=== PATIENT | male | born 1970 ===

== ENCOUNTER 2017-11-28 08:57 | Inpatient (IN) | payer OTHER ==
--- NOTE | 2017-11-28 09:32 | C.PDOC ---
History Of Present Illness 47 y/o male presents to ED with c/o vomiting and watery diarrhea for 4 days. Patient admits to binge drinking ETOH for 20 consecutive days and stopped 8 days ago. Admits to h/o drinking daily in the past. Patient also reports "my eyes are yellow," dark urine, feeling bloated when eating, and "brown" vomiting. (+) weakness. Patient denies fever, hematemisis, drug use, dysuria, sob, hematochezia, recent travel, or any other complaints at this time. 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 History/Exam Limitations: no limitations Onset/Duration Of Symptoms: Days Current Symptoms Are (Timing): Still Present Location Of Pain/Discomfort: Diffuse Past Medical History Reviewed: Historical Data, Nursing Documentation, Vital Signs Vital Signs: Last Vital Signs Temp 99.2 F 11/28/17 15:46 Pulse 65 11/28/17 15:46 Resp 18 11/28/17 15:46 BP 125/70 11/28/17 15:46 Pulse Ox 96 11/28/17 18:14 Surgical History: No Surg Hx Family History: States: No Known Family Hx - Social History Hx Tobacco Use: No Hx Alcohol Use: Yes (daily) Hx Substance Use: No - Immunization History Hx Influenza Vaccination: No Review Of Systems Except As Marked, All Systems Reviewed And Found Negative. Constitutional: Negative for: Fever, Chills Gastrointestinal: Positive for: Vomiting, Abdominal Pain, Diarrhea Genitourinary: Negative for: Dysuria, Hematuria Musculoskeletal: Negative for: Back Pain Skin: Negative for: Rash Physical Exam - Physical Exam Appears: Non-toxic, No Acute Distress Skin: Warm, Dry, No Rash, Jaundice Head: Atraumatic, Normacephalic Eye(s): bilateral: PERRL, EOMI, Scleral Icterus Nose: Normal Oral Mucosa: Moist Neck: Normal ROM, Supple Chest: Symmetrical Cardiovascular: Rhythm Regular Respiratory: Normal Breath Sounds, No Accessory Muscle Use, No Rales, No Rhonch i, No Wheezing Gastrointestinal/Abdominal: Tenderness (diffuse), Distention, No Guarding, No Rebound Back: No CVA Tenderness Extremity: Normal ROM Neurological/Psych: Oriented x3, Normal Speech, Normal Cognition ED Course And Treatment - Laboratory Results Result Diagrams: 11/28/17 18:10 09/24/18 10:17 O2 Sat by Pulse Oximetry: 96 (RA) Pulse Ox Interpretation: Normal - CT Scan/US CT abd/pelvis Other Rad Studies (CT/US): Read By Radiologist, Radiology Report Reviewed CT/US Interpretation: PROCEDURE: CT Abdomen and Pelvis with contrast. HISTORY: Abdominal pain. COMPARISON: None. TECHNIQUE: CT scan of the abdomen and pelvis was performed after administration of intravenous contrast. Oral contrast was not administered. Coronal and sagittal reformatted images were obtained. Contrast dose: 100 mL Visipaque 320. Radiation dose: Total exam DLP = 1020.41 mGy-cm. This CT exam was performed using one or more of the following dose reduction techniques: Automated exposure control, adjustment of the mA and/or kV according to patient size, and/or use of iterative reconstruction technique. FINDINGS: LOWER THORAX: The lung bases are clear. There is mild subsegmental atelectasis in the left lateral basal segment. LIVER: Moderate hepatomegaly and fatty liver. The liver has nodular contour.. No gross lesion or ductal dilatation. GALLBLADDER AND BILE DUCTS: The gallbladder is distended. There are no calcified gallstones. There is mild gallbladder wall thickening. PANCREAS: Normal in size with homogeneous enhancement. No gross lesion or ductal dilatation. SPLEEN: Moderate splenomegaly. Normal enhancement. ADRENALS: No discrete nodule. KIDNEYS AND URETERS: Normal in size with homogeneous enhancement. No hydronephrosis. No solid mass. VASCULATURE: No aortic aneurysm. BOWEL: The proximal small bowel loops are normal in caliber. There is mild dilatation of fluid-filled mid small bowel loops in the right mid abdomen. The distal small bowel loops and terminal ileum are normal. The colon is normal in caliber and there is fluid and fecal material in the colon and rectum. No bowel obstruction. APPENDIX: Normal appendix. PERITONEUM: Small amount of free fluid in the right lower quadrant.. No free air. LYMPH NODES: No enlarged lymph nodes. BLADDER: Well distended and normal in appearance. REPRODUCTIVE: The prostate gland is normal in size. BONES: No acute fracture. Within normal limits for the patient's age. OTHER FINDINGS: None. IMPRESSION: 1. Mild dilatation of fluid-filled mid small bowel loops in the right mid abdomen, nonspecific and could be related to nonspecific enteritis, ileus or developing partial small bowel obstruction. 2. Moderate hepatosplenomegaly and fatty liver. Nodular contour of the liver could rep resent cirrhosis. Progress Note: Blood work, Urine culture, UA ordered. D/w patient CT scan findings and discussed plan of admission. D/w Dr. Azar hospitalist, accepted patient under her service for hyperbilirubinemia. Disposition - Disposition Disposition: HOSPITALIZED Disposition Time: 15:00 Condition: STABLE - Clinical Impression Clinical Impression: Hyperbilirubinemia, Cirrhosis, Alcohol abuse - PA / [employer] / Resident Statement MD/DO has reviewed & agrees with the documentation as recorded. - Scribe Statement The provider has reviewed the documentation as recorded by the Jose Cruzibsarath Bonilla All medical record entries made by the Juan Manuel were at my direction and personally dictated by me. I have reviewed the chart and agree that the record accurately reflects my personal performance of the history, physical exam, medical decision making, and the department course for this patient. I have also personally directed, reviewed, and agree with the discharge instructions and disposition.
[2017-11-28 10:24] LABS: BASO # 0.1 K/uL (0.0-0.2); BASO % 1.4 % (0.0-2.0); EOS # 0.1 K/uL (0.0-0.7); EOS % 1.3 % (0.0-4.0); HEMOGLOBIN 13.7 g/dL (12.0-18.0); LYMPH # 1.2 K/uL (1.0-4.3); LYMPH % 12.6 % (20.0-40.0); MEAN CELL VOLUME 101.5 fL (80.0-94.0); MEAN CORPUSCULAR HEMOGLOBIN 35.7 pg (27.0-31.0); MEAN CORPUSCULAR HGB CONC 35.2 g/dL (33.0-37.0); MEAN PLATELET VOLUME 10.2 fL (7.2-11.7); MONO # 0.6 K/uL (0.0-0.8); NEUT # 7.2 K/uL (1.8-7.0); NEUT % 77.7 % (50.0-75.0); RBC 3.82 Mil/uL (4.40-5.90); RED CELL DISTRIBUTION WIDTH 15.4 % (11.5-14.5); WHITE BLOOD COUNT 9.2 K/uL (4.8-10.8)
[2017-11-28 10:33] LABS: URINE BACTERIA RARE (<OCC); URINE BILIRUBIN 2+ (NEGATIVE); URINE BLOOD NEGATIVE (NEGATIVE); URINE CLARITY Clear (Clear); URINE COLOR Amber (YELLOW); URINE GLUCOSE (UA) NORMAL (Normal); URINE LEUKOCYTE ESTERASE NEG Leu/uL (Negative); URINE PROTEIN NEGATIVE (NEGATIVE)
[2017-11-28 10:37] LABS: ALB/GLOB RATIO 0.8 (1.0-2.1); ALBUMIN 3.6 g/dL (3.5-5.0); ALT/SGPT 65 U/L (21-72); AMYLASE 60 U/L (30-110); AST/SGOT 91 U/L (17-59); BLOOD UREA NITROGEN 6 mg/dL (9-20); CALCIUM 8.5 mg/dl (8.6-10.4); GFR NON-AFRICAN AMERICAN > 60; LIPASE 143 U/L (23-300)
[2017-11-28 11:08] LABS: HEPATITIS B SURFACE AG Negative (NEGATIVE)
[2017-11-28 11:10] LABS: BARBITURATES, UR NEGATIVE (NEGATIVE); BENZODIAZEPINES, UR NEGATIVE (NEGATIVE)
[2017-11-28 11:13] LABS: HEPATITIS A IGM NEGATIVE (NEGATIVE); HEPATITIS B CORE AB NEGATIVE (NEGATIVE)
[2017-11-28 11:25] LABS: HEPATITIS C ANTIBODY NEGATIVE (NEGATIVE)
[2017-11-28 11:27] LABS: OPIATES, UR NEGATIVE (NEGATIVE); PHENCYCLIDINE, UR NEGATIVE (NEGATIVE)
[2017-11-28] MEDS ORDERED: Iodixanol 320 MG/ML 100 ML BOTTLE IV ONE (12:02)
--- NOTE | 2017-11-28 13:21 | CT ---
Date of service: 11/28/2017 PROCEDURE: CT Abdomen and Pelvis with contrast HISTORY: Abdominal pain COMPARISON: None. TECHNIQUE: CT scan of the abdomen and pelvis was performed after administration of intravenous contrast. Oral contrast was not administered. Coronal and sagittal reformatted images were obtained. Contrast dose: 100 mL Visipaque 320 Radiation dose: Total exam DLP = 1020.41 mGy-cm. This CT exam was performed using one or more of the following dose reduction techniques: Automated exposure control, adjustment of the mA and/or kV according to patient size, and/or use of iterative reconstruction technique. FINDINGS: LOWER THORAX: The lung bases are clear. There is mild subsegmental atelectasis in the left lateral basal segment. LIVER: Moderate hepatomegaly and fatty liver. The liver has nodular contour.. No gross lesion or ductal dilatation. GALLBLADDER AND BILE DUCTS: The gallbladder is distended. There are no calcified gallstones. There is mild gallbladder wall thickening. PANCREAS: Normal in size with homogeneous enhancement. No gross lesion or ductal dilatation. SPLEEN: Moderate splenomegaly. Normal enhancement. ADRENALS: No discrete nodule. KIDNEYS AND URETERS: Normal in size with homogeneous enhancement. No hydronephrosis. No solid mass. VASCULATURE: No aortic aneurysm. BOWEL: The proximal small bowel loops are normal in caliber. There is mild dilatation of fluid-filled mid small bowel loops in the right mid abdomen. The distal small bowel loops and terminal ileum are normal. The colon is normal in caliber and there is fluid and fecal material in the colon and rectum. No bowel obstruction. APPENDIX: Normal appendix. PERITONEUM: Small amount of free fluid in the right lower quadrant.. No free air. LYMPH NODES: No enlarged lymph nodes. BLADDER: Well distended and normal in appearance. REPRODUCTIVE: The prostate gland is normal in size. BONES: No acute fracture. Within normal limits for the patient's age. OTHER FINDINGS: None. IMPRESSION: 1. Mild dilatation of fluid-filled mid small bowel loops in the right mid abdomen, nonspecific and could be related to nonspecific enteritis, ileus or developing partial small bowel obstruction. 2. Moderate hepatosplenomegaly and fatty liver. Nodular contour of the liver could represent cirrhosis.
--- NOTE | 2017-11-28 17:02 | CP.PCM.HP ---
<Darvin Montalvo - Last Filed: 11/28/17 17:53> History of Present Illness - History of Present Illness History of Present Illness: Darvin Montalvo DO PGY-1, [facility] History and Physical for Dr. Azar's Service This is a 47 y o male PMHx EtOH abuse who presents today c/o 4 day history of vomiting and watery diarrhea. Pt admitted to coffee-ground emesis 4x/day for the past 4 days unchanged with eating or drinking fluids. The watery diarrhea was after every meal, denied blood or changes in color of stool. Pt also admits to associated abd pain in the mid-lower abd, that radiates laterally but not to his back. Admits that the pain worsens with eating any food at home. Denies trying new foods or recent changes in diet. Stated the pain was 9/10 this morning at 7:00 am after drinking juice and water at home, and thus decided to come to the ED. Pt not complaining of pain currently, states it is a 0/10, did not require pain medications in the ED. Pt also admits to associated fatigue/ tiredness and generalized weakness, able to walk without concerns, but feeling heaviness in his legs b/l 2/2 to the fatigue. Denied hx of sick contacts, recent anbx use, or recent travel. Denied fevers, chills, headache, chest pain, shortness of breath, nausea, constipation, urinary complaints, or other symptoms. 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 absent: Chills, Fever, Night Sweats , Weight Gain, Weight Loss - EENT Eyes: absent: Blurred Vision, Change in Vision Ears: absent: Decreased Hearing, Tinnitus, Disequilibrium, Dizziness Nose/Mouth/Throat: absent: Epistaxis, Dysphagia, Hoarsness, Mouth Pain, Throat Swelling - Cardiovascular Cardiovascular: absent: Chest Pain, Dyspnea on Exertion, Edema, Pain Radiating to Arm/Neck/Jaw, Palpitations - Respiratory Respiratory: absent: Cough, Dyspnea, Hemoptysis, Dyspnea on Exertion, Wheezing - Gastrointestinal Gastrointestinal: Abdominal Pain, Bloating, Coffee Ground Emesis, Diarrhea, Loose Stools, Vomiting. absent: Dysphagia, Early Satiety, Excessive Flatus, Nausea - Genitourinary Genitourinary: absent: Change in Urinary Stream, Difficulty Urinating, Dysuria, Hematuria, Urinary Frequency - Musculoskeletal Musculoskeletal: absent: Numbness, Tingling - Integumentary Integumentary: Jaundice. absent: Bleeding Lesions, Rash, Swelling, Unusual Bruising - Neurological Neurological: Weakness. absent: Abnormal Gait, Abnormal Movements, Behavioral Changes, Confusion, Syncope, Tremor - Psychiatric Psychiatric: absent: Anxiety, Auditory Hallucinations, Behavioral Changes, Confusion, Visual Hallucinations, Tactile Hallucinations - Hematologic/Lymphatic Hematologic: absent: Easy Bleeding, Easy Bruising Past Patient History - Past Social History Smoking Status: Never Smoked - CARDIAC Hx Hypertension: Yes - PSYCHIATRIC Hx Substance Use: No - SURGICAL HISTORY Hx Surgeries: No Meds Allergies/Adverse Reactions: Allergies Allergy/AdvReac Type Severity Reaction Status Date / Time Penicillins Allergy RASH Verified 11/28/17 22:38 Physical Exam - Constitutional Appears: Non-toxic, No Acute Distress Additional comments: Diffuse jaundice noted on exam, obese - Head Exam Head Exam: ATRAUMATIC, NORMOCEPHALIC - Eye Exam Eye Exam: EOMI, PERRL, Scleral icterus - ENT Exam ENT Exam: Mucous Membranes Moist - Neck Exam Neck exam: Positive for: Normal Inspection Additional comments: Supple, no JVD - Respiratory Exam Respiratory Exam: Clear to Auscultation Bilateral, NORMAL BREATHING PATTERN. absent: Rales, Rhonchi, Wheezes - Cardiovascular Exam Cardiovascular Exam: REGULAR RHYTHM, +S1, +S2. absent: Diastolic murmur, Gallop , Rubs, Systolic Murmur - GI/Abdominal Exam GI & Abdominal Exam: Distended, Normal Bowel Sounds, Soft. absent: Firm, Guarding, Rebound Additional comments: Hepatosplenomegaly, no tenderness to palpation in all 4 quadrants, no caput medusae or spider angiomas noted on exam - Extremities Exam Extremities exam: Positive for: normal capillary refill, pedal pulses present Additional comments: Palmar erythema noted in hands b/l - Neurological Exam Neurological exam: Alert, CN II-XII Intact, Normal Gait, Oriented x3, Reflexes Normal Additional comments: Sensation and motor intact throughout, no asterixis - Psychiatric Exam Psychiatric exam: Normal Affect, Normal Mood - Skin Skin Exam: Dry, Intact, Warm Additional comments: Diffuse jaundice on exam Results - Vital Signs Recent Vital Signs: Last Vital Signs Temp 99.2 F 11/28/17 15:46 Pulse 65 11/28/17 15:46 Resp 18 11/28/17 15:46 BP 125/70 11/28/17 15:46 Pulse Ox 96 11/28/17 15:54 - Labs Result Diagrams: 11/28/17 10:17 11/28/17 10:17 Labs: Laboratory Results - last 24 hr 11/28/17 11/28/17 11/28/17 10:17 10:17 10:17 WBC 9.2 D RBC 3.82 L Hgb 13.7 D Hct 38.8 MCV 101.5 H MCH 35.7 H MCHC 35.2 RDW 15.4 H Plt Count 166 MPV 10.2 Neut % (Auto) 77.7 H Lymph % (Auto) 12.6 L Erie % (Auto) 7.0 Eos % (Auto) 1.3 Baso % (Auto) 1.4 Neut # (Auto) 7.2 H Lymph # (Auto) 1.2 Erie # (Auto) 0.6 Eos # (Auto) 0.1 Baso # (Auto) 0.1 Sodium 136 Potassium 3.6 Chloride 105 Carbon Dioxide 20 L Anion Gap 15 BUN 6 L Creatinine 0.4 L Est GFR ( Amer) > 60 Est GFR (Non-Af Amer) > 60 Random Glucose 116 H Calcium 8.5 L Total Bilirubin 12.1 H AST 91 H ALT 65 Alkaline Phosphatase 290 H Total Protein 7.9 Albumin 3.6 Globulin 4.3 H Albumin/Globulin Ratio 0.8 L Amylase 60 Lipase 143 Urine Color Tamika Urine Clarity Clear Urine pH 6.0 Ur Specific Gause 1.016 Urine Protein Negative Urine Glucose (UA) Normal Urine Ketones Negative Urine Blood Negative Urine Nitrate Negative Urine Bilirubin 2+ H Urine Urobilinogen 4.0 Ur Leukocyte Esterase Neg Urine WBC (Auto) 1 Urine RBC (Auto) 2 Urine Bacteria Rare Urine Opiates Screen Urine Methadone Screen Ur Barbiturates Screen Ur Phencyclidine Scrn Ur Amphetamines Screen U Benzodiazepines Scrn U Oth Cocaine Metabols U Cannabinoids Screen Alcohol, Quantitative < 10 Hepatitis A IgM Ab Hep Bs Antigen Hep B Core IgM Ab Hepatitis C Antibody 11/28/17 11/28/17 10:17 10:17 WBC RBC Hgb Hct MCV MCH MCHC RDW Plt Count MPV Neut % (Auto) Lymph % (Auto) Erie % (Auto) Eos % (Auto) Baso % (Auto) Neut # (Auto) Lymph # (Auto) Erie # (Auto) Eos # (Auto) Baso # (Auto) Sodium Potassium Chloride Carbon Dioxide Anion Gap BUN Creatinine Est GFR ( Amer) Est GFR (Non-Af Amer) Random Glucose Calcium Total Bilirubin AST ALT Alkaline Phosphatase Total Protein Albumin Globulin Albumin/Globulin Ratio Amylase Lipase Urine Color Urine Clarity Urine pH Ur Specific Gause Urine Protein Urine Glucose (UA) Urine Ketones Urine Blood Urine Nitrate Urine Bilirubin Urine Urobilinogen Ur Leukocyte Esterase Urine WBC (Auto) Urine RBC (Auto) Urine Bacteria Urine Opiates Screen Negative Urine Methadone Screen Negative Ur Barbiturates Screen Negative Ur Phencyclidine Scrn Negative Ur Amphetamines Screen Negative U Benzodiazepines Scrn Negative U Oth Cocaine Metabols Negative U Cannabinoids Screen Negative Alcohol, Quantitative Hepatitis A IgM Ab Negative Hep Bs Antigen Negative Hep B Core IgM Ab Negative Hepatitis C Antibody Negative Assessment & Plan - Assessment and Plan (Free Text) Assessment: This is a 47 y o male PMHx EtOH abuse who presented c/o 4 day history of vomiting and watery diarrhea. Found to have hyperbilirubinemia of 12.1, AST 91, ALT 65, ALP 290. Concern for hepatitis 2/2 EtOH abuse. Abd/pelvis CT on admission demonstrated mild dilatation of fluid-filled mid small bowel loops in R mid abdomen, non-specific, could be related to non-specific enteritis, ileus, or developing partial SBO; moderate hepatosplenomegaly and fatty liver, nodular contour of liver could represent cirrhosis. GI (Dr. Alarcon) and General Surgery ( Dr. Pemberton) consulted. Plan: Alcoholic hepatitis/cirrhosis AST 91, ALT 65, ALP 290, total bili 12.5 on admission 2+ bilirubin on U/a Utox neg, Hep B and C antibodies neg Amylase and lipase wnl GGT, direct bili, coags ordered HIV test pending Type and cross ordered for hx coffee-ground emesis, no active GI bleed at this time, transfusion consent signed by pt, continue to trend CBC Banana bag ordered Pt to remain NPO CT abd/pelvis findings as described above U/s abd complete demonstrates moderate hepatosplenomegaly, diffuse increased echogenicity in liver that may reflect hepatic steatosis however parenchymal infectious etiologies cannot be entirely excluded; thick GB wall and mild pericholecystic fluid nonspecific, 4 mm GB polyp along anterior wall, no cholelithiasis or bilary dilatation. GI consulted (Dr. Alarcon), recs appreciated Ascites Findings described on abd/pelvis CT Pending coags prior to possible paracentesis R/o spontaneous bacterial peritonitis as etiology vs. cirrhosis Cipro 400 mg IVPB q 12 h Flagyl 500 mg IV q 8 h Afebrile on admission, vitals stable, continue to monitor GI consulted, recs appreciated EtOH abuse Banana bag ordered Last EtOH intake by pt 8 days ago, out of period of demonstrating symptoms of EtOH withdrawal, continue to monitor Ileitis vs. GB distension R/o ileitis, enteritis, developing partial SBO on CT abd/pelvis; GB distension and mild GB wall thickening General Surgery consulted, recs appreciated Pt NPO Diarrhea Pending stool cx, stool ova and parasites GI consulted, recs appreciated Continue to monitor GI ppx: Protonix IVP q 12 h DVT ppx: SCDs Pt seen, examined with, and plan discussed with Dr. Azar, attending Darvin Montalvo DO PGY-1, [employer] Pager #[phone] <Amelia Azar V - Last Filed: 11/28/17 22:47> Results - Vital Signs Recent Vital Signs: Last Vital Signs Temp 99.4 F 11/28/17 21:44 Pulse 68 11/28/17 21:44 Resp 18 11/28/17 21:44 BP 125/72 11/28/17 21:44 Pulse Ox 96 11/28/17 21:44 - Labs Result Diagrams: 11/28/17 18:10 11/28/17 10:17 Labs: Laboratory Results - last 24 hr 11/28/17 11/28/17 11/28/17 10:17 10:17 10:17 WBC 9.2 D RBC 3.82 L Hgb 13.7 D Hct 38.8 MCV 101.5 H MCH 35.7 H MCHC 35.2 RDW 15.4 H Plt Count 166 MPV 10.2 Neut % (Auto) 77.7 H Lymph % (Auto) 12.6 L Erie % (Auto) 7.0 Eos % (Auto) 1.3 Baso % (Auto) 1.4 Neut # (Auto) 7.2 H Lymph # (Auto) 1.2 Erie # (Auto) 0.6 Eos # (Auto) 0.1 Baso # (Auto) 0.1 PT INR APTT Sodium 136 Potassium 3.6 Chloride 105 Carbon Dioxide 20 L Anion Gap 15 BUN 6 L Creatinine 0.4 L Est GFR ( Amer) > 60 Est GFR (Non-Af Amer) > 60 Random Glucose 116 H Calcium 8.5 L Total Bilirubin 12.1 H Direct Bilirubin GGT AST 91 H ALT 65 Alkaline Phosphatase 290 H Ammonia Total Protein 7.9 Albumin 3.6 Globulin 4.3 H Albumin/Globulin Ratio 0.8 L Amylase 60 Lipase 143 Urine Color Tamika Urine Clarity Clear Urine pH 6.0 Ur Specific Gause 1.016 Urine Protein Negative Urine Glucose (UA) Normal Urine Ketones Negative Urine Blood Negative Urine Nitrate Negative Urine Bilirubin 2+ H Urine Urobilinogen 4.0 Ur Leukocyte Esterase Neg Urine WBC (Auto) 1 Urine RBC (Auto) 2 Urine Bacteria Rare Urine Opiates Screen Urine Methadone Screen Ur Barbiturates Screen Ur Phencyclidine Scrn Ur Amphetamines Screen U Benzodiazepines Scrn U Oth Cocaine Metabols U Cannabinoids Screen Alcohol, Quantitative < 10 Hepatitis A IgM Ab Hep Bs Antigen Hep B Core IgM Ab Hepatitis C Antibody Blood Type Antibody Screen 11/28/17 11/28/17 11/28/17 10:17 10:17 18:10 WBC RBC Hgb Hct MCV MCH MCHC RDW Plt Count MPV Neut % (Auto) Lymph % (Auto) Erie % (Auto) Eos % (Auto) Baso % (Auto) Neut # (Auto) Lymph # (Auto) Erie # (Auto) Eos # (Auto) Baso # (Auto) PT 15.3 H INR 1.4 APTT 38 H Sodium Potassium Chloride Carbon Dioxide Anion Gap BUN Creatinine Est GFR ( Amer) Est GFR (Non-Af Amer) Random Glucose Calcium Total Bilirubin Direct Bilirubin GGT AST ALT Alkaline Phosphatase Ammonia Total Protein Albumin Globulin Albumin/Globulin Ratio Amylase Lipase Urine Color Urine Clarity Urine pH Ur Specific Gause Urine Protein Urine Glucose (UA) Urine Ketones Urine Blood Urine Nitrate Urine Bilirubin Urine Urobilinogen Ur Leukocyte Esterase Urine WBC (Auto) Urine RBC (Auto) Urine Bacteria Urine Opiates Screen Negative Urine Methadone Screen Negative Ur Barbiturates Screen Negative Ur Phencyclidine Scrn Negative Ur Amphetamines Screen Negative U Benzodiazepines Scrn Negative U Oth Cocaine Metabols Negative U Cannabinoids Screen Negative Alcohol, Quantitative Hepatitis A IgM Ab Negative Hep Bs Antigen Negative Hep B Core IgM Ab Negative Hepatitis C Antibody Negative Blood Type Antibody Screen 11/28/17 11/28/17 11/28/17 18:10 18:10 18:10 WBC 9.5 RBC 4.01 L Hgb 14.4 Hct 41.3 MCV 103.0 H MCH 35.9 H MCHC 34.9 RDW 15.9 H Plt Count 195 MPV 10.0 Neut % (Auto) 77.7 H Lymph % (Auto) 13.1 L E[place] % (Auto) 7.5 Eos % (Auto) 1.0 Baso % (Auto) 0.7 Neut # (Auto) 7.4 H Lymph # (Auto) 1.2 Erie # (Auto) 0.7 Eos # (Auto) 0.1 Baso # (Auto) 0.1 PT INR APTT Sodium Potassium Chloride Carbon Dioxide Anion Gap BUN Creatinine Est GFR ( Amer) Est GFR (Non-Af Amer) Random Glucose Calcium Total Bilirubin Direct Bilirubin GGT 270 H AST ALT Alkaline Phosphatase Ammonia Total Protein Albumin Globulin Albumin/Globulin Ratio Amylase Lipase 201 Urine Color Urine Clarity Urine pH Ur Specific Gause Urine Protein Urine Glucose (UA) Urine Ketones Urine Blood Urine Nitrate Urine Bilirubin Urine Urobilinogen Ur Leukocyte Esterase Urine WBC (Auto) Urine RBC (Auto) Urine Bacteria Urine Opiates Screen Urine Methadone Screen Ur Barbiturates Screen Ur Phencyclidine Scrn Ur Amphetamines Screen U Benzodiazepines Scrn U Oth Cocaine Metabols U Cannabinoids Screen Alcohol, Quantitative Hepatitis A IgM Ab Hep Bs Antigen Hep B Core IgM Ab Hepatitis C Antibody Blood Type O POSITIVE Antibody Screen Negative 11/28/17 11/28/17 18:10 20:27 WBC RBC Hgb Hct MCV MCH MCHC RDW Plt Count MPV Neut % (Auto) Lymph % (Auto) Erie % (Auto) Eos % (Auto) Baso % (Auto) Neut # (Auto) Lymph # (Auto) Erie # (Auto) Eos # (Auto) Baso # (Auto) PT INR APTT Sodium Potassium Chloride Carbon Dioxide Anion Gap BUN Creatinine Est GFR ( Amer) Est GFR (Non-Af Amer) Random Glucose Calcium Total Bilirubin Direct Bilirubin 12.1 H GGT AST ALT Alkaline Phosphatase Ammonia 15 Total Protein Albumin Globulin Albumin/Globulin Ratio Amylase Lipase Urine Color Urine Clarity Urine pH Ur Specific Gause Urine Protein Urine Glucose (UA) Urine Ketones Urine Blood Urine Nitrate Urine Bilirubin Urine Urobilinogen Ur Leukocyte Esterase Urine WBC (Auto) Urine RBC (Auto) Urine Bacteria Urine Opiates Screen Urine Methadone Screen Ur Barbiturates Screen Ur Phencyclidine Scrn Ur Amphetamines Screen U Benzodiazepines Scrn U Oth Cocaine Metabols U Cannabinoids Screen Alcohol, Quantitative Hepatitis A IgM Ab Hep Bs Antigen Hep B Core IgM Ab Hepatitis C Antibody Blood Type Antibody Screen Attending/Attestation - Attestation I have personally seen and examined this patient.: Yes I have fully participated in the care of the patient.: Yes I have reviewed all pertinent clinical information: Yes Notes (Text): Patient seen, examined, case discussed with medical insurance verifier. This is a 47-year-old male past medical history significant for alcohol abuse, former smoker who came to the emergency room following diarrhea for 4 days, jaundice which she noticed about 4 days ago with associated pruritus and questionable coffee ground emesis which she reports throat which was dark in color. Patient noted for almost 2 weeks he's been chronically drinking alcohol about 10-12 beers a day and has not been eating as well reports the alcohol helps to suppress his appetite. He also reports the change of stool reporting diarrhea no blood for the past 4 days as well. Patient does not know why he drinks so much every day by did indicate to him that does take a toll on the body specifically liver as well as he is a former smoker quit about 20 years ago but did smoke sparingly. Patient has not seen a GI before nor confirmed liver cirrhosis. Noted MCV greater than 80 likely macrocytic given his alcohol use will check a folate and B12 level Coags initially not available on admission however have later resulted INR 1.4 Renal function normal Total bili is elevated 12.1, we have order for direct bili which is also elevated 12.1 view ordered a GGT which is also elevated to 70 indicating liver issues as well as AST is also elevated 91 and alkaline phosphatase is 290. Ammonia is low normal lipase is normal. Hepatitis panel is negative. Tox is negative for drugs and alcohol level is less than 10 patient had admitted he drank about [address] abdomen pelvis: Mild dilatation of fluid-filled mid small bowel loops in the right abdomen and nonspecific could be related to enteritis, a lady ileus or developments partial small bowel structures. Moderate hepatosplenomegaly and fatty liver. Nodular contour of the liver could represent cirrhosis. The bladder is distended i gallstones and mild gallbladder wall thickening. Moderate splenomegaly. Abdominal ultrasound: Moderate hepatosplenomegaly. Diffuse increased echogenicity in the liver may reflect hepatic steatosis. Thick gallbladder wall and mild pericholecystic fluid nonspecific and there is a suspect 4 mm gallbladder polyp along the anterior wall. No cholelithiasis or biliary dilatation. Assessment/plan #1. Obstructive jaundice Ascites Suspected alcohol liver disease/cirrhosis Transaminitis Assessment/plan * GI board help appreciated * Gen. surgery on board help appreciated * Attach reports of CT abdomen and pelvis and abdominal ultrasound * We'll keep nothing by mouth * We'll consult IR for paracentesis as well as fluid orders for paracentesis of the ascites * Patient started on prophylactic antibiotic: Ciprofloxacin to cover for SBP. Patient is allergic to penicillin. * Noted elevated bilirubin, direct bilirubin elevated, GGT elevated * Hepatitis serology negative * Patient counseled that he will need to stop his alcohol use #2. Diarrhea Assessment/plan * Suspected secondary to either alcohol and/or liver * Stool ova and parasite, stool culture ordered #3. Questionable enteritis versus ileus versus small bowel Assessment/plan * Given the CT abdomen and pelvis findings * Consult general surgery of radiology read of CT abdomen and pelvis #4. Emesis Assessment/plan * Hemoglobin noted to be 13 we have repeated it remains at 14 * Patient started on Protonix 40 mg IV every 12 * Patient to be nothing by mouth * Patient to be evaluated by GI #5. Alcohol abuse Assessment/plan * Patient provided banana bag * We'll need to check folate, B12 levels * Seizure precautions * Patient will need social media developer consult to get him connected to Alcoholics Anonymous to promote sobriety #6. Prophylactic measure * Chemical anticoagulation contraindicated in light of paracentesis for tomorrow and questionable GI bleed * Protonic 40 mg IV every 12 * Seizure Precautions * Nothing by mouth * Blood transfusion consent obtained by resident and will have 2 units of PRBC if needed
--- NOTE | 2017-11-28 17:11 | US ---
Date of service: 11/28/2017 HISTORY: pain COMPARISON: None. TECHNIQUE: Grayscale imaging was performed. FINDINGS: LIVER: Measures 21.3 cm. There is diffuse increased echogenicity of the liver parenchyma. No mass. No intrahepatic bile duct dilatation. GALLBLADDER: There are no gallstones. There is mild gallbladder wall thickening. 4 mm non dependent echogenic lesion along the anterior wall likely represents a polyp. Mild pericholecystic fluid. The sonographic Ferris's sign is negative. COMMON BILE DUCT: Measures 4.2 mm. No stones. No dilatation. PANCREAS: Obscured by bowel gas. No mass. No ductal dilatation. RIGHT KIDNEY: Measures 13.2cm. Normal echogenicity. No calculus, mass, or hydronephrosis. LEFT KIDNEY: Measures 12.0cm. Normal echogenicity. No calculus, mass, or hydronephrosis. SPLEEN: Enlarged and measures 15.8 cm. No mass. AORTA: No aneurysmal dilatation. IVC: Unremarkable. OTHER FINDINGS: None. IMPRESSION: Moderate hepatosplenomegaly. Diffuse increased echogenicity in the liver may reflect hepatic steatosis however parenchymal infectious/ inflammatory etiologies cannot be entirely excluded. Clinical and laboratory correlation is advised. Thick gallbladder wall and mild pericholecystic fluid, nonspecific and could be related to primary or secondary etiologies. Suspect 4 mm gallbladder polyp along the anterior wall. No cholelithiasis or biliary dilatation.
--- NOTE | 2017-11-28 18:16 | CP.PCM.CON ---
Addendum entered and electronically signed by Fawn Hester DO 11/29/17 08:29: Child Ohara class B Original Note: History of Present Illness - History of Present Illness History of Present Illness: General surgery consult note for Dr. Pemberton-Fawn Hester, PGY-2 Pt S & E at bedside at 1750 47M w/PMH sig for ETOH abuse consulted for ileitis vs. GB distention. Pt admitted to hospital for hyperbilirubinemia & cirrhosis. Pt reports lower abdominal pain this AM- now resolved, recent constipation then diarrhea x 2 (nb, acholic) today, dark urine -resolved, jaundice x 4 days. Denies N & V, F & C, SOB, CP, dysuria, hematuria, hematochezia, numbness or tingling of hands or feet or other complaints. In ED: T bili 12.1, Afebrile, no leukocytosis, UDS negative, hepatitis Panel neg. CT ab w/findings of Mild dilatation of fluid-filled mid SB loops in Right mid abdomen- nonspecific. Ab U/S w/findings of Moderate hepatosplenomegaly. Diffuse increased echogenicity in liver -hepatic steatosis or infection or inflammation. Thick GB wall and mild pericholecystic fluid, nonspecific. Suspect 4 mm gallbladder polyp along the anterior wall. No cholelithiasis or biliary dilatation. Moderate hepatosplenomegaly and fatty liver. Nodular contour of the liver could represent cirrhosis. PMH: Denies PSH: Denies All: PCN (hives) SH: Admits to ETOH use 8-10 drinks daily x 20 yrs, recently went on a binge, denies tobacco or illicit drug use FH: Non contributory PMD: Denies Review of Systems - Review of Systems All systems: reviewed and no additional remarkable complaints except - Constitutional Constitutional: Weakness. absent: Chills, Fever, Increased Appetite - EENT Nose/Mouth/Throat: absent: Sore Throat - Cardiovascular Cardiovascular: absent: Chest Pain - Gastrointestinal Gastrointestinal: Abdominal Pain (resolved), Constipation, Diarrhea. absent: Excessive Flatus, Hematemesis, Hematochezia, Melena, Nausea, Vomiting - Genitourinary Genitourinary: absent: Change in Urinary Stream, Dysuria, Hematuria, Pyuria - Musculoskeletal Musculoskeletal: absent: Back Pain, Numbness, Tingling - Integumentary Integumentary: Jaundice. absent: Rash - Neurological Neurological: Weakness. absent: Dizziness - Psychiatric Psychiatric: absent: Change in Appetite Past Patient History - Past Social History Smoking Status: Never Smoked - CARDIAC Hx Hypertension: Yes - PSYCHIATRIC Hx Substance Use: No - SURGICAL HISTORY Hx Surgeries: No Meds Allergies/Adverse Reactions: Allergies Allergy/AdvReac Type Severity Reaction Status Date / Time Penicillins Allergy RASH Verified 11/28/17 22:38 - Medications Medications: Current Medications Ciprofloxacin (Cipro 400mg/200ml Dsw) 400 mg in 200 mls @ 133 mls/hr IVPB Q12H PASTOR PRN Reason: Protocol Metronidazole (Flagyl) 500 mg in 100 mls @ 100 mls/hr IVPB Q8H PASTOR PRN Reason: Protocol Pantoprazole Sodium (Protonix Inj) 40 mg IVP Q12H PASTOR Physical Exam - Constitutional Appears: Non-toxic, No Acute Distress - Head Exam Head Exam: ATRAUMATIC, NORMAL INSPECTION, NORMOCEPHALIC - Eye Exam Eye Exam: EOMI, Normal appearance, Scleral icterus - ENT Exam ENT Exam: Mucous Membranes Moist, Normal Exam - Neck Exam Neck exam: Positive for: Full Rom, Normal Inspection. Negative for: Tenderness - Respiratory Exam Respiratory Exam: Clear to Auscultation Bilateral, NORMAL BREATHING PATTERN. absent: Rales, Rhonchi, Wheezes, Respiratory Distress - Cardiovascular Exam Cardiovascular Exam: REGULAR RHYTHM, +S1, +S2 - GI/Abdominal Exam GI & Abdominal Exam: Normal Bowel Sounds, Soft. absent: Distended (obese), Firm, Guarding, Hernia, Tenderness - Extremities Exam Extremities exam: Positive for: normal inspection. Negative for: pedal edema, tenderness - Back Exam Back exam: NORMAL INSPECTION. absent: CVA tenderness (L), CVA tenderness (R), tenderness - Neurological Exam Neurological exam: Alert, CN II-XII Intact, Oriented x3 - Psychiatric Exam Psychiatric exam: Normal Affect, Normal Mood - Skin Skin Exam: Dry, Intact, Warm Additional comments: jaundiced Results - Vital Signs Recent Vital Signs: Last Vital Signs Temp 99.2 F 11/28/17 15:46 Pulse 65 11/28/17 15:46 Resp 18 11/28/17 15:46 BP 125/70 11/28/17 15:46 Pulse Ox 96 11/28/17 15:54 - Labs Result Diagrams: 11/28/17 18:10 09/24/18 10:17 Labs: Laboratory Results - last 24 hr 11/28/17 11/28/17 11/28/17 10:17 10:17 10:17 WBC 9.2 D RBC 3.82 L Hgb 13.7 D Hct 38.8 MCV 101.5 H MCH 35.7 H MCHC 35.2 RDW 15.4 H Plt Count 166 MPV 10.2 Neut % (Auto) 77.7 H Lymph % (Auto) 12.6 L [place] % (Auto) 7.0 Eos % (Auto) 1.3 Baso % (Auto) 1.4 Neut # (Auto) 7.2 H Lymph # (Auto) 1.2 [place] # (Auto) 0.6 Eos # (Auto) 0.1 Baso # (Auto) 0.1 Sodium 136 Potassium 3.6 Chloride 105 Carbon Dioxide 20 L Anion Gap 15 BUN 6 L Creatinine 0.4 L Est GFR ( Amer) > 60 Est GFR (Non-Af Amer) > 60 Random Glucose 116 H Calcium 8.5 L Total Bilirubin 12.1 H AST 91 H ALT 65 Alkaline Phosphatase 290 H Total Protein 7.9 Albumin 3.6 Globulin 4.3 H Albumin/Globulin Ratio 0.8 L Amylase 60 Lipase 143 Urine Color Tamika Urine Clarity Clear Urine pH 6.0 Ur Specific [place] 1.016 Urine Protein Negative Urine Glucose (UA) Normal Urine Ketones Negative Urine Blood Negative Urine Nitrate Negative Urine Bilirubin 2+ H Urine Urobilinogen 4.0 Ur Leukocyte Esterase Neg Urine WBC (Auto) 1 Urine RBC (Auto) 2 Urine Bacteria Rare Urine Opiates Screen Urine Methadone Screen Ur Barbiturates Screen Ur Phencyclidine Scrn Ur Amphetamines Screen U Benzodiazepines Scrn U Oth Cocaine Metabols U Cannabinoids Screen Alcohol, Quantitative < 10 Hepatitis A IgM Ab Hep Bs Antigen Hep B Core IgM Ab Hepatitis C Antibody 11/28/17 11/28/17 10:17 10:17 WBC RBC Hgb Hct MCV MCH MCHC RDW Plt Count MPV Neut % (Auto) Lymph % (Auto) [place] % (Auto) Eos % (Auto) Baso % (Auto) Neut # (Auto) Lymph # (Auto) [place] # (Auto) Eos # (Auto) Baso # (Auto) Sodium Potassium Chloride Carbon Dioxide Anion Gap BUN Creatinine Est GFR ( Amer) Est GFR (Non-Af Amer) Random Glucose Calcium Total Bilirubin AST ALT Alkaline Phosphatase Total Protein Albumin Globulin Albumin/Globulin Ratio Amylase Lipase Urine Color Urine Clarity Urine pH Ur Specific [place] Urine Protein Urine Glucose (UA) Urine Ketones Urine Blood Urine Nitrate Urine Bilirubin Urine Urobilinogen Ur Leukocyte Esterase Urine WBC (Auto) Urine RBC (Auto) Urine Bacteria Urine Opiates Screen Negative Urine Methadone Screen Negative Ur Barbiturates Screen Negative Ur Phencyclidine Scrn Negative Ur Amphetamines Screen Negative U Benzodiazepines Scrn Negative U Oth Cocaine Metabols Negative U Cannabinoids Screen Negative Alcohol, Quantitative Hepatitis A IgM Ab Negative Hep Bs Antigen Negative Hep B Core IgM Ab Negative Hepatitis C Antibody Negative Assessment & Plan - Assessment and Plan (Free Text) Assessment: 47M w/PMH sig for ETOH abuse consulted for ileitis vs. GB distention, unlikely GB etiology, likely due to cirrhosis Plan: Admit to medical service ETOH CIWA protocol Monitor labs Anti-emetic PRN IVF NPO Abx No surgical intervention at this time Will DW Dr. Nilay Hester, PGY-2 - Date & Time Date: 11/28/17 Time: 18:14
[2017-11-28 18:22] LABS: BASO # 0.1 K/uL (0.0-0.2); BASO % 0.7 % (0.0-2.0); EOS # 0.1 K/uL (0.0-0.7); HEMOGLOBIN 14.4 g/dL (12.0-18.0); LYMPH # 1.2 K/uL (1.0-4.3); LYMPH % 13.1 % (20.0-40.0); MEAN CORPUSCULAR HEMOGLOBIN 35.9 pg (27.0-31.0); MEAN CORPUSCULAR HGB CONC 34.9 g/dL (33.0-37.0); MONO # 0.7 K/uL (0.0-0.8); MONO % 7.5 % (0.0-10.0); NEUT # 7.4 K/uL (1.8-7.0); NEUT % 77.7 % (50.0-75.0); RBC 4.01 Mil/uL (4.40-5.90); RED CELL DISTRIBUTION WIDTH 15.9 % (11.5-14.5); WHITE BLOOD COUNT 9.5 K/uL (4.8-10.8)
[2017-11-28] MEDS ORDERED: Folic Acid 1 MG, Thiamine 100 MG, Multivitamin (MVI) 10 ML in Dextrose 5% In Water 1,00... IV PRN (18:30)
[2017-11-28 18:31] LABS: INR 1.4; PROTHROMBIN TIME 15.3 SECONDS (9.7-12.2)
[2017-11-28] MEDS ORDERED: metroNIDAZOLE IV 500 mg/100 ml 500 MG/100 ML BAG ONE (18:34)
[2017-11-28 18:43] LABS: GAMMA GLUTAMYL TRANSPEPTIDASE 270 U/L (8-78); LIPASE 201 U/L (23-300)
[2017-11-28] MEDS: metroNIDAZOLE IV 500 mg/100 ml 500 MG/100 ML BAG IVPB SCH (18:46)
[2017-11-28] MEDS ORDERED: Ciprofloxacin 400mg/200ml D5W 400 MG/200 ML BAG IVPB ONE (19:59)
[2017-11-28] MEDS: Ciprofloxacin 400mg/200ml D5W 400 MG/200 ML BAG IVPB SCH (19:59)
[2017-11-28] MEDS ORDERED: Phytonadione 10 mg/ml Inj (Adult) SC STA (22:25)
[2017-11-28 22:37] VITALS: RESP 20
[2017-11-29] MEDS: metroNIDAZOLE IV 500 mg/100 ml 500 MG/100 ML BAG IVPB SCH ×2 (01:04→17:57)
[2017-11-29] MEDS: Ciprofloxacin 400mg/200ml D5W 400 MG/200 ML BAG IVPB SCH ×2 (05:10→17:59)
[2017-11-29 05:59] LABS: INR 1.5
[2017-11-29 06:00] LABS: BASO # 0.1 K/uL (0.0-0.2); BASO % 0.8 % (0.0-2.0); EOS # 0.1 K/uL (0.0-0.7); EOS % 0.9 % (0.0-4.0); HEMOGLOBIN 12.3 g/dL (12.0-18.0); LYMPH # 1.1 K/uL (1.0-4.3); MEAN CELL VOLUME 102.8 fL (80.0-94.0); MEAN CORPUSCULAR HEMOGLOBIN 36.3 pg (27.0-31.0); MEAN CORPUSCULAR HGB CONC 35.4 g/dL (33.0-37.0); MEAN PLATELET VOLUME 10.5 fL (7.2-11.7); MONO # 0.6 K/uL (0.0-0.8); MONO % 8.3 % (0.0-10.0); NEUT # 5.8 K/uL (1.8-7.0); RBC 3.38 Mil/uL (4.40-5.90); RED CELL DISTRIBUTION WIDTH 15.9 % (11.5-14.5); WHITE BLOOD COUNT 7.6 K/uL (4.8-10.8)
[2017-11-29 06:22] LABS: ALB/GLOB RATIO 0.8 (1.0-2.1); ALT/SGPT 61 U/L (21-72); AST/SGOT 78 U/L (17-59); BLOOD UREA NITROGEN 7 mg/dL (9-20); CALCIUM 8.3 mg/dl (8.6-10.4); GFR NON-AFRICAN AMERICAN > 60
[2017-11-29 07:17] LABS: FOLATE 17.5 ng/mL
[2017-11-29] MEDS: Folic Acid 1 MG, Thiamine 100 MG, Multivitamin (MVI) 10 ML in Dextrose 5% In Water 1,00... IV SCH (15:57)
--- NOTE | 2017-11-29 18:57 | CP.PCM.PN ---
<Lillian Shelton P - Last Filed: 11/29/17 23:37> Subjective - Date & Time of Evaluation Date of Evaluation: 11/29/17 Time of Evaluation: 08:00 - Subjective Subjective: PGY-[address] Azar. Patient seen and examined at bedside. Patient states he feels much better. There has been no vomiting or diarrhea today. Denies nausea, abdominal pain, hematemesis, bloody stool, fever and chills. Objective - Vital Signs/Intake and Output Vital Signs (last 24 hours): Temp Pulse Resp BP Pulse Ox 98.9 F 66 20 110/65 96 11/29/17 16:00 11/29/17 16:00 11/29/17 16:00 11/29/17 16:00 11/29/17 16:00 Intake and Output: 11/29/17 11/29/17 06:59 18:59 Intake Total 600 Balance 600 - Medications Medications: Current Medications Furosemide (Lasix) 40 mg PO DAILY PASTOR Ciprofloxacin (Cipro 400mg/200ml Dsw) 400 mg in 200 mls @ 133 mls/hr IVPB Q12H PASTOR; Protocol Last Admin: 11/29/17 17:59 Dose: 133 mls/hr Metronidazole (Flagyl) 500 mg in 100 mls @ 100 mls/hr IVPB Q8H PASTOR; Protocol Last Admin: 11/29/17 17:57 Dose: 100 mls/hr Folic Acid 1 mg/ Thiamine HCl 100 mg/ Multivitamins/Vitamin C 10 ml/ Dextrose 1,011.2 mls @ 75 mls/hr IV Q24H PASTOR Last Admin: 11/29/17 15:57 Dose: 75 mls/hr Nicotine (Nicoderm Cq) 1 patch TD DAILY [facility] Pantoprazole Sodium (Protonix Inj) 40 mg IVP Q12H PASTOR Last Admin: 11/29/17 18:00 Dose: 40 mg Pneumococcal Polyvalent Vaccine (Pneumovax 23 Vaccine) 0.5 ml IM .ONCE ONE Stop: 12/01/17 10:01 Spironolactone (Aldactone) 50 mg PO BID PASTOR - Labs Labs: 11/29/17 05:43 11/29/17 05:43 PT 16.0 SECONDS (9.7-12.2) H 11/29/17 05:43 INR 1.5 11/29/17 05:43 APTT 38 SECONDS (21-34) H 11/28/17 18:10 - Constitutional Appears: No Acute Distress - Head Exam Head Exam: ATRAUMATIC, NORMOCEPHALIC - Eye Exam Eye Exam: EOMI, PERRL, Scleral icterus - ENT Exam ENT Exam: Mucous Membranes Moist Additional comments: mucous membranes noted to be jaundiced. - Neck Exam Neck Exam: Full ROM - Respiratory Exam Respiratory Exam: Clear to Ausculation Bilateral. absent: Rales, Rhonchi, Wheezes - Cardiovascular Exam Cardiovascular Exam: REGULAR RHYTHM, +S1, +S2 - GI/Abdominal Exam GI & Abdominal Exam: Distended, Soft, Normal Bowel Sounds. absent: Tenderness - Extremities Exam Extremities Exam: Full ROM. absent: Calf Tenderness, Pedal Edema - Neurological Exam Neurological Exam: Alert, Awake, Oriented x3 - Psychiatric Exam Psychiatric exam: Normal Affect, Normal Mood - Skin Additional comments: Obstructive jaundice Alcoholic liver disease/cirrhosis CT abd/pelvis 11/28/17: 1. Mild dilatation of fluid-filled mid small bowel loops in the right mid abdomen, nonspecific and could be related to nonspecific enteritis, ileus or developing partial small bowel obstruction. 2. Moderate hepatosplenomegaly and fatty liver. Nodular contour of the liver could represent cirrhosis. U/s abd complete 11/28/17: moderate hepatosplenomegaly, diffuse increased echogenicity in liver that may reflect hepatic steatosis however parenchymal infectious etiologies cannot be entirely excluded; thick GB wall and mild pericholecystic fluid nonspecific, 4 mm GB polyp along anterior wall, no cholelithiasis or bilary dilatation. Hepatitis panel negative GI consulted (Dr. Alarcon), recs appreciated Ascites Findings described on abd/pelvis CT SBP prophylaxis Cipro 400 mg IVPB q 12 h Flagyl 500 mg IV q 8 h IR consulted, paracentesis not indicated due to Afebrile on admission, vitals stable, continue to monitor GI, Dr. Alarcon, consulted, recs appreciated Start lasix 40mg PO daily, aldactone 50mg PO BID Diarrhea-improving F/u ova and parasite F/u stool cx EtOH abuse Banana bag ordered Last EtOH intake 8 days ago, past withdrawal time frame, continue to monitor Enteritis vs ileus vs SBO CT abd/pelvis 11/28/17: 1. Mild dilatation of fluid-filled mid small bowel loops in the right mid abdomen, nonspecific and could be related to nonspecific enteritis, ileus or developing partial small bowel obstruction General Surgery consulted, recs appreciated Diarrhea Pending stool cx, stool ova and parasites GI consulted, recs appreciated Continue to monitor Prophylaxis Protonix IVP q 12 h SCDs Assessment and Plan - Assessment and Plan (Free Text) Plan: Alcoholic liver disease/cirrhosis CT abd/pelvis:1. Mild dilatation of fluid-filled mid small bowel loops in the right mid abdomen, nonspecific and could be related to nonspecific enteritis, ileus or developing partial small bowel obstruction. 2. Moderate hepatosplenomegaly and fatty liver. Nodular contour of the liver could represent cirrhosis. U/s abd complete demonstrates moderate hepatosplenomegaly, diffuse increased ec hogenicity in liver that may reflect hepatic steatosis however parenchymal infectious etiologies cannot be entirely excluded; thick GB wall and mild pericholecystic fluid nonspecific, 4 mm GB polyp along anterior wall, no cholelithiasis or bilary dilatation. Hepatitis panel negative Advanced to regular diet GI consulted (Dr. Alarcon), recs appreciated Ascites Findings described on abd/pelvis CT SBP prophylaxis Cipro 400 mg IVPB q 12 h Flagyl 500 mg IV q 8 h Afebrile on admission, vitals stable, continue to monitor IR consulted, ascites not sufficient accumulation for paracentesis GI, Dr. Alarcon, consulted, recs appreciated Start lasix 40 daily, aldactone 50 BID Steroids not indicated at this time EtOH abuse Banana bag Last EtOH intake by pt 8 days ago, past withdrawal time frame, continue to monitor Vit B12>1000 Folate: 17.5 Enteritis vs. ileus vs. partial small bowel obstruction General Surgery consulted, recs appreciated No immediate surgical intervention planned, stable from surgery stand point, will sign off recommend follow up at tertiary center for transplant evaluation Diarrhea-improvng Follow up stool cx, stool ova and parasites Continue to monitor Questionable coffee ground emesis Hgb stable Type and cross Transfusion consent signed by pt GI consult Prophylaxis Protonix 40mg IVP q 12 h SCDs Nicotine patch <Amelia Azar V - Last Filed: 11/30/17 16:15> Objective - Vital Signs/Intake and Output Vital Signs (last 24 hours): Temp Pulse Resp BP Pulse Ox 99.3 F 62 20 118/70 96 11/30/17 07:33 11/30/17 07:33 11/30/17 07:33 11/30/17 10:46 11/30/17 07:33 Intake and Output: 11/30/17 11/30/17 06:59 18:59 Intake Total 550 1280 Output Total 500 753 Balance 50 527 - Medications Medications: Current Medications Furosemide (Lasix) 40 mg PO DAILY [facility] Last Admin: 11/30/17 10:46 Dose: 40 mg Ciprofloxacin (Cipro 400mg/200ml Dsw) 400 mg in 200 mls @ 133 mls/hr IVPB Q12H PASTOR; Protocol Last Admin: 11/30/17 04:37 Dose: 133 mls/hr Metronidazole (Flagyl) 500 mg in 100 mls @ 100 mls/hr IVPB Q8H PASTOR; Protocol Last Admin: 11/30/17 08:53 Dose: 100 mls/hr Folic Acid 1 mg/ Thiamine HCl 100 mg/ Multivitamins/Vitamin C 10 ml/ Dextrose 1,011.2 mls @ 75 mls/hr IV Q24H PASTOR Last Admin: 11/30/17 14:42 Dose: 75 mls/hr Nicotine (Nicoderm Cq) 1 patch TD DAILY [facility] Last Admin: 11/30/17 10:47 Dose: Not Given Pantoprazole Sodium (Protonix Inj) 40 mg IVP Q12H PASTOR Last Admin: 11/30/17 04:38 Dose: 40 mg Pneumococcal Polyvalent Vaccine (Pneumovax 23 Vaccine) 0.5 ml IM .ONCE ONE Stop: 12/01/17 10:01 Spironolactone (Aldactone) 50 mg PO BID [facility] Last Admin: 11/30/17 11:23 Dose: 50 mg - Labs Labs: 11/30/17 11:52 11/30/17 11:52 PT 16.0 SECONDS (9.7-12.2) H 11/29/17 05:43 INR 1.5 11/29/17 05:43 APTT 38 SECONDS (21-34) H 11/28/17 18:10 Attending/Attestation - Attestation I have personally seen and examined this patient.: Yes I have fully participated in the care of the patient.: Yes I have reviewed all pertinent clinical information, including history, physical exam and plan: Yes Notes (Text): This is a late computer entry for 11/29/2017. Please note delay in commuter no secondary to EMR issues. This is a 47-year-old male past medical history significant for alcohol abuse, former smoker who came to the emergency room following diarrhea for 4 days, jaundice which she noticed about 4 days ago with associated pruritus and questionable coffee ground emesis which she reports throat which was dark in color. Patient noted for almost 2 weeks he's been chronically drinking alcohol about 10-12 beers a day and has not been eating as well reports the alcohol helps to suppress his appetite. He also reports the change of stool reporting diarrhea no blood for the past 4 days as well. Patient does not know why he drin ks so much every day by did indicate to him that does take a toll on the body specifically liver as well as he is a former smoker quit about 20 years ago but did smoke sparingly. Patient has not seen a GI before nor confirmed liver cirrhosis. Patient was original scheduled for paracentesis however per IR there is nothing to drain. Per GI no further intervention needed. Commended for Lasix and Aldactone alcohol cessation. Assessment/plan #1. Obstructive jaundice Ascites Suspected alcohol liver disease/cirrhosis Transaminitis Assessment/plan * GI board help appreciated * No intervention * Command for Lasix and Aldactone * Refer to [facility] for gi clinic * Patient will need sobriety for at least 2-3 years prior to consideration for liver transplant * Gen. surgery on board help appreciated * No intervention * CT abdomen pelvis (11/28): Mild dilatation of fluid-filled mid small bowel loops in the right abdomen and nonspecific could be related to enteritis, a lady ileus or developments partial small bowel structures. Moderate hepatosplenomegaly and fatty liver. Nodular contour of the liver could represent cirrhosis. The bladder is distended i gallstones and mild gallb ladder wall thickening. Moderate splenomegaly. * Abdominal ultrasound (11/28): Moderate hepatosplenomegaly. Diffuse increased echogenicity in the liver may reflect hepatic steatosis. Thick gallbladder w all and mild pericholecystic fluid nonspecific and there is a suspect 4 mm gallbladder polyp along the anterior wall. No cholelithiasis or biliary dilatation. * We'll keep nothing by mouth * Spoke with nurse Lorin Jhaveri spoken with IR and there is nothing to drain. We'll start diet for patient. * Discussed with GI, no planned intervention. Recommends for Lasix, Aldactone alcohol cessation. * We will discontinue ciprofloxacin since there is no ascites to be drained. * Noted elevated bilirubin, direct bilirubin elevated, GGT elevated * Hepatitis serology negative * Patient counseled that he will need to stop his alcohol use * Child [place]ara class B evaluation indication for transplant evaluation. Abdominal surgery preoperative mortality 30% * Meld score 21 points 19.6% estimated 3 month mortality * Discriminant Function: 25.4 points-->good prognosis (does not need to start steroids) #2. Diarrhea Assessment/plan * Suspected secondary to either alcohol and/or liver * No episodes noted today * Stool ova and parasite, stool culture ordered #3. Questionable enteritis versus ileus versus small bowel Assessment/plan * Given the CT abdomen and pelvis findings #4. Emesis Assessment/plan * Hemoglobin noted to be 13 we have repeated it remains at 14 * Patient started on Protonix 40 mg IV every 12 * No intervention by GI Intervention * Hemoglobin stable * No further episodes noted #5. Alcohol abuse Assessment/plan * Patient provided banana bag * Folate low * Total high * Seizure precautions * Patient will need social work manager consult to get him connected to Alcoholics Anonymous to promote sobriety #6. Prophylactic measure * Chemical anticoagulation contraindicated in light of paracentesis * Protonic 40 mg IV every 12 * Seizure Precautions * Nothing by mouth * Blood transfusion consent obtained by resident and will have 2 units of PRBC if needed
--- NOTE | 2017-11-29 23:09 | CP.PCM.PN ---
Subjective - Date & Time of Evaluation Date of Evaluation: 11/29/17 Time of Evaluation: 06:50 - Subjective Subjective: Gen Surg: Dr Pemberton Pt S&E. NAEO. Denies any complaints. Tolerating diet. Denies pain, n/v, f/c. Objective - Vital Signs/Intake and Output Vital Signs (last 24 hours): Temp Pulse Resp BP Pulse Ox 98.9 F 66 20 110/65 96 11/29/17 16:00 11/29/17 16:00 11/29/17 16:00 11/29/17 16:00 11/29/17 16:00 Intake and Output: 11/29/17 11/30/17 18:59 06:59 Intake Total 600 Balance 600 - Medications Medications: Current Medications Furosemide (Lasix) 40 mg PO DAILY PASTOR Ciprofloxacin (Cipro 400mg/200ml Dsw) 400 mg in 200 mls @ 133 mls/hr IVPB Q12H PASTOR; Protocol Last Admin: 11/29/17 17:59 Dose: 133 mls/hr Metronidazole (Flagyl) 500 mg in 100 mls @ 100 mls/hr IVPB Q8H PASTOR; Protocol Last Admin: 11/29/17 17:57 Dose: 100 mls/hr Folic Acid 1 mg/ Thiamine HCl 100 mg/ Multivitamins/Vitamin C 10 ml/ Dextrose 1,011.2 mls @ 75 mls/hr IV Q24H PASTOR Last Admin: 11/29/17 15:57 Dose: 75 mls/hr Nicotine (Nicoderm Cq) 1 patch TD DAILY PASTOR Pantoprazole Sodium (Protonix Inj) 40 mg IVP Q12H PASTOR Last Admin: 11/29/17 18:00 Dose: 40 mg Pneumococcal Polyvalent Vaccine (Pneumovax 23 Vaccine) 0.5 ml IM .ONCE ONE Stop: 12/01/17 10:01 Spironolactone (Aldactone) 50 mg PO BID PASTOR Last Admin: 11/29/17 22:06 Dose: 50 mg - Labs Labs: 11/29/17 05:43 11/29/17 05:43 PT 16.0 SECONDS (9.7-12.2) H 11/29/17 05:43 INR 1.5 11/29/17 05:43 APTT 38 SECONDS (21-34) H 09/24/18 18:10 - Constitutional Appears: Non-toxic, No Acute Distress - Eye Exam Eye Exam: Normal appearance, Scleral icterus - Respiratory Exam Respiratory Exam: absent: Accessory Muscle Use, Respiratory Distress - Cardiovascular Exam Cardiovascular Exam: REGULAR RHYTHM. absent: Tachycardia - GI/Abdominal Exam GI & Abdominal Exam: Distended, Soft. absent: Tenderness - Neurological Exam Neurological Exam: Alert, Awake Assessment and Plan - Assessment and Plan (Free Text) Assessment: 47M with Matt Ohara B Cirrhosis Plan: No immediate surgical intervention planned tolerating diet, clear for d.c from general surgery pt should follow up at tertiary center for transplant evaluation please reconsult as necessary d/w Dr Nilay Negro, PGY4
[2017-11-30] MEDS: metroNIDAZOLE IV 500 mg/100 ml 500 MG/100 ML BAG IVPB SCH ×3 (00:40→17:24)
[2017-11-30] MEDS: Ciprofloxacin 400mg/200ml D5W 400 MG/200 ML BAG IVPB SCH ×2 (04:37→17:24)
[2017-11-30 11:57] LABS: BASO # 0.1 K/uL (0.0-0.2); BASO % 0.7 % (0.0-2.0); EOS # 0.1 K/uL (0.0-0.7); EOS % 1.3 % (0.0-4.0); HEMOGLOBIN 13.1 g/dL (12.0-18.0); LYMPH # 1.2 K/uL (1.0-4.3); LYMPH % 12.3 % (20.0-40.0); MEAN CELL VOLUME 102.8 fL (80.0-94.0); MEAN CORPUSCULAR HEMOGLOBIN 35.7 pg (27.0-31.0); MEAN CORPUSCULAR HGB CONC 34.7 g/dL (33.0-37.0); MONO # 0.9 K/uL (0.0-0.8); MONO % 8.7 % (0.0-10.0); NEUT # 7.7 K/uL (1.8-7.0); RBC 3.66 Mil/uL (4.40-5.90); RED CELL DISTRIBUTION WIDTH 15.9 % (11.5-14.5)
[2017-11-30 12:24] LABS: BLOOD UREA NITROGEN 9 mg/dL (9-20); GFR NON-AFRICAN AMERICAN > 60
[2017-11-30 12:25] LABS: ALB/GLOB RATIO 0.8 (1.0-2.1); ALBUMIN 3.1 g/dL (3.5-5.0); ALT/SGPT 65 U/L (21-72); AST/SGOT 83 U/L (17-59); CALCIUM 8.6 mg/dl (8.6-10.4)
[2017-11-30] MEDS: Folic Acid 1 MG, Thiamine 100 MG, Multivitamin (MVI) 10 ML in Dextrose 5% In Water 1,00... IV SCH (14:42)
[2017-11-30] MEDS ORDERED: Pneumococcal 23-Valent Vaccine IM ONE (18:15)
[2017-11-30 18:25] VITALS: BP 116/69; PULSE 78; TEMP 98.9; O2SAT 98
--- NOTE | 2017-11-30 21:30 | CP.PCM.DIS ---
Provider - Provider Date of Admission: 11/28/17 14:36 Attending physician: Lenny Novak MD Primary care physician: None Consults: GI - Dr. Alarcon General Surgery - Dr. Pemberton IR Hunter Alvarado Time Spent in preparation of Discharge (in minutes): 45 Diagnosis - Discharge Diagnosis (1) Abdominal pain Status: Acute (2) Alcohol abuse Status: Chronic (3) Cirrhosis Status: Acute (4) Hyperbilirubinemia Status: Acute Hospital Course - Lab Results Lab Results: Micro Results 11/28/17 07:03 Rectum Ova and Parasite Concentrate Exam - Final 11/28/17 10:17 Urine Urine Culture - Final No Growth (<1,000 CFU/ML) Most Recent Lab Values WBC 10.0 K/uL (4.8-10.8) 11/30/17 11:52 RBC 3.66 Mil/uL (4.40-5.90) L 11/30/17 11:52 Hgb 13.1 g/dL (12.0-18.0) 11/30/17 11:52 Hct 37.6 % (35.0-51.0) 11/30/17 11:52 MCV 102.8 fL (80.0-94.0) H 11/30/17 11:52 MCH 35.7 pg (27.0-31.0) H 11/30/17 11:52 MCHC 34.7 g/dL (33.0-37.0) 11/30/17 11:52 RDW 15.9 % (11.5-14.5) H 11/30/17 11:52 Plt Count 164 K/uL (130-400) 11/30/17 11:52 MPV 10.0 fL (7.2-11.7) 11/30/17 11:52 Neut % (Auto) 77.0 % (50.0-75.0) H 11/30/17 11:52 Lymph % (Auto) 12.3 % (20.0-40.0) L 11/30/17 11:52 [place] % (Auto) 8.7 % (0.0-10.0) 11/30/17 11:52 Eos % (Auto) 1.3 % (0.0-4.0) 11/30/17 11:52 Baso % (Auto) 0.7 % (0.0-2.0) 11/30/17 11:52 Neut # (Auto) 7.7 K/uL (1.8-7.0) H 11/30/17 11:52 Lymph # (Auto) 1.2 K/uL (1.0-4.3) 11/30/17 11:52 [place] # (Auto) 0.9 K/uL (0.0-0.8) H 11/30/17 11:52 Eos # (Auto) 0.1 K/uL (0.0-0.7) 11/30/17 11:52 Baso # (Auto) 0.1 K/uL (0.0-0.2) 11/30/17 11:52 PT 16.0 SECONDS (9.7-12.2) H 11/29/17 05:43 INR 1.5 11/29/17 05:43 APTT 38 SECONDS (21-34) H 11/28/17 18:10 Sodium 135 mmol/L (132-148) 11/30/17 11:52 Potassium 3.8 mmol/L (3.6-5.2) 11/30/17 11:52 Chloride 104 mmol/L (98-107) 11/30/17 11:52 Carbon Dioxide 24 mmol/L (22-30) 11/30/17 11:52 Anion Gap 12 (10-20) 11/30/17 11:52 BUN 9 mg/dL (9-20) 11/30/17 11:52 Creatinine 0.5 mg/dL (0.8-1.5) L 11/30/17 11:52 Est GFR ( Amer) > 60 11/30/17 11:52 Est GFR (Non-Af Amer) > 60 11/30/17 11:52 Random Glucose 87 mg/dL (75-110) 11/30/17 11:52 Calcium 8.6 mg/dl (8.6-10.4) 11/30/17 11:52 Phosphorus 3.3 mg/dL (2.5-4.5) 11/29/17 05:43 Magnesium 2.1 mg/dL (1.6-2.3) 11/29/17 05:43 Total Bilirubin 14.3 mg/dL (0.2-1.3) H 11/30/17 11:52 Direct Bilirubin 12.1 mg/dL (0.0-0.4) H 11/28/17 18:10 GGT 270 U/L (8-78) H 11/28/17 18:10 AST 83 U/L (17-59) H 11/30/17 11:52 ALT 65 U/L (21-72) 11/30/17 11:52 Alkaline Phosphatase 236 U/L (38-126) H 11/30/17 11:52 Ammonia 15 umol/L (9-33) 11/28/17 20:27 Total Protein 7.2 g/dL (6.3-8.3) 11/30/17 11:52 Albumin 3.1 g/dL (3.5-5.0) L 11/30/17 11:52 Globulin 4.0 gm/dL (2.2-3.9) H 11/30/17 11:52 Albumin/Globulin Ratio 0.8 (1.0-2.1) L 11/30/17 11:52 Amylase 60 U/L (30-110) 11/28/17 10:17 Lipase 201 U/L (23-300) 11/28/17 18:10 Alpha Fetoprotein 6.0 ng/mL (0.0-7.5) 11/28/17 20:27 Vitamin B12 > 1000 pg/mL (239-931) H 11/29/17 05:43 Folate 17.5 ng/mL 11/29/17 05:43 Urine Color Tamika (YELLOW) 11/28/17 10:17 Urine Clarity Clear (Clear) 11/28/17 10:17 Urine pH 6.0 (5.0-8.0) 11/28/17 10:17 Ur Specific [place] 1.016 (1.003-1.030) 11/28/17 10:17 Urine Protein Negative mg/dL (NEGATIVE) 11/28/17 10:17 Urine Glucose (UA) Normal mg/dL (Normal) 11/28/17 10:17 Urine Ketones Negative mg/dL (NEGATIVE) 11/28/17 10:17 Urine Blood Negative (NEGATIVE) 11/28/17 10:17 Urine Nitrate Negative (NEGATIVE) 11/28/17 10:17 Urine Bilirubin 2+ (NEGATIVE) H 11/28/17 10:17 Urine Urobilinogen 4.0 mg/dL (0.2-1.0) 11/28/17 10:17 Ur Leukocyte Esterase Neg Abigail/uL (Negative) 11/28/17 10:17 Urine WBC (Auto) 1 /hpf (0-5) 11/28/17 10:17 Urine RBC (Auto) 2 /hpf (0-3) 11/28/17 10:17 Urine Bacteria Rare (<OCC) 11/28/17 10:17 Urine Opiates Screen Negative (NEGATIVE) 11/28/17 10:17 Urine Methadone Screen Negative (NEGATIVE) 11/28/17 10:17 Ur Barbiturates Screen Negative (NEGATIVE) 11/28/17 10:17 Ur Phencyclidine Scrn Negative (NEGATIVE) 11/28/17 10:17 Ur Amphetamines Screen Negative (NEGATIVE) 11/28/17 10:17 U Benzodiazepines Scrn Negative (NEGATIVE) 11/28/17 10:17 U Oth Cocaine Metabols Negative (NEGATIVE) 11/28/17 10:17 U Cannabinoids Screen Negative (NEGATIVE) 11/28/17 10:17 Alcohol, Quantitative < 10 mg/dl (0-10) 11/28/17 10:17 Hepatitis A IgM Ab Negative (NEGATIVE) 11/28/17 10:17 Hep Bs Antigen Negative (NEGATIVE) 11/28/17 10:17 Hep B Core IgM Ab Negative (NEGATIVE) 11/28/17 10:17 Hepatitis C Antibody Negative (NEGATIVE) 11/28/17 10:17 HIV 1&2 Ag/Ab, 4th Gen Nonreactive (Nonreactive) 11/28/17 18:10 Blood Type O POSITIVE 11/28/17 18:10 Antibody Screen Negative 11/28/17 18:10 - Hospital Course Hospital Course: Medicine Discharge Summary for Hospitalist Service Darvin Montalvo DO PGY-1, Medication Assistant This is a 47 y o male PMHx EtOH abuse who presented on 11/28/17 c/o 4 day history of vomiting and watery diarrhea. Pt admitted to coffee-ground emesis 4x/day for the prior 4 days unchanged with eating or drinking fluids. The watery diarrhea was after every meal, denied blood or changes in color of stool. Pt also admitted to associated abd pain in the mid-lower abd, that radiated laterally but not to his back. Admitted at the time that the pain worsened with eating any food at home. Denied trying new foods or recent changes in diet. Stated the pain was 9/10 on the morning of admission at 7:00 am after drinking juice and water at home, and thus decided to come to the ED. Pt did not c/o pain in the ED, stated it was a 0/10, did not require pain medications in the ED. Pt also admitted to associated fatigue/tiredness and generalized weakness, was able to walk without concerns, but was feeling heaviness in his legs b/l 2/2 to the fatigue. Denied hx of sick contacts, recent anbx use, or recent travel. Denied fevers, chills, headache, chest pain, shortness of breath, nausea, constipation, urinary complaints, or other symptoms. Pt was found to have hyperbilirubinemia of 12.1, AST 91, ALT 65, ALP 290. Concern was for hepatitis 2/2 EtOH abuse. Abd/pelvis CT on admission demonstrated mild dilatation of fluid-filled mid s mall bowel loops in R mid abdomen, non-specific, could be related to non- specific enteritis, ileus, or developing partial SBO; moderate hepatosplenomegaly and fatty liver, nodular contour of liver could represent cirrhosis. Abd U/s demonstrated moderate hepatosplenomegaly, diffuse increased echogenicity in liver that may reflect hepatic steatosis however parenchymal infectious etiologies could not be entirely excluded, thick GB wall and mild pericholecystic fluid nonspecific, 4 mm GB polyp along anterior wall, with no cholelithiasis or biliary dilatation. GI (Dr. Alarcon) and General Surgery (Dr. Pemberton) were consulted. General Surgery monitored the patient and recommended the patient follow-up with a [facility] for further treatment/management for possible liver transplant. GI recommended additional lab work-up including alpha fetaprotein and ammonia levels, which were both negative on work-up. Hepatitis panel was negative, amylase/lipase wnl, HIV test negative. Consult for possible paracentesis was done with IR (Dr. Alvarado), who did not recommend drainage of fluid in abd during admission. Pt was treated for possible spontaneous bacterial peritonitis with Cipro/Flagyl, and was instructed on discharge to complete antibiotics for total course of 7 days. Lasix and Spironolactone were started inpatient for cirrhosis management, and patient was also discharged on these scripts. Pt also was discharged on MVT, folate and thiamine due to hx EtOH abuse. Pt was educated about importance of EtOH cessation especially with improving his clinical symptoms, and states that he will stop using alcohol on discharge from the hospital. Pt was instructed to follow-up at [facility] (Dr. Pond) to establish primary care and receive referral for GI/Hepatobiliary specialist for further management and chronic care. Pt was discharged to home in stable condition on 11/30/17. Discharge Exam - Head Exam Head Exam: ATRAUMATIC, NORMOCEPHALIC - Eye Exam Eye Exam: PERRL, Scleral icterus - ENT Exam ENT Exam: Mucous Membranes Moist - Respiratory Exam Respiratory Exam: Clear to PA & Lateral, NORMAL BREATHING PATTERN, UNREMARKABLE - Cardiovascular Exam Cardiovascular Exam: REGULAR RHYTHM, +S1, +S2. absent: Diastolic murmur, Gallop, Rubs, Systolic Murmur - GI/Abdominal Exam GI & Abdominal Exam: Distended, Normal Bowel Sounds, Soft. absent: Guarding, Rebound, Rigid, Tenderness - Extremities Exam Extremities exam: full ROM, normal capillary refill, normal inspection, pedal pulses present - Neurological Exam Neurological exam: Alert, CN II-XII Intact, Normal Gait, Oriented x3 - Psychiatric Exam Psychiatric exam: Normal Affect, Normal Mood - Skin Skin Exam: Dry, Intact, Warm Discharge Plan - Discharge Medications Prescriptions: Ciprofloxacin 500 mg PO BID #10 brad.[facility]rec Folic Acid 1 mg PO DAILY #30 tab Furosemide [Lasix] 40 mg PO DAILY #30 tab Metronidazole [Flagyl] 500 mg PO TID #15 tablet Multivitamin [Daily Vitamin Formula] 1 each PO DAILY #30 tablet Spironolactone [Aldactone] 50 mg PO BID #60 tab Thiamine [Vitamin B1 Tab] 50 mg PO DAILY #30 tab - Follow Up Plan Condition: STABLE Disposition: HOME/ ROUTINE Instructions: Cirrhosis (DC), Alcohol Abuse and Alcoholism (DC), Effects of Alcohol on Your Health Additional Instructions: Patient medically stable for discharge. Please follow-up with [facility] for discharge follow-up, make appt to be seen within 1 week of discharge to get referral for [facility] at [facility]. Please abstain from using alcohol, especially while taking antibiotics. Please take new medications as prescribed: Thiamine, Folate, Multivitamin, Lasix, Aldactone. Please take antibiotics Ciprofloxacin and Flagyl as prescribed for the next 5 days. Should symptoms recur or worsen, please report to your nearest emergency department. Referrals: Caro Pond MD [Staff Provider] -
[2017-12-01] MEDS ORDERED: Pneumococcal 23-Valent Vaccine IM ONE (10:00)
== END 2017-11-30 19:37 | disposition home or self-care (01) | DRG 202 ==
LOC: C.ER 08:57 → C.9E 14:36 → C.3T 21:27
PROVIDERS: ADMIT Internal Medicine; ATTEND Internal Medicine
DX: K70.31 Alcoholic cirrhosis of liver with ascites (principal); F10.288 Alcohol dependence with other alcohol-induced disorder; K52.9 Noninfective gastroenteritis and colitis, unspecified; I10 Essential (primary) hypertension; Z88.0 Allergy status to penicillin; Z87.891 Personal history of nicotine dependence; K76.0 Fatty (change of) liver, not elsewhere classified; Y90.0 Blood alcohol level of less than 20 mg/100 ml

== ENCOUNTER 2017-12-27 11:15 | Observation (INO) | payer MEDICAID, OTHER ==
[2017-12-27 11:57] LABS: BASO # 0.1 K/uL (0.0-0.2); BASO % 0.8 % (0.0-2.0); EOS # 0.2 K/uL (0.0-0.7); EOS % 1.3 % (0.0-4.0); HEMOGLOBIN 11.8 g/dL (12.0-18.0); LYMPH # 1.1 K/uL (1.0-4.3); LYMPH % 8.6 % (20.0-40.0); MEAN CORPUSCULAR HEMOGLOBIN 37.2 pg (27.0-31.0); MEAN CORPUSCULAR HGB CONC 35.4 g/dL (33.0-37.0); MEAN PLATELET VOLUME 9.4 fL (7.2-11.7); MONO # 0.8 K/uL (0.0-0.8); MONO % 5.9 % (0.0-10.0); NEUT # 10.7 K/uL (1.8-7.0); NEUT % 83.4 % (50.0-75.0); RBC 3.18 Mil/uL (4.40-5.90); RED CELL DISTRIBUTION WIDTH 16.6 % (11.5-14.5); WHITE BLOOD COUNT 12.9 K/uL (4.8-10.8)
[2017-12-27 11:58] LABS: SQUAMOUS EPITHIAL < 1 /hpf (0-5); URINE BILIRUBIN 2+ (NEGATIVE); URINE BLOOD NEGATIVE (NEGATIVE); URINE CLARITY Hazy (Clear); URINE COLOR Amber (YELLOW); URINE GLUCOSE (UA) NORMAL (Normal); URINE LEUKOCYTE ESTERASE NEG Leu/uL (Negative); URINE PROTEIN NEGATIVE (NEGATIVE)
[2017-12-27 12:00] LABS: MEAN CELL VOLUME 105.2 fL (80.0-94.0); PLATELET COUNT 114 K/uL (130-400)
[2017-12-27 12:09] LABS: ALB/GLOB RATIO 0.7 (1.0-2.1); ALBUMIN 3.1 g/dL (3.5-5.0); ALT/SGPT 106 U/L (21-72); AST/SGOT 140 U/L (17-59); BLOOD UREA NITROGEN 9 mg/dL (9-20); CALCIUM 8.5 mg/dl (8.6-10.4); GFR NON-AFRICAN AMERICAN > 60; LIPASE 221 U/L (23-300)
[2017-12-27 12:35] LABS: INR 1.7
--- NOTE | 2017-12-27 12:37 | C.PDOC ---
History Of Present Illness 47 y/o male with a PMHx of alcoholic cirrhosis, presents to the ED complaining of abdominal pain and bloating for 1 week. He also admits to yellowing of the skin and eyes, stating it has been going on for over a month since his last admission. Denies any associated nausea, vomiting, diarrhea, SOB, or chest pain. Patient states he had a normal bowel movement this morning. Reports he has not been drinking for the past 2 months. 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) History/Exam Limitations: no limitations Onset/Duration Of Symptoms: Days Current Symptoms Are (Timing): Still Present Past Medical History Reviewed: Historical Data, Nursing Documentation, Vital Signs Vital Signs: Last Vital Signs Temp 98.9 F 12/27/17 11:30 Pulse 88 12/27/17 11:30 Resp 17 12/27/17 11:30 BP 132/77 12/27/17 11:30 Pulse Ox 98 12/27/17 11:30 - Medical History PMH: HTN Other PMH: Alcoholic cirrhosis Family History: States: No Known Family Hx - Social History Hx Tobacco Use: No Hx Alcohol Use: Yes Hx Substance Use: No - Immunization History Hx Tetanus Toxoid Vaccination: No Hx Influenza Vaccination: No Hx Pneumococcal Vaccination: No Review Of Systems Except As Marked, All Systems Reviewed And Found Negative. Constitutional: Negative for: Fever, Sweats Cardiovascular: Negative for: Chest Pain Respiratory: Negative for: Shortness of Breath Gastrointestinal: Positive for: Abdominal Pain, Other (Bloating). Negative for: Nausea, Vomiting, Diarrhea Skin: Positive for: Jaundice Physical Exam - Physical Exam Appears: Non-toxic, No Acute Distress Skin: Warm, Dry, Jaundice Head: Atraumatic, Normacephalic Eye(s): bilateral: PERRL, EOMI, Scleral Icterus Nose: Normal Oral Mucosa: Moist Chest: Symmetrical Cardiovascular: Rhythm Regular, No Murmur Respiratory: No Rales, No Rhonchi, No Wheezing, Other (Lungs clear to auscultation) Gastrointestinal/Abdominal: No Tenderness, Organomegaly (+ Hepatosplenomegaly), Distention, No Guarding Back: No CVA Tenderness, No Vertebral Tenderness Extremity: Bilateral: Atraumatic, Normal Color And Temperature, Normal ROM Neurological/Psych: Oriented x3, Normal Speech ED Course And Treatment - Laboratory Results Result Diagrams: 12/27/17 11:50 12/27/17 11:50 O2 Sat by Pulse Oximetry: 98 (RA) Pulse Ox Interpretation: Normal Progress Note: Blood work and urine sent to the lab. X-ray obstructive series taken. Discussed findings with patient, all questions answered. - Physician Consult Information Time Consulting Physician Contacted: 12:40 Physician Contacted: Bernadine Richards Outcome Of Conversation: Discussed case with Dr. Richards, who agrees upon plan for admission Disposition - Disposition Disposition: HOSPITALIZED Disposition Time: 12:41 - PA / CNC MANAGER / Resident Statement MD/DO has reviewed & agrees with the documentation as recorded. - Scribe Statement The provider has reviewed the documentation as recorded by the Scribe (Noni Dhillon) All medical record entries made by the Scribe were at my direction and personally dictated by me. I have reviewed the chart and agree that the record accurately reflects my personal performance of the history, physical exam, m edical decision making, and the department course for this patient. I have also personally directed, reviewed, and agree with the discharge instructions and disposition.
[2017-12-27 12:38] LABS: HEPATITIS B SURFACE AG Negative (NEGATIVE)
[2017-12-27 12:44] LABS: HEPATITIS A IGM NEGATIVE (NEGATIVE); HEPATITIS B CORE AB NEGATIVE (NEGATIVE)
[2017-12-27 12:56] LABS: HEPATITIS C ANTIBODY NEGATIVE (NEGATIVE)
[2017-12-27 13:23] LABS: ANISOCYTOSIS SLIGHT; BANDS 9 % (0-2); EOSINOPHIL 2 % (0-4); LYMPHOCYTE 8 % (20-40); MONOCYTE 4 % (0-10); NEUTROPHIL 77 % (50-75); PLATELET ESTIMATE SLIGHTLY DECREASED (NORMAL); TOTAL CELLS COUNTED 100
--- NOTE | 2017-12-27 13:23 | RAD ---
Date of service: 12/27/2017 PROCEDURE: Radiographs of the chest and abdomen (obstructive series) HISTORY: Abd Pain COMPARISON: No prior. TECHNIQUE: AP radiograph of the chest, with upright and supine radiographs of the abdomen. FINDINGS: CHEST: Lungs: Clear. Cardiovascular: Normal size heart. No pulmonary vascular congestion. Pleura: No pleural fluid. No pneumothorax. Other findings: None. ABDOMEN AND PELVIS: Bowel: Paucity of colonic gas. Moderate stool left and right colon right colon more than left Nonspecific nondilated small bowel gas present. No evidence of mechanical obstruction. Free air: None. Bones: Prominent thoraco lumbar spondylosis Other findings: Probable old osseous avulsion adjacent to lateral iliac crest IMPRESSION: No bowel obstruction suggested this time. No free air appreciated. Nonspecific bowel gas pattern. Moderate colonic stool retention suggested. Continued is clinical surveillance recommended. No pulmonary infiltrates Other findings as above.
--- NOTE | 2017-12-27 13:31 | CP.PCM.HP ---
<Brian Aguilar - Last Filed: 12/27/17 16:17> History of Present Illness - History of Present Illness History of Present Illness: Hospitalist Note CC: My stomach is big and my eyes are yellow help me HPI: 47yo m with a PMHx of etoh abuse and a recent hospitalization at [facility] (nov 2017) presents to the ED with a 1 month history of scleral icterus and a 1 week hx of abdominal distension. Pt denies any associated pains with the distension but states he feels a constant fullness and occasional get reflux like symptoms after eating. Pt denies any blood in his sputum and denies ever vomiting. Pt states that he has been compliant with his discharge medications for this past month however he did not follow up in clinic with Dr Pond. 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 Dorian Foote Sx - Dr. Pemberton IR - Dr. Alvarado Home meds: Ciprofloxacin 500 mg PO BID #10 [facility]..rec Folic Acid 1 mg PO DAILY #30 tab Furosemide [Lasix] 40 mg PO DAILY #30 tab Metronidazole [Flagyl] 500 mg PO TID #15 tablet Multivitamin [Daily Vitamin Formula] 1 each PO DAILY #30 tablet Spironolactone [Aldactone] 50 mg PO BID #60 tab Thiamine [Vitamin B1 Tab] 50 mg PO DAILY #30 tab Present on Admission - Present on Admission Any Indicators Present on Admission: No Review of Systems - Constitutional Constitutional: absent: Night Sweats, Weight Gain, Weight Loss, Weakness - EENT Eyes: absent: Change in Vision Ears: absent: Dizziness Nose/Mouth/Throat: absent: Dysphagia, Sore Throat, Neck Pain - Cardiovascular Cardiovascular: absent: Chest Pain, Pain Radiating to Arm/Neck/Jaw, Lightheadedness, Pedal Edema, Radiating Pain, Syncope - Respiratory Respiratory: absent: Cough - Gastrointestinal Gastrointestinal: absent: Coffee Ground Emesis, Hematochezia, Loose Stools, Melena - Genitourinary Genitourinary: absent: Difficulty Urinating, Hematuria - Musculoskeletal Musculoskeletal: absent: Back Pain, Myalgias - Integumentary Integumentary: Jaundice Additional comments: rosacea on nose and maxilla - Neurological Neurological: absent: Confusion, Dizziness, Focal Weakness, Syncope, Tremor - Psychiatric Psychiatric: absent: Memory Loss Past Patient History - Past Medical History & Family History Past Medical History?: No - Past Social History Smoking Status: Former Smoker - CARDIAC Hx Hypertension: Yes - MUSCULOSKELETAL/RHEUMATOLOGICAL Hx Falls: No - PSYCHIATRIC Hx Substance Use: No - SURGICAL HISTORY Hx Surgeries: No - ANESTHESIA Hx Anesthesia: No Meds Allergies/Adverse Reactions: Allergies Allergy/AdvReac Type Severity Reaction Status Date / Time Penicillins Allergy RASH Verified 12/27/17 11:34 Physical Exam - Additional Findings Additional findings: Appears: Non-toxic, No Acute Distress Skin: Warm, Dry, Jaundice Head: Atraumatic, Normacephalic Eye(s): bilateral: PERRL, EOMI, Scleral Icterus Nose: Normal Oral Mucosa: Moist Chest: Symmetrical Cardiovascular: Rhythm Regular, No Murmur Respiratory: No Rales, No Rhonchi, No Wheezing, Other (Lungs clear to auscultation) Gastrointestinal/Abdominal: No Tenderness, dull percussion on RUQ. pos fluid sign. Organomegaly (+ Hepatosplenomegaly), Distention, No Guarding Back: No CVA Tenderness, No Vertebral Tenderness Extremity: Bilateral: Atraumatic, Normal Color And Temperature, Normal ROM Neurological/Psych: Oriented x3, Normal Speech Results - Vital Signs Recent Vital Signs: Last Vital Signs Temp 98.9 F 12/27/17 11:30 Pulse 88 12/27/17 11:30 Resp 17 12/27/17 11:30 BP 132/77 12/27/17 11:30 Pulse Ox 98 12/27/17 13:00 - Labs Result Diagrams: 12/27/17 11:50 12/27/17 11:50 Labs: Laboratory Results - last 24 hr 12/27/17 12/27/17 12/27/17 11:50 11:50 11:50 WBC 12.9 H RBC 3.18 L Hgb 11.8 L Hct 33.5 L MCV 105.2 H D MCH 37.2 H MCHC 35.4 RDW 16.6 H Plt Count 114 L D MPV 9.4 Neut % (Auto) 83.4 H Lymph % (Auto) 8.6 L [place] % (Auto) 5.9 Eos % (Auto) 1.3 Baso % (Auto) 0.8 Neut # (Auto) 10.7 H Lymph # (Auto) 1.1 [place] # (Auto) 0.8 Eos # (Auto) 0.2 Baso # (Auto) 0.1 Neutrophils % (Manual) 77 H Band Neutrophils % 9 H Lymphocytes % (Manual) 8 L Monocytes % (Manual) 4 Eosinophils % (Manual) 2 Platelet Estimate Slightly decreased L Anisocytosis (manual) Slight Macrocytosis (manual) Moderate PT INR APTT Sodium 132 Potassium 4.0 Chloride 103 Carbon Dioxide 19 L Anion Gap 14 BUN 9 Creatinine 0.5 L Est GFR ( Amer) > 60 Est GFR (Non-Af Amer) > 60 Random Glucose 115 H Calcium 8.5 L Total Bilirubin 15.7 H AST 140 H D ALT 106 H D Alkaline Phosphatase 387 H D Total Protein 7.5 Albumin 3.1 L Globulin 4.5 H Albumin/Globulin Ratio 0.7 L Lipase 221 Urine Color Tamika Urine Clarity Hazy Urine pH 6.0 Ur Specific [place] 1.025 Urine Protein Negative Urine Glucose (UA) Normal Urine Ketones Negative Urine Blood Negative Urine Nitrate Negative Urine Bilirubin 2+ H Urine Urobilinogen 4.0 Ur Leukocyte Esterase Neg Urine WBC (Auto) 5 Urine RBC (Auto) 2 Ur Squamous Epith Cells < 1 Alcohol, Quantitative < 10 Hepatitis A IgM Ab Hep Bs Antigen Hep B Core IgM Ab Hepatitis C Antibody 12/27/17 12/27/17 11:50 12:19 WBC RBC Hgb Hct MCV MCH MCHC RDW Plt Count MPV Neut % (Auto) Lymph % (Auto) [place] % (Auto) Eos % (Auto) Baso % (Auto) Neut # (Auto) Lymph # (Auto) [place] # (Auto) Eos # (Auto) Baso # (Auto) Neutrophils % (Manual) Band Neutrophils % Lymphocytes % (Manual) Monocytes % (Manual) Eosinophils % (Manual) Platelet Estimate Anisocytosis (manual) Macrocytosis (manual) PT 19.0 H INR 1.7 APTT 36 H Sodium Potassium Chloride Carbon Dioxide Anion Gap BUN Creatinine Est GFR ( Amer) Est GFR (Non-Af Amer) Random Glucose Calcium Total Bilirubin AST ALT Alkaline Phosphatase Total Protein Albumin Globulin Albumin/Globulin Ratio Lipase Urine Color Urine Clarity Urine pH Ur Specific [place] Urine Protein Urine Glucose (UA) Urine Ketones Urine Blood Urine Nitrate Urine Bilirubin Urine Urobilinogen Ur Leukocyte Esterase Urine WBC (Auto) Urine RBC (Auto) Ur Squamous Epith Cells Alcohol, Quantitative Hepatitis A IgM Ab Negative Hep Bs Antigen Negative Hep B Core IgM Ab Negative Hepatitis C Antibody Negative Assessment & Plan - Assessment and Plan (Free Text) Assessment: 47yo M with PMHx of ETOH abuse presents with 1 week of abd distention and 1 month scleral icterus of note recent admission 11/2017 Jaundice Bilirubins elevated no obstruction seen on abd xray series Vit K Alcoholic liver disease/cirrhosis Hepatitis panel negative GI consulted (Dr. Alarcon), recs appreciated Ascites Findings described on abd/pelvis CT IR consulted for paracentesis Afebrile on admission, vitals stable, continue to monitor GI, Dr. Alarcon, consulted, f/u recs EtOH abuse Last EtOH intake over 1 mo ago, past withdrawal time frame, continue to monitor case d/w Dr Richards <Bernadine Richards - Last Filed: 12/27/17 16:36> Results - Vital Signs Recent Vital Signs: Last Vital Signs Temp 98.4 F 12/27/17 15:42 Pulse 77 12/27/17 15:42 Resp 18 12/27/17 15:42 BP 130/67 12/27/17 15:42 Pulse Ox 100 12/27/17 15:42 - Labs Result Diagrams: 12/27/17 11:50 12/27/17 11:50 Labs: Laboratory Results - last 24 hr 12/27/17 12/27/17 12/27/17 11:50 11:50 11:50 WBC 12.9 H RBC 3.18 L Hgb 11.8 L Hct 33.5 L MCV 105.2 H D MCH 37.2 H MCHC 35.4 RDW 16.6 H Plt Count 114 L D MPV 9.4 Neut % (Auto) 83.4 H Lymph % (Auto) 8.6 L [place] % (Auto) 5.9 Eos % (Auto) 1.3 Baso % (Auto) 0.8 Neut # (Auto) 10.7 H Lymph # (Auto) 1.1 [place] # (Auto) 0.8 Eos # (Auto) 0.2 Baso # (Auto) 0.1 Neutrophils % (Manual) 77 H Band Neutrophils % 9 H Lymphocytes % (Manual) 8 L Monocytes % (Manual) 4 Eosinophils % (Manual) 2 Platelet Estimate Slightly decreased L Anisocytosis (manual) Slight Macrocytosis (manual) Moderate PT INR APTT Sodium 132 Potassium 4.0 Chloride 103 Carbon Dioxide 19 L Anion Gap 14 BUN 9 Creatinine 0.5 L Est GFR ( Amer) > 60 Est GFR (Non-Af Amer) > 60 Random Glucose 115 H Calcium 8.5 L Total Bilirubin 15.7 H AST 140 H D ALT 106 H D Alkaline Phosphatase 387 H D Total Protein 7.5 Albumin 3.1 L Globulin 4.5 H Albumin/Globulin Ratio 0.7 L Lipase 221 Urine Color Tamika Urine Clarity Hazy Urine pH 6.0 Ur Specific [place] 1.025 Urine Protein Negative Urine Glucose (UA) Normal Urine Ketones Negative Urine Blood Negative Urine Nitrate Negative Urine Bilirubin 2+ H Urine Urobilinogen 4.0 Ur Leukocyte Esterase Neg Urine WBC (Auto) 5 Urine RBC (Auto) 2 Ur Squamous Epith Cells < 1 Alcohol, Quantitative < 10 Hepatitis A IgM Ab Hep Bs Antigen Hep B Core IgM Ab Hepatitis C Antibody 12/27/17 12/27/17 11:50 12:19 WBC RBC Hgb Hct MCV MCH MCHC RDW Plt Count MPV Neut % (Auto) Lymph % (Auto) [place] % (Auto) Eos % (Auto) Baso % (Auto) Neut # (Auto) Lymph # (Auto) [place] # (Auto) Eos # (Auto) Baso # (Auto) Neutrophils % (Manual) Band Neutrophils % Lymphocytes % (Manual) Monocytes % (Manual) Eosinophils % (Manual) Platelet Estimate Anisocytosis (manual) Macrocytosis (manual) PT 19.0 H INR 1.7 APTT 36 H Sodium Potassium Chloride Carbon Dioxide Anion Gap BUN Creatinine Est GFR ( Amer) Est GFR (Non-Af Amer) Random Glucose Calcium Total Bilirubin AST ALT Alkaline Phosphatase Total Protein Albumin Globulin Albumin/Globulin Ratio Lipase Urine Color Urine Clarity Urine pH Ur Specific [place] Urine Protein Urine Glucose (UA) Urine Ketones Urine Blood Urine Nitrate Urine Bilirubin Urine Urobilinogen Ur Leukocyte Esterase Urine WBC (Auto) Urine RBC (Auto) Ur Squamous Epith Cells Alcohol, Quantitative Hepatitis A IgM Ab Negative Hep Bs Antigen Negative Hep B Core IgM Ab Negative Hepatitis C Antibody Negative Attending/Attestation - Attestation I have personally seen and examined this patient.: Yes I have fully participated in the care of the patient.: Yes I have reviewed all pertinent clinical information: Yes Notes (Text): seen and examined by me with the resident Patient has shifting dullness,significant ascites,alcoholic liver cirrhosis Coming in for increasing abdominal distension and jaundice He never followed with [facility] clinic. States that he stop drinking we will ask for paracentesis,INR 1.7. vit K 10mg sc once follow INR,contact IR for paracentesis d/w resident
[2017-12-27] MEDS ORDERED: Phytonadione 10 mg/ml Inj (Adult) SC STA (15:06)
[2017-12-27 18:41] VITALS: RESP 20
--- NOTE | 2017-12-28 05:54 | CP.PCM.PCO ---
Addendum entered and electronically signed by Andrews Malcolm 12/28/17 05:55: House doctor note. Paged by pharmacy for pneumonia vaccine. Informed that patient received one ea rlier this ear in November. Cancelled current pneumonia vaccine. Original Note:
[2017-12-28 07:27] LABS: ALB/GLOB RATIO 0.6 (1.0-2.1); ALBUMIN 2.4 g/dL (3.5-5.0); ALT/SGPT 92 U/L (21-72); AMYLASE 46 U/L (30-110); AST/SGOT 118 U/L (17-59); BLOOD UREA NITROGEN 8 mg/dL (9-20); CALCIUM 8.2 mg/dl (8.6-10.4); GFR NON-AFRICAN AMERICAN > 60; LIPASE 133 U/L (23-300)
[2017-12-28 07:35] LABS: INR 1.6; PROTHROMBIN TIME 17.9 SECONDS (9.7-12.2)
[2017-12-28 08:11] LABS: HEMOGLOBIN 10.5 g/dL (12.0-18.0); MEAN CELL VOLUME 105.7 fL (80.0-94.0); MEAN CORPUSCULAR HEMOGLOBIN 37.7 pg (27.0-31.0); MEAN CORPUSCULAR HGB CONC 35.7 g/dL (33.0-37.0); RBC 2.79 Mil/uL (4.40-5.90); RED CELL DISTRIBUTION WIDTH 16.5 % (11.5-14.5); WHITE BLOOD COUNT 9.4 K/uL (4.8-10.8)
[2017-12-28 08:12] LABS: BASO # 0.1 K/uL (0.0-0.2); BASO % 1.1 % (0.0-2.0); EOS # 0.1 K/uL (0.0-0.7); EOS % 1.5 % (0.0-4.0); LYMPH # 0.9 K/uL (1.0-4.3); LYMPH % 9.6 % (20.0-40.0); MEAN PLATELET VOLUME 9.4 fL (7.2-11.7); MONO # 0.5 K/uL (0.0-0.8); MONO % 5.7 % (0.0-10.0); NEUT # 7.7 K/uL (1.8-7.0); NEUT % 82.1 % (50.0-75.0); NRBC % 0.1 % (0.0-2.0); PLATELET COUNT 91 K/uL (130-400)
[2017-12-28 08:46] LABS: LYMPHOCYTE 7 % (20-40); MONOCYTE 5 % (0-10); MYELOCYTE 1 % (0-0); NEUTROPHIL 87 % (50-75); PLATELET ESTIMATE DECREASED (NORMAL); TOTAL CELLS COUNTED 100
[2017-12-28 08:47] LABS: ANISOCYTOSIS SLIGHT; HYPOCHROMIC SLIGHT; POIKILOCYTOSIS SLIGHT
--- NOTE | 2017-12-28 09:11 | CP.PCM.PN ---
Subjective - Date & Time of Evaluation Date of Evaluation: 12/28/17 Time of Evaluation: 09:11 - Subjective Subjective: Progress Note for Hospitalist service Patient seen and examined at bedside. Patient states that he is feeling well. He denies fevers, chills, chest pain, shortness of breath, abdominal pain, nausea, vomiting, diarrhea, leg swelling or leg pain. He states he has had abdominal distention for a while, but he states his distention has decreased from yesterday. He states he has never had abdominal distention with yellowing of his skin in the past. He denies prior history of Hepatitis. Objective - Vital Signs/Intake and Output Vital Signs (last 24 hours): Temp Pulse Resp BP Pulse Ox 98.9 F 61 20 123/69 98 12/28/17 08:28 12/28/17 08:28 12/28/17 08:28 12/28/17 08:28 12/28/17 08:28 Intake and Output: 12/28/17 12/28/17 06:59 18:59 Intake Total 120 Balance 120 - Medications Medications: Current Medications Folic Acid (Folic Acid) 1 mg PO DAILY [facility] Last Admin: 12/27/17 17:42 Dose: 1 mg Influenza Virus Vaccine (Fluzone Quad [id number]) 60 mcg IM .ONCE ONE Stop: 12/29/17 08:01 Spironolactone (Aldactone) 50 mg PO BID [facility] Last Admin: 12/27/17 21:36 Dose: 50 mg Thiamine HCl (Vitamin B1 Tab) 50 mg PO DAILY [facility] Last Admin: 12/27/17 21:35 Dose: 50 mg - Labs Labs: 12/28/17 07:09 12/28/17 07:09 PT 17.9 SECONDS (9.7-12.2) H 12/28/17 07:09 INR 1.6 12/28/17 07:09 APTT 36 SECONDS (21-34) H 12/28/17 07:09
--- NOTE | 2017-12-28 11:03 | PCM.SURG1 ---
Surgeon's Initial Post Op Note - Surgeon's Notes Surgeon: Driss Alvarado MD Welt Butter Hand: NONE Type of Anesthesia: Local Pre-Operative Diagnosis: Ascites Operative Findings: US showed a small amount of ascites Post-Operative Diagnosis: Ascites Operation Performed: US guided paracentesis Specimen/Specimens Removed: 1.8 liters of yellow fluid Estimated Blood Loss: EBL {In ML}: 0 Blood Products Given: N/A Drains Used: No Drains Post-Op Condition: Good Date of Surgery/Procedure: 12/28/17 Time of Surgery/Procedure: 10:30
[2017-12-28 11:17] LABS: BODY FLUID TYPE PERITONEAL/ASCITES
[2017-12-28 11:44] VITALS: BP 120/70; PULSE 89; TEMP 98.7; O2SAT 95
[2017-12-28 12:28] LABS: BF GROSS APPEARANCE SL CLOUDY (CLEAR); BODY FLUID MONO/MACROPHAGE 14 % (0-0); BODY FLUID TOTAL COUNT 100 (0-0)
--- NOTE | 2017-12-28 14:05 | CP.PCM.DIS ---
Provider - Provider Date of Admission: 12/27/17 12:49 Attending physician: Bernadine Richards MD Primary care physician: none Consults: IR: Dr. Alvarado Time Spent in preparation of Discharge (in minutes): 35 Hospital Course - Lab Results Lab Results: Most Recent Lab Values WBC 9.4 K/uL (4.8-10.8) 12/28/17 07:09 RBC 2.79 Mil/uL (4.40-5.90) L 12/28/17 07:09 Hgb 10.5 g/dL (12.0-18.0) L 12/28/17 07:09 Hct 29.4 % (35.0-51.0) L 12/28/17 07:09 MCV 105.7 fL (80.0-94.0) H 12/28/17 07:09 MCH 37.7 pg (27.0-31.0) H 12/28/17 07:09 MCHC 35.7 g/dL (33.0-37.0) 12/28/17 07:09 RDW 16.5 % (11.5-14.5) H 12/28/17 07:09 Plt Count 91 K/uL (130-400) L D 12/28/17 07:09 MPV 9.4 fL (7.2-11.7) 12/28/17 07:09 Neut % (Auto) 82.1 % (50.0-75.0) H 12/28/17 07:09 Lymph % (Auto) 9.6 % (20.0-40.0) L 12/28/17 07:09 [place] % (Auto) 5.7 % (0.0-10.0) 12/28/17 07:09 Eos % (Auto) 1.5 % (0.0-4.0) 12/28/17 07:09 Baso % (Auto) 1.1 % (0.0-2.0) 12/28/17 07:09 Neut # (Auto) 7.7 K/uL (1.8-7.0) H 12/28/17 07:09 Lymph # (Auto) 0.9 K/uL (1.0-4.3) L 12/28/17 07:09 [place] # (Auto) 0.5 K/uL (0.0-0.8) 12/28/17 07:09 Eos # (Auto) 0.1 K/uL (0.0-0.7) 12/28/17 07:09 Baso # (Auto) 0.1 K/uL (0.0-0.2) 12/28/17 07:09 Neutrophils % (Manual) 87 % (50-75) H 12/28/17 07:09 Band Neutrophils % 9 % (0-2) H 12/27/17 11:50 Lymphocytes % (Manual) 7 % (20-40) L 12/28/17 07:09 Monocytes % (Manual) 5 % (0-10) 12/28/17 07:09 Eosinophils % (Manual) 2 % (0-4) 12/27/17 11:50 Myelocytes % 1 % (0-0) H 12/28/17 07:09 Platelet Estimate Decreased (NORMAL) L 12/28/17 07:09 Hypochromasia (manual) Slight 12/28/17 07:09 Poikilocytosis (manual Slight 12/28/17 07:09 Anisocytosis (manual) Slight 12/28/17 07:09 Macrocytosis (manual) Moderate 12/27/17 11:50 PT 17.9 SECONDS (9.7-12.2) H 12/28/17 07:09 INR 1.6 12/28/17 07:09 APTT 36 SECONDS (21-34) H 12/28/17 07:09 Sodium 132 mmol/L (132-148) 12/28/17 07:09 Potassium 4.1 mmol/L (3.6-5.2) 12/28/17 07:09 Chloride 104 mmol/L (98-107) 12/28/17 07:09 Carbon Dioxide 19 mmol/L (22-30) L 12/28/17 07:09 Anion Gap 13 (10-20) 12/28/17 07:09 BUN 8 mg/dL (9-20) L 12/28/17 07:09 Creatinine 0.5 mg/dL (0.8-1.5) L 12/28/17 07:09 Est GFR ( Amer) > 60 12/28/17 07:09 Est GFR (Non-Af Amer) > 60 12/28/17 07:09 Random Glucose 94 mg/dL (75-110) 12/28/17 07:09 Calcium 8.2 mg/dl (8.6-10.4) L 12/28/17 07:09 Phosphorus 4.1 mg/dL (2.5-4.5) 12/28/17 07:09 Magnesium 1.9 mg/dL (1.6-2.3) 12/28/17 07:09 Total Bilirubin 14.3 mg/dL (0.2-1.3) H 12/28/17 07:09 AST 118 U/L (17-59) H 12/28/17 07:09 ALT 92 U/L (21-72) H 12/28/17 07:09 Alkaline Phosphatase 266 U/L (38-126) H D 12/28/17 07:09 Total Protein 6.3 g/dL (6.3-8.3) 12/28/17 07:09 Albumin 2.4 g/dL (3.5-5.0) L D 12/28/17 07:09 Globulin 3.9 gm/dL (2.2-3.9) 12/28/17 07:09 Albumin/Globulin Ratio 0.6 (1.0-2.1) L 12/28/17 07:09 Amylase 46 U/L (30-110) 12/28/17 07:09 Lipase 133 U/L (23-300) 12/28/17 07:09 Urine Color Tamika (YELLOW) 12/27/17 11:50 Urine Clarity Hazy (Clear) 12/27/17 11:50 Urine pH 6.0 (5.0-8.0) 12/27/17 11:50 Ur Specific [place] 1.025 (1.003-1.030) 12/27/17 11:50 Urine Protein Negative mg/dL (NEGATIVE) 12/27/17 11:50 Urine Glucose (UA) Normal mg/dL (Normal) 12/27/17 11:50 Urine Ketones Negative mg/dL (NEGATIVE) 12/27/17 11:50 Urine Blood Negative (NEGATIVE) 12/27/17 11:50 Urine Nitrate Negative (NEGATIVE) 12/27/17 11:50 Urine Bilirubin 2+ (NEGATIVE) H 12/27/17 11:50 Urine Urobilinogen 4.0 mg/dL (0.2-1.0) 12/27/17 11:50 Ur Leukocyte Esterase Neg Abigail/uL (Negative) 12/27/17 11:50 Urine WBC (Auto) 5 /hpf (0-5) 12/27/17 11:50 Urine RBC (Auto) 2 /hpf (0-3) 12/27/17 11:50 Ur Squamous Epith Cells < 1 /hpf (0-5) 12/27/17 11:50 Fluid Source Peritoneal/ascites 12/28/17 11:13 Fluid Appearance Sl cloudy (CLEAR) 12/28/17 11:13 Fluid WBC 147.0 /mm3 (0.0-300.0) 12/28/17 11:13 Fluid RBC 504.0 /mm3 (0.0-0.0) H 12/28/17 11:13 Fluid Tot Cell Count 100 (0-0) H 12/28/17 11:13 Fluid Neutrophils 16.0 % (0-0) H 12/28/17 11:13 Fluid Lymphocytes 70.0 % (0-0) H 12/28/17 11:13 Fld Monocyte/Macrophag 14 % (0-0) H 12/28/17 11:13 Fluid Comment 12/28/17 11:13 Alcohol, Quantitative < 10 mg/dl (0-10) 12/27/17 11:50 Hepatitis A IgM Ab Negative (NEGATIVE) 12/27/17 11:50 Hep Bs Antigen Negative (NEGATIVE) 12/27/17 11:50 Hep B Core IgM Ab Negative (NEGATIVE) 12/27/17 11:50 Hepatitis C Antibody Negative (NEGATIVE) 12/27/17 11:50 - Hospital Course Hospital Course: On admission: 47yo m with a PMHx of etoh abuse and a recent hospitalization at [facility] (nov 2017) presents to the ED with a 1 month history of scleral icterus and a 1 week hx of abdominal distension. Pt denies any associated pains with the distension but states he feels a constant fullness and occasional get reflux like symptoms after eating. Pt denies any blood in his sputum and denies ever vomiting. Pt states that he has been compliant with his discharge medications for this past month however he did not follow up in clinic with Dr Pond. Hospital course: Patient was admitted for 1 month history of jaundice and abdominal distention. Patient was seen here recently on 11/28/17 for similar symptoms of jaundice, ascites with liver cirrhosis, however patient did not follow up in clinic upon discharge. Upon examination, patient was noted to have abdominal distention with positive fluid sign, dullness to percussion and hepatosplenomegaly, with no tenderness. IR Dr. Alvarado was consulted for paracentesis. Dr. Alvarado removed 1.8 liters of peritoneal fluid which was sent for further analysis. Patient tolerated the procedure well and stated that he felt that his distention had improved significantly. Patient was instructed to follow up with [facility] in 1 week to review results of fluid analysis and for referral to [facility] liver clinic. Patient was medically stable upon discharge. Imagin12/27/17 Obstructive series: No bowel obstruction suggested this time. No free air appreciated.Nonspecific bowel gas pattern. Moderate colonic stool retention suggested. Continued is clinical surveillance recommended. No pulmonary infiltrates 11/28/17 CT abdomen/pelvis 1. Mild dilatation of fluid-filled mid small bowel loops in the right mid abdomen, nonspecific and could be related to nonspecific enteritis, ileus or developing partial small bowel obstruction. 2. Moderate hepatosplenomegaly and fatty liver. Nodular contour of the liver could represent cirrhosis. 11/28/17 Abdomen US Moderate hepatosplenomegaly.Diffuse increased echogenicity in the liver may reflect hepatic steatosis however parenchymal infectious/ inflammatory etiologies cannot be entirely excluded. Clinical and laboratory correlation is advised. Thick gallbladder wall and mild pericholecystic fluid, nonspecific and could be related to primary or secondary etiologies. Suspect 4 mm gallbladder polyp along the anterior wall. No cholelithiasis or biliary dilatation. Discharge instructions: Patient is medically stable for discharge. Patient was advised to follow up at [facility] next week to review specimen testing from peritoneal fluid removed from paracentesis. Appointment made for 01/03/18 at 1pm at [facility]. Patient advised to abstain from alcohol. Patient should follow up with [facility] liver clinic, referral to be obtained from [facility]. Please return to the Emergency Department if symptoms recur or worsen. El paciente est mdicamente estable para el pankaj. Se recomend al paciente que realice un seguimiento en la clnica de nataly de [facility] la prxima semana para revisar las pruebas de muestras del lquido peritoneal extrado de la paracentesis. Courtney programada para el 01/03/18 a la 1 pm en [facility]. Paciente aconseja abstenerse del alcohol. El paciente debe hacer un seguimiento con la clnica de hgado [id number], la derivacin se obtendr de la clnica [facility]. Por favor regrese al Departamento de Emergencias si los sntomas reaparecen o empeoran. Prescriptions provided: Lasix 40mg by mouth daily for 30 days # 30 tablets Folic acid 1mg by mouth daily for 30 days # 30 tablets Multivitamin 1 tablet by mouth daily # 30 tablets Spironolactone 50mg by mouth twice daily #60 tablets Thiamine 50mg by mouth daily # 30 tablets Discharge Exam - Head Exam Head Exam: ATRAUMATIC, NORMOCEPHALIC - Eye Exam Eye Exam: Scleral icterus Pupil Exam: PERRL Additional comments: Mucosa underneath tongue noted to be jaundiced - ENT Exam ENT Exam: Mucous Membranes Moist - Respiratory Exam Respiratory Exam: Clear to PA & Lateral. absent: Rales, Rhonchi, Wheezes, Stridor - Cardiovascular Exam Cardiovascular Exam: REGULAR RHYTHM, +S1, +S2 - GI/Abdominal Exam GI & Abdominal Exam: Distended, Normal Bowel Sounds, Organomegaly, Soft. absent: Firm, Guarding, Hernia, Tenderness - Extremities Exam Extremities exam: pedal pulses present Additional comments: no calf tenderness, no pedal edema - Back Exam Back exam: absent: CVA tenderness (L), CVA tenderness (R) - Neurological Exam Neurological exam: Alert, CN II-XII Intact, Oriented x3 - Psychiatric Exam Psychiatric exam: Normal Affect, Normal Mood - Skin Additional comments: Diffusely jaundiced Discharge Plan - Discharge Medications Prescriptions: Folic Acid 1 mg PO DAILY #30 tab Furosemide [Lasix] 40 mg PO DAILY #30 tab Multivitamin [Daily Vitamin Formula] 1 each PO DAILY #30 tablet Spironolactone [Aldactone] 50 mg PO BID #60 tab Thiamine [Vitamin B1 Tab] 50 mg PO DAILY #30 tab - Follow Up Plan Condition: GOOD Disposition: HOME/ ROUTINE Instructions: Acid Reflux (Gastroesophageal Reflux Disease), Adult (DC), Acute Abdomen (Belly Pain), Adult (DC), Cirrhosis (DC), Cyanocobalamin, Folic Acid, Furosemide, Spironolactone, Vitamins (Multiple/Oral) Additional Instructions: Patient is medically stable for discharge. Patient was advised to follow up at [facility] next week to review specimen testing from peritoneal fluid removed from paracentesis. Appointment made for 01/03/18 at 1pm at [facility]. Patient advised to abstain from alcohol. Patient should follow up with [facility] liver clinic, referral to be obtained from [facility]. Please return to the Emergency Department if symptoms recur or worsen. El paciente est mdicamente estable para el pankaj. Se recomend al paciente que realice un seguimiento en la clnica de nataly de [facility] la prxima semana para revisar las pruebas de muestras del lquido peritoneal extrado de la paracentesis. Courtney programada para el 01/03/18 a la 1 pm en [facility]. Paciente aconseja abstenerse del alcohol. El paciente debe hacer un seguimiento con la clnica de hgado [facility], la derivacin se obtendr de la clnica [facility]. Por favor regrese al Departamento de Emergencias si los sntomas reaparecen o empeoran. Prescriptions provided: Lasix 40mg by mouth daily for 30 days # 30 tablets Folic acid 1mg by mouth daily for 30 days # 30 tablets Multivitamin 1 tablet by mouth daily # 30 tablets Spironolactone 50mg by mouth twice daily #60 tablets Thiamine 50mg by mouth daily # 30 tablets
[2017-12-28] MEDS ORDERED: Influenza Vaccine 60 MCG/0.5 ML SYR (3 yr & up) IM ONE (14:41)
[2017-12-29] MEDS ORDERED: Influenza Vaccine 60 MCG/0.5 ML SYR (3 yr & up) IM ONE (08:00)
[2017-12-29] MEDS ORDERED: Pneumococcal 23-Valent Vaccine IM ONE (10:00)
--- NOTE | 2017-12-29 11:59 | US ---
Date of Procedure: 12/28/2017 PROCEDURE: Ultrasound-guided paracentesis, CPT 72506 Medications: 7 cc 1% Lidocaine HISTORY: Ascites, abdominal pain TECHNIQUE: Following informed consent , the patient was placed supine on the stretcher and the site was marked. A limited abdominal ultrasound was performed that showed a SMALL amount of intra-abdominal fluid. Procedural time out was called and the Pt's abdomen was marked and prepped and draped in the usual sterile fashion. Ultrasound-guided paracentesis performed. A total of 1.8 Liters of straw colored fluid was removed without complication. IMPRESSION: Ultrasound-guided paracentesis.
== END 2017-12-28 15:15 | disposition home or self-care (01) ==
LOC: C.ER 11:15 → C.9E 12:49 → C.3T 15:04
PROVIDERS: ADMIT Internal Medicine; ATTEND Internal Medicine
DX: K70.31 Alcoholic cirrhosis of liver with ascites (principal); I10 Essential (primary) hypertension; Z87.891 Personal history of nicotine dependence; K76.0 Fatty (change of) liver, not elsewhere classified
CPT/HCPCS: 36415; 49083; 74022; 80053; 80074; 80320; 81001; 82042; 82150; 82945; 83615; 83690; 83735; 84100; 84157; 85025; 85610; 85730; 87015; 87070; 87075; 87101; 87116; 87206; 88104; 88305; 89051; 90471; 90674; 96372; 99285; G0378; J3430

== ENCOUNTER 2018-01-28 11:23 | Inpatient (IN) | payer OTHER, SELFPAY ==
--- NOTE | 2018-01-28 11:54 | C.PDOC ---
Chief Complaint (Nursing): Lower Extremity Problem/Injury Past Medical History Vital Signs: Last Vital Signs Temp 98.8 F 01/28/18 11:26 Pulse 117 H 01/28/18 11:26 Resp 18 01/28/18 11:26 BP 125/71 01/28/18 11:26 Pulse Ox 100 01/28/18 11:26 - Medical History PMH: HTN - Social History Hx Tobacco Use: No Hx Alcohol Use: Yes Hx Substance Use: No - Immunization History Hx Tetanus Toxoid Vaccination: No Hx Influenza Vaccination: No Hx Pneumococcal Vaccination: No ED Course And Treatment O2 Sat by Pulse Oximetry: 100 Disposition - Disposition
--- NOTE | 2018-01-28 12:21 | C.PDOC ---
History Of Present Illness 47 yr old male w/ hx of etoh, cirrhosis w/ previous paracentesis p/w b/l LE swelling. B/L LE swelling started 8d ago, preceded by abdominal distention which has been enlarging. Pt had a paracentesis roughly 1 month prior, and pt notes that his abdomen was much less distended after drainage. Pt notes that since then his abdomen has been enlarging since. He denies any fever, chills or night sweats. No chest pain or sob. No headache. No AMS. No nausea or vomiting. No abdominal pain. No dark or bloody stool. No hematemesis. He denies any trauma or falls. No other complaints Time Seen by Provider: 01/28/18 12:06 Chief Complaint (Nursing): Lower Extremity Problem/Injury Past Medical History Vital Signs: Last Vital Signs Temp 98.8 F 01/28/18 11:26 Pulse 117 H 01/28/18 11:26 Resp 18 01/28/18 11:26 BP 125/71 01/28/18 11:26 Pulse Ox 100 01/28/18 12:05 - Medical History PMH: HTN Family History: States: Unknown Family Hx - Social History Hx Tobacco Use: No Hx Alcohol Use: Yes Hx Substance Use: No - Immunization History Hx Tetanus Toxoid Vaccination: No Hx Influenza Vaccination: No Hx Pneumococcal Vaccination: No Review Of Systems Constitutional: Negative for: Fever, Chills, Sweats, Weakness, Malaise Eyes: Negative for: Pain, Vision Change ENT: Negative for: Ear Pain, Ear Discharge, Nose Pain, Nose Congestion, Mouth Pain Cardiovascular: Positive for: Edema. Negative for: Chest Pain, Palpitations, Orthopnea, Paroxysmal Noc. Dyspnea Respiratory: Negative for: Cough, Shortness of Breath, Hemoptysis, SOB with Excertion, Pleuritic Pain Gastrointestinal: Negative for: Nausea, Vomiting, Constipation, Melena Genitourinary: Negative for: Dysuria, Frequency, Hematuria, Penile Discharge Musculoskeletal: Negative for: Neck Pain, Back Pain Skin: Negative for: Rash Neurological: Negative for: Weakness, Numbness, Incoordination, Confusion, Seizures Psych: Negative for: Anxiety, Psychosis Physical Exam - Physical Exam Appears: Well, Non-toxic, No Acute Distress Skin: Warm, Dry, Jaundice Head: Atraumatic, Normacephalic Eye(s): bilateral: Normal Inspection Ear(s): Bilateral: Normal Nose: Normal Oral Mucosa: Moist Tongue: Normal Appearing Lips: Normal Appearing Teeth: Normal Dentition Gingiva: Normal Appearing Throat: Normal Neck: Normal, Normal ROM, Supple, Other (no ) Lymphatic: No Axilla Node Tenderness, No Inguinal Node Tenderness Chest: Symmetrical, No Deformity Cardiovascular: Rhythm Regular Respiratory: Normal Breath Sounds Gastrointestinal/Abdominal: No Tenderness, No Mass, Distention, No Guarding, No Rebound, Ascites Back: Normal Inspection, No CVA Tenderness Extremity: No Tenderness, Swelling (b/l LE 3+), Other (good n/v status) Extremity: Bilateral: Atraumatic Pulses: Left Dorsalis Pedis: Normal, Right Dorsalis Pedis: Normal Neurological/Psych: Oriented x3, Normal Speech, Normal Cognition, No Cerebellar Signs Gait: Steady Extremity: Right: No Drift (no asterixis), Left: No Drift, Upper: No Drift, Lower: No Drift ED Course And Treatment - Laboratory Results Result Diagrams: 01/28/18 12:31 01/28/18 12:31 O2 Sat by Pulse Oximetry: 100 Medical Decision Making Medical Decision Makin yr old male w/ hx of etoh use, cirrhosis, p/w worsening b/l LE edema x8d. Initially worsening abd distension followed by LE edema: pt likely has b/l LE edema 2/2 ascities. No trauma or fall. Good N/V status. No indication of comp artment syndrome. No rashes. No fever. No asterixis. Pending imaging and labs. 1259 Hgb 6.0. Bun 28 No dark or bloody stool per pt. No hematemesis or coffee ground emesis. Consenting for blood Appreciate consult w/ Dr. Richards: to admit to her service 1341 less tachy on monitor: 94 Pt in NAD, once again denies any dark or bloody stool or hematemesis or coffee ground emesis No fever, chills or night sweats. No elevated WBC endorsed pending dopplers, remaining labs + w/u to Dr. Richards who is agreeable. Disposition - Disposition Disposition: HOME/ ROUTINE Disposition Time: 13:42 Condition: GOOD Forms: [email or web address] (Yi) - Clinical Impression Clinical Impression: Anemia
[2018-01-28 12:42] LABS: BASO % 0.3 % (0.0-2.0); EOS # 0.1 K/uL (0.0-0.7); EOS % 0.7 % (0.0-4.0); LYMPH % 12.7 % (20.0-40.0); MEAN CORPUSCULAR HEMOGLOBIN 38.6 pg (27.0-31.0); MEAN CORPUSCULAR HGB CONC 34.5 g/dL (33.0-37.0); MEAN PLATELET VOLUME 8.4 fL (7.2-11.7); MONO # 0.7 K/uL (0.0-0.8); MONO % 9.1 % (0.0-10.0); NEUT # 6.1 K/uL (1.8-7.0); NEUT % 77.2 % (50.0-75.0); RBC 1.56 Mil/uL (4.40-5.90); RED CELL DISTRIBUTION WIDTH 14.7 % (11.5-14.5); WHITE BLOOD COUNT 7.9 K/uL (4.8-10.8)
[2018-01-28 12:49] LABS: ALB/GLOB RATIO 0.6 (1.0-2.1); ALBUMIN 2.1 g/dL (3.5-5.0); ALT/SGPT 63 U/L (21-72); AST/SGOT 65 U/L (17-59); BLOOD UREA NITROGEN 28 mg/dL (9-20); CALCIUM 7.2 mg/dl (8.6-10.4); GFR NON-AFRICAN AMERICAN > 60
[2018-01-28 12:50] LABS: MEAN CELL VOLUME 112.1 fL (80.0-94.0)
[2018-01-28 12:59] LABS: B-TYPE NATRIURETIC PEPTIDE 227 pg/mL (0-450)
--- NOTE | 2018-01-28 13:32 | RAD ---
Date of service: 01/28/2018 HISTORY: b/l le edema COMPARISON: No prior. TECHNIQUE: Chest PA and lateral FINDINGS: LUNGS: No active pulmonary disease. PLEURA: No significant pleural effusion identified. No pneumothorax apparent. CARDIOVASCULAR: No aortic atherosclerotic calcification present. Heart size grossly normal. The film is likely mislabeled with the heart demonstrated on the right side. Obstructive series of 07/18/19 14 demonstrates left-sided heart. OSSEOUS STRUCTURES: No significant abnormalities. VISUALIZED UPPER ABDOMEN: Normal. OTHER FINDINGS: None. IMPRESSION: No active disease.
[2018-01-28 13:41] LABS: INR 1.8; PROTHROMBIN TIME 20.2 SECONDS (9.7-12.2)
[2018-01-28] MEDS ORDERED: Phytonadione 10 mg/ml Inj (Adult) SC ONE (14:33)
--- NOTE | 2018-01-28 14:45 | CP.PCM.HP ---
<Tayla Perez E - Last Filed: 01/28/18 14:53> History of Present Illness - History of Present Illness History of Present Illness: CC: Bilateral LE Edema [facility] [employer] ( David, [id number]) Patient is a 47 year old male with past medical history of alcohol abuse and unknown symptomatic cirrhosis with previous paracentesis on (12/28/17), who presents to the ED with complaints of bilateral lower extremities edema that has been going on for 8 days, which was preceded with abdominal distention for a month. Patient states that he has been taking his medications as prescribed since his last admission and he has established care in the [facility]. However, patient has not seek any medical attention since his the start of his recent episode of peripheral edema and abdominal distention because of work. Upon review of systems, patient admits to fatigue, lightheadedness, orthopnea, low grade fever 2 days ago, and increasing shoe size, however, patient denies any symptoms chills, chest pain, palpitations, nausea, vomiting, hematemesis, bloody or dark BM, recent travels or abdominal pain and altered mental status change. Patient last use of ETOH was 5 months ago. Code Status: Full code Emergency contact: Young Victor, PMD: Dr. 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 Former light smoker quit 20 years ago; admits to drinking eight 16-18 oz cans of beer/day, reports last intake of EtOH was 5 months ago, denies illicit drug use Present on Admission - Present on Admission Any Indicators Present on Admission: No Review of Systems - Constitutional Constitutional: Fatigue, Fever. absent: Daytime Sleepiness, Excessive Sweating, Headache, Malaise - EENT Eyes: absent: Blurred Vision, Change in Vision Ears: absent: Dizziness - Cardiovascular Cardiovascular: Dyspnea on Exertion, Edema, Leg Edema, Lightheadedness, Orthopnea. absent: Chest Pain, Chest Pain at Rest, Diaphoresis, Dyspnea, Pal pitations, Syncope - Respiratory Respiratory: absent: Cough, Hemoptysis, Wheezing - Gastrointestinal Gastrointestinal: Bloating. absent: Abdominal Pain, Change in Bowel Habits, Constipation, Diarrhea, Dysphagia, Hematemesis, Hematochezia, Melena, Nausea, Vomiting - Genitourinary Genitourinary: absent: Difficulty Urinating, Hematuria - Musculoskeletal Musculoskeletal: absent: Arthralgias, Numbness, Tingling - Integumentary Integumentary: Jaundice. absent: Pruritus, Rash - Neurological Neurological: absent: Confusion, Dizziness, Numbness, Headaches, Lack of Co ordination, Weakness - Endocrine Endocrine: Fatigue. absent: Palpitations Past Patient History - Past Medical History & Family History Past Medical History?: No - Past Social History Smoking Status: Former Smoker - CARDIAC Hx Hypertension: Yes - HEMATOLOGICAL/ONCOLOGICAL Hx Blood Disorders: Yes Hx Cirrhosis: Yes - MUSCULOSKELETAL/RHEUMATOLOGICAL Hx Falls: No - PSYCHIATRIC Hx Substance Use: No - SURGICAL HISTORY Hx Surgeries: No - ANESTHESIA Hx Anesthesia: No Meds Allergies/Adverse Reactions: Allergies Allergy/AdvReac Type Severity Reaction Status Date / Time Penicillins Allergy RASH Verified 01/28/18 11:29 Physical Exam - Constitutional Appears: No Acute Distress - Head Exam Head Exam: ATRAUMATIC, NORMAL INSPECTION - Eye Exam Eye Exam: EOMI, Scleral icterus - ENT Exam ENT Exam: Mucous Membranes Moist - Respiratory Exam Respiratory Exam: Clear to Auscultation Bilateral, NORMAL BREATHING PATTERN. absent: Decreased Breath Sounds, Rales, Rhonchi, Wheezes - Cardiovascular Exam Cardiovascular Exam: Tachycardia, REGULAR RHYTHM, +S1, +S2 - GI/Abdominal Exam GI & Abdominal Exam: Distended, Hypoactive Bowel Sounds, Soft. absent: Guardi ng, Hyperactive Bowel Sounds, Pulsatile Mass, Rebound, Rigid, Tenderness - Extremities Exam Extremities exam: Positive for: pedal edema Additional comments: +2 pitting edema - Back Exam Back exam: NORMAL INSPECTION. absent: CVA tenderness (L), CVA tenderness (R) - Neurological Exam Neurological exam: Alert, Oriented x3 - Psychiatric Exam Psychiatric exam: Normal Affect, Normal Mood - Skin Skin Exam: Pallor Additional comments: Pallor noted in the nail beds Jaundiced Results - Vital Signs Recent Vital Signs: Last Vital Signs Temp 98.2 F 01/28/18 14:27 Pulse 95 H 01/28/18 14:27 Resp 18 01/28/18 14:27 BP 127/70 01/28/18 14:27 Pulse Ox 100 01/28/18 14:27 - Labs Result Diagrams: 01/28/18 12:31 01/28/18 12:31 Labs: Laboratory Results - last 24 hr 01/28/18 01/28/18 01/28/18 12:31 12:31 12:31 WBC 7.9 RBC 1.56 L Hgb 6.0 L* D Hct 17.5 L MCV 112.1 H D MCH 38.6 H MCHC 34.5 RDW 14.7 H Plt Count 75 L MPV 8.4 Neut % (Auto) 77.2 H Lymph % (Auto) 12.7 L [place] % (Auto) 9.1 Eos % (Auto) 0.7 Baso % (Auto) 0.3 Neut # (Auto) 6.1 Lymph # (Auto) 1.0 [place] # (Auto) 0.7 Eos # (Auto) 0.1 Baso # (Auto) 0.0 PT INR Sodium 123 L Potassium 4.1 Chloride 98 Carbon Dioxide 18 L Anion Gap 12 BUN 28 H Creatinine 0.8 Est GFR ( Amer) > 60 Est GFR (Non-Af Amer) > 60 Random Glucose 139 H Calcium 7.2 L Magnesium 2.4 H Total Bilirubin 5.1 H AST 65 H D ALT 63 Alkaline Phosphatase 216 H D Ammonia 20 D Troponin I < 0.0120 NT-Pro-B Natriuret Pep 227 Total Protein 5.4 L Albumin 2.1 L D Globulin 3.3 Albumin/Globulin Ratio 0.6 L Stool Occult Blood Blood Type Antibody Screen 01/28/18 01/28/18 01/28/18 12:31 13:10 14:36 WBC RBC Hgb Hct MCV MCH MCHC RDW Plt Count MPV Neut % (Auto) Lymph % (Auto) [place] % (Auto) Eos % (Auto) Baso % (Auto) Neut # (Auto) Lymph # (Auto) [place] # (Auto) Eos # (Auto) Baso # (Auto) PT 20.2 H INR 1.8 Sodium Potassium Chloride Carbon Dioxide Anion Gap BUN Creatinine Est GFR ( Amer) Est GFR (Non-Af Amer) Random Glucose Calcium Magnesium Total Bilirubin AST ALT Alkaline Phosphatase Ammonia Troponin I NT-Pro-B Natriuret Pep Total Protein Albumin Globulin Albumin/Globulin Ratio Stool Occult Blood Negative Blood Type O POSITIVE Antibody Screen Negative Assessment & Plan (1) Bilateral edema of lower extremity Assessment and Plan: 2/2 to cirrhosis Venous doppler ( Pending official results): F/u echocardiogram Medication/Management: * Lasix 40mg IV daily Status: Acute (2) Anemia Assessment and Plan: 2/2 chronic liver disease H/H: 6.0/17.5 Plans for transfusion of 2 PRBC F/u repeat CBC post transfusion F/u occult blood INR: 1.8 * Given vitamin K F/u anemia lab studies: Iron, % saturation, ferritin, reticulocytes, vitamin B12, folate, TIBC Protonix 40mg IV Q12H, (possible GI bled as DDX) Status: Acute (3) Alcoholic cirrhosis of liver with ascites Assessment and Plan: with peripheral edema and jaundice Consultatios: - GI, Dr. Gan---> Help appreciated * management as per recommendation - IR for ultrasound guided paracentesis Previous imagin11/28/17 CT abdomen/pelvis 1. Mild dilatation of fluid-filled mid small bowel loops in the right mid abdomen, nonspecific and could be related to nonspecific enteritis, ileus or developing partial small bowel obstruction. 2. Moderate hepatosplenomegaly and fatty liver. Nodular contour of the liver could represent cirrhosis. 11/28/17 Abdomen US Moderate hepatosplenomegaly.Diffuse increased echogenicity in the liver may reflect hepatic steatosis however parenchymal infectious/ inflammatory etiologies cannot be entirely excluded. Clinical and laboratory correlation is advised. Thick gallbladder wall and mild pericholecystic fluid, nonspecific and could be related to primary or secondary etiologies. Suspect 4 mm gallbladder polyp along the anterior wall. No cholelithiasis or biliary dilatation. Current management: * Lasix 40mg IV daily * Aldactone 50mg PO BID * Liquid diet with low salt and fluid restriction Status: Acute (4) Alcohol abuse Assessment and Plan: Thamine 100mg IV daily Folic acid 1mg IV daily Multivitamin 1 tab PO daily Status: Chronic (5) Prophylactic measure Assessment and Plan: GI: Protonix 40mg IV Q12H DVT: SCDs and chemical agent contraindicated due to bilateral edema and acute anemia All plans and management discussed with Dr. Richards Status: Acute <Bernadine Richards - Last Filed: 02/08/18 15:47> Results - Vital Signs Recent Vital Signs: Last Vital Signs Temp 98.4 F 02/08/18 07:00 Pulse 72 02/08/18 07:00 Resp 20 02/08/18 07:00 BP 101/64 02/08/18 09:00 Pulse Ox 97 02/08/18 07:00 - Labs Result Diagrams: 02/08/18 06:25 02/08/18 06:25 Labs: Laboratory Results - last 24 hr 02/08/18 02/08/18 06:25 06:25 WBC 3.6 L RBC 2.21 L Hgb 7.8 L Hct 22.8 L MCV 102.9 H MCH 35.2 H MCHC 34.3 RDW 16.3 H Plt Count 79 L MPV 9.0 Neut % (Auto) 59.3 Lymph % (Auto) 28.9 [place] % (Auto) 7.8 Eos % (Auto) 2.7 Baso % (Auto) 1.3 Neut # (Auto) 2.1 Lymph # (Auto) 1.0 [place] # (Auto) 0.3 Eos # (Auto) 0.1 Baso # (Auto) 0.0 Sodium 133 Potassium 3.7 Chloride 105 Carbon Dioxide 17 L Anion Gap 14 BUN 10 Creatinine 0.5 L Est GFR ( Amer) > 60 Est GFR (Non-Af Amer) > 60 Random Glucose 86 Calcium 7.8 L Total Bilirubin 2.6 H AST 27 ALT 27 Alkaline Phosphatase 94 Total Protein 5.8 L Albumin 2.8 L Globulin 3.0 Albumin/Globulin Ratio 0.9 L Attending/Attestation - Attestation I have personally seen and examined this patient.: Yes I have fully participated in the care of the patient.: Yes I have reviewed all pertinent clinical information: Yes Notes (Text): Assessment and the plan discussed in detail with the resident . Patient was examined by me. I agree with the documentation
[2018-01-28 15:39] LABS: IRON 31 ug/dL (49-181)
[2018-01-28 15:48] LABS: % IRON SATURATION 15 (20-55); TOTAL IRON BINDING CAPACITY 210 ug/dL (250-450)
[2018-01-28 16:46] LABS: FOLATE 11.6 ng/mL
[2018-01-29 08:43] LABS: BASO % 0.6 % (0.0-2.0); EOS # 0.2 K/uL (0.0-0.7); EOS % 3.1 % (0.0-4.0); LYMPH # 1.1 K/uL (1.0-4.3); LYMPH % 18.3 % (20.0-40.0); MEAN CORPUSCULAR HEMOGLOBIN 36.6 pg (27.0-31.0); MEAN CORPUSCULAR HGB CONC 35.1 g/dL (33.0-37.0); MEAN PLATELET VOLUME 8.3 fL (7.2-11.7); MONO # 0.5 K/uL (0.0-0.8); MONO % 8.4 % (0.0-10.0); NEUT # 4.2 K/uL (1.8-7.0); NEUT % 69.6 % (50.0-75.0); NRBC % 0.2 % (0.0-2.0); RBC 2.21 Mil/uL (4.40-5.90); RED CELL DISTRIBUTION WIDTH 19.3 % (11.5-14.5)
[2018-01-29 09:02] LABS: ALB/GLOB RATIO 0.6 (1.0-2.1); ALT/SGPT 57 U/L (21-72); AST/SGOT 60 U/L (17-59); BLOOD UREA NITROGEN 22 mg/dL (9-20); CALCIUM 7.3 mg/dl (8.6-10.4); GFR NON-AFRICAN AMERICAN > 60; HEMOGLOBIN 8.1 g/dL (12.0-18.0); MEAN CELL VOLUME 104.1 fL (80.0-94.0)
[2018-01-29] MEDS: Thiamine 100 mg/ml Inj IV SCH (09:26)
--- NOTE | 2018-01-29 11:59 | CP.PCM.CON ---
History of Present Illness - History of Present Illness History of Present Illness: This is a 47 year old man with anemia. Patient has been admitted twice to recently, 11/28/2017 and 12/27/2017. In November, he complained of coffee grounds vomiting, was noted to be jaundiced (TBILI 12.5) and had ascites on CT scan. Endoscopy and paracentesis were not performed. In December, he complained of increasing abdominal distention. Again, jaundice was noted (TBILI 15.7) along with positive fluid wave. Paracentesis was performed on 12/28/2017: 1.8 liters were removed. WBC count was 147 with 16% PMNs, fluid albumin was 0.4, with serum albumin of 2.4. He was discharged after the paracentesis with prescriptions for furosemide 40 mg OD and spironolactone 50 mg BID. He presented to the ER yesterday with complaints of bilateral leg swelling and increasing abdominal distention. He states that he has been compliant with the medical regimen. He denies having abdominal pain, nausea, vomiting, difficulty swallowing, heartburn, diarrhea, constipation, rectal bleeding and dark stools. Review of Systems - Review of Systems All systems: reviewed and no additional remarkable complaints except - Constitutional Constitutional: absent: Chills, Fever, Night Sweats - EENT Eyes: absent: Change in Vision, Pain Ears: absent: Ear Pain - Cardiovascular Cardiovascular: Edema. absent: Chest Pain, Palpitations - Respiratory Respiratory: absent: Cough, Dyspnea, Hemoptysis - Gastrointestinal Gastrointestinal: absent: Abdominal Pain, Constipation, Diarrhea, Dysphagia, Heartburn, Hematochezia, Melena, Nausea, Vomiting - Genitourinary Genitourinary: absent: Dysuria, Urinary Frequency - Musculoskeletal Musculoskeletal: absent: Back Pain, Neck Pain - Neurological Neurological: absent: Weakness Past Patient History - Past Medical History & Family History Past Medical History?: No - Past Social History Smoking Status: Former Smoker - CARDIAC Hx Hypertension: Yes - PULMONARY Hx Respiratory Disorders: No - NEUROLOGICAL Hx Neurological Disorder: No - HEENT Hx HEENT Problems: No - RENAL Hx Chronic Kidney Disease: No - ENDOCRINE/METABOLIC Hx Endocrine Disorders: No - HEMATOLOGICAL/ONCOLOGICAL Hx Blood Disorders: Yes Hx Cirrhosis: Yes - INTEGUMENTARY Hx Dermatological Problems: No - MUSCULOSKELETAL/RHEUMATOLOGICAL Hx Falls: No - GASTROINTESTINAL Hx Gastrointestinal Disorders: No - GENITOURINARY/GYNECOLOGICAL Hx Genitourinary Disorders: No - PSYCHIATRIC Hx Substance Use: No - SURGICAL HISTORY Hx Surgeries: No - ANESTHESIA Hx Anesthesia: No Meds Allergies/Adverse Reactions: Allergies Allergy/AdvReac Type Severity Reaction Status Date / Time Penicillins Allergy RASH Verified 01/28/18 11:29 - Medications Medications: Current Medications Ferrous Sulfate (Feosol) 325 mg PO BID [facility] Last Admin: 01/29/18 09:25 Dose: 325 mg Furosemide (Lasix) 40 mg IVP DAILY [facility] Last Admin: 01/29/18 09:26 Dose: 40 mg Folic Acid 1 mg/ Sodium (Chloride) 100.2 mls @ 60 mls/hr IV DAILY [facility] Last Admin: 01/29/18 09:26 Dose: 60 mls/hr Pantoprazole Sodium (Protonix Inj) 40 mg IVP Q12H [facility] Last Admin: 01/29/18 02:46 Dose: 40 mg Spironolactone (Aldactone) 50 mg PO BID [facility] Last Admin: 01/29/18 09:25 Dose: 50 mg Thiamine HCl (Vitamin B1 Inj) 100 mg IV DAILY [facility] Last Admin: 01/29/18 09:26 Dose: 100 mg Physical Exam - Constitutional Appears: No Acute Distress - Head Exam Head Exam: ATRAUMATIC, NORMOCEPHALIC - Eye Exam Eye Exam: EOMI, PERRL, Scleral icterus - Neck Exam Neck exam: Negative for: Lymphadenopathy, Thyromegaly - Respiratory Exam Respiratory Exam: NORMAL BREATHING PATTERN. absent: Rales, Rhonchi, Wheezes - Cardiovascular Exam Cardiovascular Exam: REGULAR RHYTHM, +S1, +S2. absent: Rubs, Systolic Murmur - GI/Abdominal Exam GI & Abdominal Exam: Distended, Normal Bowel Sounds, Soft. absent: Organomegaly, Tenderness - Rectal Exam Rectal Exam: Deferred - Extremities Exam Extremities exam: Positive for: pedal edema. Negative for: calf tenderness Additional comments: Bilateral edema 1-2+ to mid mendoza Results - Vital Signs Recent Vital Signs: Last Vital Signs Temp 97.6 F 01/29/18 08:43 Pulse 82 01/29/18 08:43 Resp 20 01/29/18 08:43 BP 113/72 01/29/18 09:26 Pulse Ox 97 01/29/18 08:43 - Labs Result Diagrams: 01/29/18 08:25 01/29/18 08:25 Labs: Laboratory Results - last 24 hr 01/28/18 01/28/18 01/28/18 12:31 12:31 12:31 WBC 7.9 RBC 1.56 L Hgb 6.0 L* D Hct 17.5 L MCV 112.1 H D MCH 38.6 H MCHC 34.5 RDW 14.7 H Plt Count 75 L MPV 8.4 Neut % (Auto) 77.2 H Lymph % (Auto) 12.7 L [place] % (Auto) 9.1 Eos % (Auto) 0.7 Baso % (Auto) 0.3 Neut # (Auto) 6.1 Lymph # (Auto) 1.0 [place] # (Auto) 0.7 Eos # (Auto) 0.1 Baso # (Auto) 0.0 Retic Count PT INR Sodium 123 L Potassium 4.1 Chloride 98 Carbon Dioxide 18 L Anion Gap 12 BUN 28 H Creatinine 0.8 Est GFR ( Amer) > 60 Est GFR (Non-Af Amer) > 60 Random Glucose 139 H Calcium 7.2 L Phosphorus Magnesium 2.4 H Iron TIBC % Saturation Ferritin Total Bilirubin 5.1 H AST 65 H D ALT 63 Alkaline Phosphatase 216 H D Ammonia 20 D Troponin I < 0.0120 NT-Pro-B Natriuret Pep 227 Total Protein 5.4 L Albumin 2.1 L D Globulin 3.3 Albumin/Globulin Ratio 0.6 L Vitamin B12 Folate Stool Occult Blood Blood Type Antibody Screen 01/28/18 01/28/18 01/28/18 12:31 13:10 14:36 WBC RBC Hgb Hct MCV MCH MCHC RDW Plt Count MPV Neut % (Auto) Lymph % (Auto) [place] % (Auto) Eos % (Auto) Baso % (Auto) Neut # (Auto) Lymph # (Auto) [place] # (Auto) Eos # (Auto) Baso # (Auto) Retic Count PT 20.2 H INR 1.8 Sodium Potassium Chloride Carbon Dioxide Anion Gap BUN Creatinine Est GFR ( Amer) Est GFR (Non-Af Amer) Random Glucose Calcium Phosphorus Magnesium Iron TIBC % Saturation Ferritin Total Bilirubin AST ALT Alkaline Phosphatase Ammonia Troponin I NT-Pro-B Natriuret Pep Total Protein Albumin Globulin Albumin/Globulin Ratio Vitamin B12 Folate Stool Occult Blood Negative Blood Type O POSITIVE Antibody Screen Negative 01/28/18 01/28/18 01/28/18 15:20 15:20 15:20 WBC RBC Hgb Hct MCV MCH MCHC RDW Plt Count MPV Neut % (Auto) Lymph % (Auto) [place] % (Auto) Eos % (Auto) Baso % (Auto) Neut # (Auto) Lymph # (Auto) [place] # (Auto) Eos # (Auto) Baso # (Auto) Retic Count 8.3 H PT INR Sodium Potassium Chloride Carbon Dioxide Anion Gap BUN Creatinine Est GFR ( Amer) Est GFR (Non-Af Amer) Random Glucose Calcium Phosphorus Magnesium Iron 31 L TIBC 210 L % Saturation 15 L 13 L Ferritin Total Bilirubin AST ALT Alkaline Phosphatase Ammonia Troponin I NT-Pro-B Natriuret Pep Total Protein Albumin Globulin Albumin/Globulin Ratio Vitamin B12 Folate Stool Occult Blood Blood Type Antibody Screen 01/28/18 01/29/18 01/29/18 15:20 08:25 08:25 WBC 6.0 RBC 2.21 L Hgb 8.1 L D Hct 23.0 L MCV 104.1 H D MCH 36.6 H MCHC 35.1 RDW 19.3 H Plt Count 72 L MPV 8.3 Neut % (Auto) 69.6 Lymph % (Auto) 18.3 L [place] % (Auto) 8.4 Eos % (Auto) 3.1 Baso % (Auto) 0.6 Neut # (Auto) 4.2 Lymph # (Auto) 1.1 [place] # (Auto) 0.5 Eos # (Auto) 0.2 Baso # (Auto) 0.0 Retic Count PT INR Sodium 125 L Potassium 4.0 Chloride 98 Carbon Dioxide 16 L Anion Gap 14 BUN 22 H Creatinine 0.6 L Est GFR ( Amer) > 60 Est GFR (Non-Af Amer) > 60 Random Glucose 89 Calcium 7.3 L Phosphorus 3.5 Magnesium 2.2 Iron TIBC % Saturation Ferritin 473.0 Total Bilirubin 7.4 H AST 60 H ALT 57 Alkaline Phosphatase 181 H Ammonia Troponin I NT-Pro-B Natriuret Pep Total Protein 5.6 L Albumin 2.0 L Globulin 3.5 Albumin/Globulin Ratio 0.6 L Vitamin B12 > 1000 H Folate 11.6 Stool Occult Blood Blood Type Antibody Screen Assessment & Plan (1) Alcoholic cirrhosis of liver with ascites Assessment and Plan: Patient has decompensated cirrhosis most likely due to alcohol. He admits to a significant alcohol history, eight 16-ounce bottles of beer/day, though he denies drinking in the past six weeks. Hepatitis serology has been negative. He had ascites documented in November which has been difficult to control with the standard doses of diuretics. He also has coagulopathy (PT 20.2, INR 1.8) and thrombocytopenia (75,000). He was anemic, HGB 6 on admission, with retic ulocyte count of 8.3%. The first stool for occult blood was negative. Will arrange for repeat paracentesis and EGD to evaluate for varices. Status: Acute
[2018-01-29] MEDS ORDERED: Phytonadione 10 mg/ml Inj (Adult) SC STA (12:15)
[2018-01-29 12:45] LABS: BILIRUBIN,DIRECT 4.8 mg/dL (0.0-0.4)
--- NOTE | 2018-01-29 16:42 | CP.PCM.PN ---
<Tayla Perez E - Last Filed: 01/29/18 16:39> Subjective - Date & Time of Evaluation Date of Evaluation: 01/29/18 Time of Evaluation: 02:40 - Subjective Subjective: Medicine progress note ( Dr. Richards's service) Patient was seen and examined at bedside, while resting comfortably in bed in no acute distress. Patient denies any acute complaints or issues. Patient still does admits to mild epigastric discomfort and abdominal discomfort. Patient denies any symptoms of fever, chills, nausea, vomiting, chest pain, palpitatio ns, dizziness and shortness of breath. Objective - Vital Signs/Intake and Output Vital Signs (last 24 hours): Temp Pulse Resp BP Pulse Ox 97.6 F 99 H 20 113/72 97 01/29/18 08:43 01/29/18 12:00 01/29/18 08:43 01/29/18 09:26 01/29/18 08:43 Intake and Output: 01/29/18 01/29/18 06:59 18:59 Intake Total 525 Balance 525 - Medications Medications: Current Medications Ferrous Sulfate (Feosol) 325 mg PO BID [facility] Last Admin: 01/29/18 09:25 Dose: 325 mg Furosemide (Lasix) 40 mg IVP DAILY [facility] Last Admin: 01/29/18 09:26 Dose: 40 mg Folic Acid 1 mg/ Sodium (Chloride) 100.2 mls @ 60 mls/hr IV DAILY [facility] Last Admin: 01/29/18 09:26 Dose: 60 mls/hr Pantoprazole Sodium (Protonix Inj) 40 mg IVP Q12H [facility] Last Admin: 01/29/18 14:12 Dose: 40 mg Spironolactone (Aldactone) 50 mg PO BID [facility] Last Admin: 01/29/18 09:25 Dose: 50 mg Thiamine HCl (Vitamin B1 Inj) 100 mg IV DAILY [facility] Last Admin: 01/29/18 09:26 Dose: 100 mg - Labs Labs: 01/29/18 08:25 01/29/18 08:25 PT 20.2 SECONDS (9.7-12.2) H 01/28/18 13:10 INR 1.8 01/28/18 13:10 - Constitutional Appears: Well, No Acute Distress - Head Exam Head Exam: ATRAUMATIC, NORMAL INSPECTION - Eye Exam Eye Exam: EOMI, Scleral icterus - Respiratory Exam Respiratory Exam: Clear to Ausculation Bilateral, NORMAL BREATHING PATTERN. absent: Prolonged Expiratory Phase, Rhonchi, Wheezes, Respiratory Distress - Cardiovascular Exam Cardiovascular Exam: REGULAR RHYTHM, +S1, +S2 - GI/Abdominal Exam GI & Abdominal Exam: Distended, Soft, Normal Bowel Sounds Additional comments: + fluid wave - Extremities Exam Extremities Exam: Pedal Edema Additional comments: +2 pitting edema - Neurological Exam Neurological Exam: Alert, Awake, Oriented x3 - Psychiatric Exam Psychiatric exam: Normal Affect - Skin Skin Exam: Normal Color Additional comments: Jaundiced Assessment and Plan (1) Bilateral edema of lower extremity Assessment & Plan: 04/08 to cirrhosis Venous doppler ( Pending official results): F/u echocardiogram Medication/Management: * Lasix 40mg IV daily Status: Acute (2) Anemia Assessment & Plan: 04/08 chronic liver disease H/H: 6.0/17.5 Plans for transfusion of 2 PRBC * Repeat CBC post 2 units PRBC transfusion: 8.1/23.0 * Continue monitor with am labs Occult blood: Negative INR: 1.8 * Given vitamin K X2 doses F/u anemia lab studies: Iron, % saturation, ferritin, reticulocytes, vitamin B12, folate, TIBC * Iron: 31 * TIBC: 210 * % Saturation:13 * Ferritin: 473 * Reticulocyte:8.3 * LDH: 453 * Folate: 11.6 * Vitamin B12: >1,000 Protonix 40mg IV Q12H, (possible GI bled as DDX) Status: Acute (3) Alcoholic cirrhosis of liver with ascites Assessment & Plan: with peripheral edema and jaundice Consultatios: - GI, Dr. Gan---> Help appreciated * management as per recommendation * Plans for EGD to rule out varices - IR for ultrasound guided paracentesis Previous imagin11/28/17 CT abdomen/pelvis 1. Mild dilatation of fluid-filled mid small bowel loops in the right mid abdomen, nonspecific and could be related to nonspecific enteritis, ileus or developing partial small bowel obstruction. 2. Moderate hepatosplenomegaly and fatty liver. Nodular contour of the liver could represent cirrhosis. 11/28/17 Abdomen US Moderate hepatosplenomegaly.Diffuse increased echogenicity in the liver may reflect hepatic steatosis however parenchymal infectious/ inflammatory etiologies cannot be entirely excluded. Clinical and laboratory correlation is advised. Thick gallbladder wall and mild pericholecystic fluid, nonspecific and could be related to primary or secondary etiologies. Suspect 4 mm gallbladder polyp along the anterior wall. No cholelithiasis or biliary dilatation. Current management: * Lasix 40mg IV daily * Aldactone 50mg PO BID * Liquid diet with low salt and fluid restriction Status: Acute (4) Alcohol abuse Assessment & Plan: Thamine 100mg IV daily Folic acid 1mg IV daily Multivitamin 1 tab PO daily Status: Chronic (5) Prophylactic measure Assessment & Plan: GI: Protonix 40mg IV Q12H DVT: SCDs and chemical agent contraindicated due to bilateral edema and acute anemia All plans and management discussed with Dr. Richards Status: Acute <Bernadine Richards - Last Filed: 02/08/18 15:48> Objective - Vital Signs/Intake and Output Vital Signs (last 24 hours): Temp Pulse Resp BP Pulse Ox 98.4 F 72 20 101/64 97 02/08/18 07:00 02/08/18 07:00 02/08/18 07:00 02/08/18 09:00 02/08/18 07:00 Intake and Output: 02/08/18 02/08/18 06:59 18:59 Intake Total 400 Balance 400 - Medications Medications: Current Medications Ferrous Sulfate (Feosol) 325 mg PO BID [facility] Last Admin: 02/08/18 09:01 Dose: 325 mg Folic Acid (Folic Acid) 1 mg PO DAILY [facility] Last Admin: 02/08/18 09:01 Dose: 1 mg Furosemide (Lasix) 40 mg PO DAILY [facility] Last Admin: 02/08/18 09:00 Dose: 40 mg Heparin Sodium (Porcine) (Heparin) 5,000 units SC Q8 [facility] Last Admin: 02/06/18 06:02 Dose: Not Given Pantoprazole Sodium (Protonix Ec Tab) 40 mg PO DAILY [facility] Last Admin: 02/08/18 09:00 Dose: 40 mg Spironolactone (Aldactone) 100 mg PO DAILY [facility] Last Admin: 02/08/18 09:01 Dose: 100 mg Thiamine HCl (Vitamin B1 Tab) 100 mg PO DAILY [facility] Last Admin: 02/08/18 09:01 Dose: 100 mg - Labs Labs: 02/08/18 06:25 02/08/18 06:25 PT 16.9 SECONDS (9.7-12.2) H 02/07/18 07:18 INR 1.5 02/07/18 07:18 APTT 39 SECONDS (21-34) H 02/07/18 07:18 Attending/Attestation - Attestation I have personally seen and examined this patient.: Yes I have fully participated in the care of the patient.: Yes I have reviewed all pertinent clinical information, including history, physical exam and plan: Yes Notes (Text): seen and examined
[2018-01-30 08:15] LABS: INR 1.6; PROTHROMBIN TIME 17.1 SECONDS (9.7-12.2)
[2018-01-30 08:27] LABS: ALB/GLOB RATIO 0.6 (1.0-2.1); ALBUMIN 2.1 g/dL (3.5-5.0); ALT/SGPT 59 U/L (21-72); AST/SGOT 61 U/L (17-59); BLOOD UREA NITROGEN 15 mg/dL (9-20); CALCIUM 7.5 mg/dl (8.6-10.4); GFR NON-AFRICAN AMERICAN > 60; HDL CHOLESTEROL 20 mg/dL (30-70)
[2018-01-30] MEDS ORDERED: Lactated Ringer's 500 ML IV ONE (08:29)
[2018-01-30 08:34] LABS: BASO # 0.1 K/uL (0.0-0.2); BASO % 1.2 % (0.0-2.0); EOS # 0.2 K/uL (0.0-0.7); EOS % 3.8 % (0.0-4.0); HEMOGLOBIN 8.2 g/dL (12.0-18.0); LYMPH # 1.1 K/uL (1.0-4.3); LYMPH % 24.6 % (20.0-40.0); MEAN CORPUSCULAR HEMOGLOBIN 36.5 pg (27.0-31.0); MEAN CORPUSCULAR HGB CONC 34.8 g/dL (33.0-37.0); MEAN PLATELET VOLUME 8.8 fL (7.2-11.7); MONO # 0.5 K/uL (0.0-0.8); MONO % 10.1 % (0.0-10.0); NEUT # 2.7 K/uL (1.8-7.0); NEUT % 60.3 % (50.0-75.0); NRBC % 0.1 % (0.0-2.0); RBC 2.24 Mil/uL (4.40-5.90); RED CELL DISTRIBUTION WIDTH 18.2 % (11.5-14.5); WHITE BLOOD COUNT 4.5 K/uL (4.8-10.8)
[2018-01-30 08:35] LABS: LDL CHOLESTEROL 102 mg/dL (0-129)
[2018-01-30] MEDS ORDERED: Lidocaine Hydrochloride 5 ML INJ ONE (08:35)
[2018-01-30] MEDS ORDERED: Propofol 10 mg/ml Inj (20 ML) ONE (08:35)
--- NOTE | 2018-01-30 09:37 | VASCLAB ---
Date of service: 01/28/2018 PROCEDURE: Lower Extremity Venous Duplex Exam. HISTORY: b/l le edema PRIORS: None. TECHNIQUE: Bilateral common femoral, femoral, popliteal and posterior tibial, peroneal and great saphenous veins were evaluated. Flow was assessed with color Doppler, compressibility, assessment of phasic flow and augmentation response. Report prepared by PAULY Blackwell FINDINGS: RIGHT: 1. Common Femoral Vein: 1.1. Compressibility - Fully compressible: Thrombus - None : Flow - Phasic: Augmentation -Normal: Reflux - None. 2. Femoral Vein: 2.1. Compressibility - Fully compressible: Thrombus - None : Flow - Phasic: Augmentation -Normal: Reflux - None. 3. Popliteal Vein: 3.1. Compressibility - Fully compressible: Thrombus - None : Flow - Phasic: Augmentation -Normal: Reflux - None. 4. Posterior Tibial Vein: 4.1. Compressibility - Fully compressible: Thrombus - None: Flow - Phasic: Augmentation -Normal: Reflux - None. 5. Peroneal Vein: 5.1. Compressibility - Fully compressible: Thrombus - None: Flow - Phasic: Augmentation -Normal: Reflux - None. 6. Great Saphenous Vein: 6.1. Compressibility - Fully compressible: Thrombus - None: Flow - Phasic: Augmentation - Normal: Reflux - None. LEFT: 1. Common Femoral Vein: 1.1. Compressibility - Fully compressible: Thrombus - None: Flow - Phasic: Augmentation -Normal: Reflux - None. 2. Femoral Vein: 2.1. Compressibility - Fully compressible: Thrombus - None: Flow - Phasic: Augmentation -Normal: Reflux - None. 3. Popliteal Vein: 3.1. Compressibility - Fully compressible: Thrombus - None : Flow - Phasic: Augmentation -Normal: Reflux - None. 4. Posterior Tibial Vein: 4.1. Compressibility - Fully compressible: Thrombus - None: Flow - Phasic: Augmentation -Normal: Reflux - None. 5. Peroneal Vein: 5.1. Compressibility - Fully compressible: Thrombus - None: Flow - Phasic: Augmentation -Normal: Reflux - None. 6. Great Saphenous Vein: 6.1. Compressibility - Fully compressible: Thrombus - None: Flow - Phasic: Augmentation - Normal: Reflux - Severe. OTHER FINDINGS: Right: None significant. Left: There was a reflux time of 2.6 seconds noted in the great saphenous vein. IMPRESSION: Right: No evidence of deep or superficial vein thrombosis of the right lower extremity. Normal valve function noted of the right side. Left: No evidence of deep or superficial vein thrombosis of the left lower extremity Severe valvular incompetence (chronic venous insufficiency) of the left common femoral vein.
--- NOTE | 2018-01-30 12:18 | PCM.SURG1 ---
Surgeon's Initial Post Op Note - Surgeon's Notes Surgeon: Driss Alvarado MD Radio Communications Mechanician: NONE Type of Anesthesia: Local Pre-Operative Diagnosis: Ascites Operative Findings: US showed large amount of ascites Post-Operative Diagnosis: Ascites Operation Performed: US guided paracentesis Specimen/Specimens Removed: 5 liters of straw colored fluid Estimated Blood Loss: EBL {In ML}: 0 Blood Products Given: N/A Drains Used: No Drains Post-Op Condition: Fair Date of Surgery/Procedure: 01/30/18 Time of Surgery/Procedure: 11:35
--- NOTE | 2018-01-30 13:00 | US ---
Date of Procedure: 01/30/2018 PROCEDURE: Ultrasound-guided paracentesis, CPT 96179 Medications: 7 cc 1% Lidocaine HISTORY: Ascites, abdominal pain, cirrhosis TECHNIQUE: Following informed consent , the patient was placed supine on the stretcher and the site was marked. A limited abdominal ultrasound was performed that showed a large amount of intra-abdominal fluid. Procedural time out was called and the Pt's abdomen was marked and prepped and draped in the usual sterile fashion. Ultrasound-guided large volume paracentesis performed. A total of 5 liters of straw colored fluid was removed without complication. IMPRESSION: Ultrasound-guided large volume paracentesis.
[2018-01-30] MEDS: Thiamine 100 mg/ml Inj IV SCH (13:18)
[2018-01-30 14:00] LABS: BODY FLUID TYPE PERITONEAL/ASCITES
[2018-01-30] MEDS ORDERED: Albumin Human 25% (12.5 gm/50 ml) IV SCH (14:30)
--- NOTE | 2018-01-30 15:00 | CP.PCM.PN ---
<Magy Solorio - Last Filed: 01/30/18 14:57> Subjective - Date & Time of Evaluation Date of Evaluation: 01/30/18 Time of Evaluation: 14:57 - Subjective Subjective: PGY-1 Medicine Progress Note for Dr. Leong's service Patient seen and examined at bedside. Patient states he has mild discomfort at site of paracentesis. Patient denies fevers, chills, chest pain, sob, n/v, constipation or diarrhea, and dysuria. Objective - Vital Signs/Intake and Output Vital Signs (last 24 hours): Temp Pulse Resp BP Pulse Ox 99.3 F 86 16 119/64 100 01/30/18 08:50 01/30/18 13:18 01/30/18 09:20 01/30/18 13:19 01/30/18 09:20 - Medications Medications: Current Medications Albumin Human (Albumin Human 25% (12.5 Gm/50 Ml)) 12.5 gm IV BID [facility] Stop: 01/30/18 18:01 Ferrous Sulfate (Feosol) 325 mg PO BID [facility] Last Admin: 01/30/18 11:00 Dose: Not Given Furosemide (Lasix) 40 mg IVP BID [facility] Folic Acid 1 mg/ Sodium (Chloride) 100.2 mls @ 60 mls/hr IV DAILY [facility] Last Admin: 01/30/18 11:00 Dose: Not Given Pantoprazole Sodium (Protonix Inj) 40 mg IVP Q12H [facility] Last Admin: 01/30/18 03:45 Dose: 40 mg Spironolactone (Aldactone) 50 mg PO BID [facility] Last Admin: 01/30/18 11:00 Dose: Not Given Thiamine HCl (Vitamin B1 Inj) 100 mg IV DAILY [facility] Last Admin: 01/30/18 13:18 Dose: 100 mg - Labs Labs: 01/30/18 07:58 01/30/18 07:58 PT 17.1 SECONDS (9.7-12.2) H 01/30/18 07:58 INR 1.6 01/30/18 07:58 APTT 35 SECONDS (21-34) H 01/30/18 07:58 - Constitutional Appears: Non-toxic, No Acute Distress - Head Exam Head Exam: NORMAL INSPECTION, NORMOCEPHALIC - Eye Exam Eye Exam: EOMI, Scleral icterus. absent: Conjunctival injection, Nystagmus - Respiratory Exam Respiratory Exam: Clear to Ausculation Bilateral, NORMAL BREATHING PATTERN. absent: Rales, Rhonchi, Wheezes - Cardiovascular Exam Cardiovascular Exam: REGULAR RHYTHM, +S1, +S2. absent: Tachycardia - GI/Abdominal Exam GI & Abdominal Exam: Distended, Soft, Normal Bowel Sounds. absent: Firm, Guarding, Rigid, Tenderness - Extremities Exam Extremities Exam: Normal Inspection - Neurological Exam Neurological Exam: Awake, Oriented x3 - Psychiatric Exam Psychiatric exam: Normal Affect, Normal Mood - Skin Additional comments: Jaundiced Assessment and Plan - Assessment and Plan (Free Text) Assessment: Patient is a 47 yo male w/ past medical history of alcohol abuse and cirrhosis with ascites. Patient has anemia and thrombocytopenia on labs. Patient has had a prior paracentesis about a month ago. Patient had EGD and paracentesis after 2 units of pRBCs given since admission. Patient comfortable today with no complaints. Plan: Cirrhosis with Ascites GI consulted: Dr. Gan- EGD for low Hgb- grade 1 esophageal varices, small hiatal hernia, biopsies taken (continue presents meds, await path results) IR consulted: Dr. Alvarado- 5L of peritoneal fluid drained; fluid studies pending Bilateral pedal edema 2/2 to cirrhosis Hypoalbuminemia- 2 bags of 12.5gm Albumin IV Lasix 40mg IVP bid [facility] Aldactone 50mg po bid Thiamine 100mg IV daily, Folic Acid 1mg IV Anemia Feosol 325mg po bid 2/2 alcohol use Hyponatremia likely secondary to cirrhosis Lasix 40mg IVP bid [facility] CMP in AM 5L of fluid drained via paracentesis PPx GI ppx: Protonix 40mg IVP q12 [facility] DVT ppx: Patient did not tolerate scds due to bilateral edema; no need for AC as patient had drop in Hgb Disposition: Likely discharge tomorrow PGY-1 Magy Solorio Medical Management discussed with Dr. Leong <Praveen Leong - Last Filed: 01/30/18 15:41> Objective - Vital Signs/Intake and Output Vital Signs (last 24 hours): Temp Pulse Resp BP Pulse Ox 99.3 F 86 16 119/64 100 01/30/18 08:50 01/30/18 13:18 01/30/18 09:20 01/30/18 13:19 01/30/18 09:20 - Medications Medications: Current Medications Albumin Human (Albumin Human 25% (12.5 Gm/50 Ml)) 12.5 gm IV BID [facility] Stop: 01/30/18 18:01 Ferrous Sulfate (Feosol) 325 mg PO BID [facility] Last Admin: 01/30/18 11:00 Dose: Not Given Furosemide (Lasix) 40 mg IVP BID [facility] Folic Acid 1 mg/ Sodium (Chloride) 100.2 mls @ 60 mls/hr IV DAILY [facility] Last Admin: 01/30/18 11:00 Dose: Not Given Pantoprazole Sodium (Protonix Inj) 40 mg IVP Q12H [facility] Last Admin: 01/30/18 15:17 Dose: 40 mg Spironolactone (Aldactone) 50 mg PO BID [facility] Last Admin: 01/30/18 11:00 Dose: Not Given Thiamine HCl (Vitamin B1 Inj) 100 mg IV DAILY [facility] Last Admin: 01/30/18 13:18 Dose: 100 mg - Labs Labs: 01/30/18 07:58 01/30/18 07:58 PT 17.1 SECONDS (9.7-12.2) H 01/30/18 07:58 INR 1.6 01/30/18 07:58 APTT 35 SECONDS (21-34) H 01/30/18 07:58 Attending/Attestation - Attestation I have personally seen and examined this patient.: Yes I have fully participated in the care of the patient.: Yes I have reviewed all pertinent clinical information, including history, physical exam and plan: Yes Notes (Text): 01/30/18 15:41 Medical attending: Patient was seen and examined by me, the above note by the medical insurance claims processor and agree with the above by the medical insurance claims processor. Earlier today the patient underwent EGD for further inspection of the low hemoglobin that he was having, reportedly was found to have had a small hiatal hernia as well as esophageal varices. Pathology is currently pending at this moment. He later underwent a paracentesis and had 5 L of fluid removed. Overnight the patient will have IV albumin He remaining on Lasix, Aldactone. Praveen Leong
[2018-01-30 16:05] LABS: BF GROSS APPEARANCE SL CLOUDY (CLEAR); BODY FLUID MONO/MACROPHAGE 1 % (0-0); BODY FLUID TOTAL COUNT 100 (0-0)
[2018-01-30] MEDS: Albumin Human 25% (12.5 gm/50 ml) IV SCH ×2 (17:48→19:41)
--- NOTE | 2018-01-30 21:16 | CARD ---
APPROVED REPORT Date of service: 01/28/2018 EKG Measurement Heart [id number] <Conclusion> Sinus tachycardia Otherwise normal ECG
[2018-01-31 06:51] LABS: EOS # 0.1 K/uL (0.0-0.7); EOS % 2.8 % (0.0-4.0); LYMPH # 1.1 K/uL (1.0-4.3); MEAN CELL VOLUME 103.7 fL (80.0-94.0); MEAN CORPUSCULAR HEMOGLOBIN 36.2 pg (27.0-31.0); MEAN CORPUSCULAR HGB CONC 34.9 g/dL (33.0-37.0); MEAN PLATELET VOLUME 8.3 fL (7.2-11.7); MONO # 0.5 K/uL (0.0-0.8); MONO % 11.7 % (0.0-10.0); NEUT # 2.3 K/uL (1.8-7.0); NEUT % 57.5 % (50.0-75.0); NRBC % 0.1 % (0.0-2.0); RBC 2.22 Mil/uL (4.40-5.90); RED CELL DISTRIBUTION WIDTH 17.5 % (11.5-14.5); WHITE BLOOD COUNT 4.1 K/uL (4.8-10.8)
[2018-01-31 07:36] LABS: ALB/GLOB RATIO 0.7 (1.0-2.1); ALBUMIN 2.1 g/dL (3.5-5.0); ALT/SGPT 54 U/L (21-72); AST/SGOT 53 U/L (17-59); BLOOD UREA NITROGEN 14 mg/dL (9-20); CALCIUM 7.6 mg/dl (8.6-10.4); GFR NON-AFRICAN AMERICAN > 60
--- NOTE | 2018-01-31 10:32 | CP.PCM.PN ---
Subjective - Date & Time of Evaluation Date of Evaluation: 01/31/18 Time of Evaluation: 10:29 - Subjective Subjective: Patient states that the abdomen is softer after the paracentesis, but he has some lower abdominal discomfort. He also reports persistent lower leg swelling. Objective - Vital Signs/Intake and Output Vital Signs (last 24 hours): Temp Pulse Resp BP Pulse Ox 98.0 F 87 20 100/59 L 98 01/31/18 07:40 01/31/18 07:40 01/31/18 07:40 01/31/18 07:40 01/31/18 07:40 - Medications Medications: Current Medications Albumin Human (Albumin Human 25% (12.5 Gm/50 Ml)) 12.5 gm IV Q1H [facility] Stop: 01/31/18 19:01 Ferrous Sulfate (Feosol) 325 mg PO BID [facility] Last Admin: 01/30/18 17:48 Dose: 325 mg Furosemide (Lasix) 40 mg IVP BID [facility] Last Admin: 01/30/18 17:48 Dose: 40 mg Folic Acid 1 mg/ Sodium (Chloride) 100.2 mls @ 60 mls/hr IV DAILY [facility] Last Admin: 01/30/18 11:00 Dose: Not Given Ciprofloxacin (Cipro 400mg/200ml Dsw) 400 mg in 200 mls @ 133 mls/hr IVPB Q12H [facility]; Protocol Pantoprazole Sodium (Protonix Ec Tab) 40 mg PO BID [facility] Spironolactone (Aldactone) 50 mg PO BID [facility] Last Admin: 01/30/18 17:48 Dose: 50 mg Thiamine HCl (Vitamin B1 Inj) 100 mg IV DAILY [facility] Last Admin: 01/30/18 13:18 Dose: 100 mg - Labs Labs: 01/31/18 06:44 01/31/18 06:44 PT 17.1 SECONDS (9.7-12.2) H 01/30/18 07:58 INR 1.6 01/30/18 07:58 APTT 35 SECONDS (21-34) H 01/30/18 07:58 - Constitutional Appears: No Acute Distress - Head Exam Head Exam: ATRAUMATIC, NORMOCEPHALIC - Eye Exam Eye Exam: EOMI, PERRL - Neck Exam Neck Exam: absent: Lymphadenopathy, Thyromegaly - Respiratory Exam Respiratory Exam: NORMAL BREATHING PATTERN. absent: Rales, Rhonchi, Wheezes - Cardiovascular Exam Cardiovascular Exam: REGULAR RHYTHM, +S1, +S2. absent: Gallop, Rubs, Murmur - GI/Abdominal Exam GI & Abdominal Exam: Distended, Soft, Normal Bowel Sounds. absent: Tenderness, Organomegaly - Rectal Exam Rectal Exam: Deferred - Extremities Exam Extremities Exam: Pedal Edema. absent: Calf Tenderness Assessment and Plan (1) Alcoholic cirrhosis of liver with ascites Assessment & Plan: Paracentesis was performed yesterday. Cell count showed 470 WBC, 67% PMN, for a total PMN count of 306, which is sufficient for the diagnosis of SBP. After drawing blood cultures, we will start ciprofloxacin and arrange for albumin 1.5 mg/kg, or 125 mg. Status: Acute
[2018-01-31] MEDS: Pantoprazole 40 mg EC Tab PO SCH ×2 (10:51→17:33)
[2018-01-31] MEDS: Thiamine 100 mg/ml Inj IV SCH (10:52)
[2018-01-31] MEDS: Albumin Human 25% (12.5 gm/50 ml) IV SCH ×11 (11:00→19:40)
--- NOTE | 2018-01-31 13:40 | CP.PCM.PN ---
<Magy Solorio - Last Filed: 01/31/18 13:37> Subjective - Date & Time of Evaluation Date of Evaluation: 01/31/18 Time of Evaluation: 10:30 - Subjective Subjective: PGY-1 Medicine Progress Note for Dr. Leong's service Patient seen and examined at bedside. Patient offers mild discomfort in the lower abdomen area. Patient denies fevers, chills, chest pain, sob, n/v, constipation or diarrhea, and dysuria. Objective - Vital Signs/Intake and Output Vital Signs (last 24 hours): Temp Pulse Resp BP Pulse Ox 98.0 F 87 20 100/59 L 98 01/31/18 07:40 01/31/18 07:40 01/31/18 07:40 01/31/18 07:40 01/31/18 07:40 - Medications Medications: Current Medications Albumin Human (Albumin Human 25% (12.5 Gm/50 Ml)) 12.5 gm IV Q1H [facility] Stop: 01/31/18 20:31 Ferrous Sulfate (Feosol) 325 mg PO BID [facility] Last Admin: 01/31/18 10:51 Dose: 325 mg Furosemide (Lasix) 60 mg IVP BID [facility] Folic Acid 1 mg/ Sodium (Chloride) 100.2 mls @ 60 mls/hr IV DAILY [facility] Last Admin: 01/31/18 12:01 Dose: 60 mls/hr Ciprofloxacin (Cipro 400mg/200ml Dsw) 400 mg in 200 mls @ 133 mls/hr IVPB Q12H [facility]; Protocol Pantoprazole Sodium (Protonix Ec Tab) 40 mg PO BID [facility] Last Admin: 01/31/18 10:51 Dose: 40 mg Spironolactone (Aldactone) 100 mg PO BID [facility] Thiamine HCl (Vitamin B1 Inj) 100 mg IV DAILY [facility] Last Admin: 01/31/18 10:52 Dose: 100 mg - Labs Labs: 01/31/18 06:44 01/31/18 06:44 PT 17.1 SECONDS (9.7-12.2) H 01/30/18 07:58 INR 1.6 01/30/18 07:58 APTT 35 SECONDS (21-34) H 01/30/18 07:58 - Additional Findings Additional findings: - Constitutional Appears: Non-toxic, No Acute Distress - Head Exam Head Exam: NORMAL INSPECTION, NORMOCEPHALIC - Eye Exam Eye Exam: EOMI, Scleral icterus. absent: Conjunctival injection, Nystagmus - Respiratory Exam Respiratory Exam: Clear to Ausculation Bilateral, NORMAL BREATHING PATTERN. absent: Rales, Rhonchi, Wheezes - Cardiovascular Exam Cardiovascular Exam: REGULAR RHYTHM, +S1, +S2. absent: Tachycardia - GI/Abdominal Exam GI & Abdominal Exam: Distended, Soft, Normal Bowel Sounds. absent: Firm, Guarding, Rigid, Tenderness - Extremities Exam Extremities Exam: Normal Inspection - Neurological Exam Neurological Exam: Awake, Oriented x3 - Psychiatric Exam Psychiatric exam: Normal Affect, Normal Mood - Skin Additional comments: Jaundiced Assessment and Plan - Assessment and Plan (Free Text) Assessment: Patient is a 47 yo male w/ past medical history of alcohol abuse and cirrhosis with ascites. Patient has anemia and thrombocytopenia on labs. Patient has had a prior paracentesis about a month ago. Patient had EGD and paracentesis after 2 units of pRBCs given since admission. Patient comfortable today with no complaints. Plan: Cirrhosis with Ascites GI consulted: Dr. Gan- EGD for low Hgb- grade 1 esophageal varices, small hiatal hernia, biopsies taken (continue presents meds, await path results) IR consulted: Dr. Alvarado- 5L of peritoneal fluid drained; fluid studies pending Bilateral pedal edema 2/2 to cirrhosis Hypoalbuminemia- 10 doses of 12.5gm Albumin IV Lasix 60mg IVP bid [facility] Aldactone 100mg po bid Thiamine 100mg IV daily, Folic Acid 1mg IV Ciprofloxacin 400mg IVPB q 12h Anemia Feosol 325mg po bid 2/2 alcohol use Hyponatremia likely secondary to cirrhosis; trending up Lasix 60mg IVP bid [facility] CMP in AM 5L of fluid drained via paracentesis PPx GI ppx: Protonix 40mg IVP q12 [facility] DVT ppx: Patient did not tolerate scds due to bilateral edema; no need for AC as patient had drop in Hgb PGY-1 Magy Solorio Medical Management discussed with Dr. eLong <Praveen Leong - Last Filed: 01/31/18 15:01> Objective - Vital Signs/Intake and Output Vital Signs (last 24 hours): Temp Pulse Resp BP Pulse Ox 98.0 F 87 20 116/68 98 01/31/18 07:40 01/31/18 07:40 01/31/18 07:40 01/31/18 11:00 01/31/18 07:40 - Medications Medications: Current Medications Albumin Human (Albumin Human 25% (12.5 Gm/50 Ml)) 12.5 gm IV Q1H [facility] Stop: 01/31/18 20:31 Last Admin: 01/31/18 11:00 Dose: 12.5 gm Ferrous Sulfate (Feosol) 325 mg PO BID [facility] Last Admin: 01/31/18 10:51 Dose: 325 mg Furosemide (Lasix) 60 mg IVP BID [facility] Folic Acid 1 mg/ Sodium (Chloride) 100.2 mls @ 60 mls/hr IV DAILY [facility] Last Admin: 01/31/18 12:01 Dose: 60 mls/hr Ciprofloxacin (Cipro 400mg/200ml Dsw) 400 mg in 200 mls @ 133 mls/hr IVPB Q12H [facility]; Protocol Last Admin: 01/31/18 13:44 Dose: 133 mls/hr Pantoprazole Sodium (Protonix Ec Tab) 40 mg PO BID [facility] Last Admin: 01/31/18 10:51 Dose: 40 mg Spironolactone (Aldactone) 100 mg PO BID [facility] Thiamine HCl (Vitamin B1 Inj) 100 mg IV DAILY [facility] Last Admin: 01/31/18 10:52 Dose: 100 mg - Labs Labs: 01/31/18 06:44 01/31/18 06:44 PT 17.1 SECONDS (9.7-12.2) H 01/30/18 07:58 INR 1.6 01/30/18 07:58 APTT 35 SECONDS (21-34) H 01/30/18 07:58 Attending/Attestation - Attestation I have personally seen and examined this patient.: Yes I have fully participated in the care of the patient.: Yes I have reviewed all pertinent clinical information, including history, physical exam and plan: Yes Notes (Text): 01/31/18 14:54 Medical attending: Patient was seen and examined by me with the medical accounting clerk Reviewed the above note by the resident as well. Patient reports no fever or chills, denies abdominal pain, reports breathing seemed easier than before. Per discussion with GI the paracentesis cell count shows concerning findings of large amount of neutrophils and WBCs and he will need to be on IV abx for SBP He is now on Cipro and will also be getting large amounts of IV albumin as well. Praveen Leong
[2018-01-31] MEDS: Ciprofloxacin 400mg/200ml D5W 400 MG/200 ML BAG IVPB SCH ×2 (13:44→22:38)
[2018-02-01 06:57] LABS: BASO % 1.3 % (0.0-2.0); EOS # 0.1 K/uL (0.0-0.7); EOS % 2.6 % (0.0-4.0); HEMOGLOBIN 7.3 g/dL (12.0-18.0); LYMPH # 0.9 K/uL (1.0-4.3); MEAN CELL VOLUME 103.7 fL (80.0-94.0); MEAN CORPUSCULAR HEMOGLOBIN 36.1 pg (27.0-31.0); MEAN CORPUSCULAR HGB CONC 34.8 g/dL (33.0-37.0); MEAN PLATELET VOLUME 8.1 fL (7.2-11.7); MONO # 0.4 K/uL (0.0-0.8); MONO % 10.8 % (0.0-10.0); NEUT # 2.3 K/uL (1.8-7.0); NEUT % 61.3 % (50.0-75.0); NRBC % 0.1 % (0.0-2.0); RBC 2.01 Mil/uL (4.40-5.90); RED CELL DISTRIBUTION WIDTH 17.7 % (11.5-14.5); WHITE BLOOD COUNT 3.7 K/uL (4.8-10.8)
[2018-02-01 07:31] LABS: ALB/GLOB RATIO 0.9 (1.0-2.1); ALBUMIN 2.6 g/dL (3.5-5.0); ALT/SGPT 46 U/L (21-72); AST/SGOT 36 U/L (17-59); BLOOD UREA NITROGEN 15 mg/dL (9-20); CALCIUM 7.8 mg/dl (8.6-10.4); GFR NON-AFRICAN AMERICAN > 60
[2018-02-01] MEDS: Thiamine 100 mg/ml Inj IV SCH (09:18)
[2018-02-01] MEDS: Pantoprazole 40 mg EC Tab PO SCH ×2 (09:19→17:32)
[2018-02-01] MEDS: Ciprofloxacin 400mg/200ml D5W 400 MG/200 ML BAG IVPB SCH ×2 (10:37→21:59)
--- NOTE | 2018-02-01 14:49 | CP.PCM.PN ---
<Magy Solorio - Last Filed: 02/01/18 14:42> Subjective - Date & Time of Evaluation Date of Evaluation: 02/01/18 Time of Evaluation: 11:00 - Subjective Subjective: PGY-1 Medicine Progress note for Dr. Leong's service Patient was seen and examined at bedside today. Patient complains of mild discomfort in the lower abdomen area. Patient denies any fever, headache, chest pain, palpitation, shortness of breath, n/v, diarrhea, abdominal pain or dysuria. Objective - Vital Signs/Intake and Output Vital Signs (last 24 hours): Temp Pulse Resp BP Pulse Ox 98.0 F 92 H 20 115/53 L 98 02/01/18 07:00 02/01/18 11:42 02/01/18 07:00 02/01/18 10:36 02/01/18 07:00 - Medications Medications: Current Medications Ferrous Sulfate (Feosol) 325 mg PO BID [facility] Last Admin: 02/01/18 09:19 Dose: 325 mg Folic Acid (Folic Acid) 1 mg PO DAILY [facility] Last Admin: 02/01/18 10:36 Dose: 1 mg Furosemide (Lasix) 40 mg PO DAILY [facility] Last Admin: 02/01/18 10:36 Dose: 40 mg Folic Acid 1 mg/ Sodium (Chloride) 100.2 mls @ 60 mls/hr IV DAILY [facility] Last Admin: 01/31/18 12:01 Dose: 60 mls/hr Ciprofloxacin (Cipro 400mg/200ml Dsw) 400 mg in 200 mls @ 133 mls/hr IVPB Q12H [facility]; Protocol Last Admin: 02/01/18 10:37 Dose: 133 mls/hr Pantoprazole Sodium (Protonix Ec Tab) 40 mg PO BID [facility] Last Admin: 02/01/18 09:19 Dose: 40 mg Spironolactone (Aldactone) 100 mg PO BID [facility] Last Admin: 02/01/18 09:18 Dose: 100 mg Thiamine HCl (Vitamin B1 Inj) 100 mg IV DAILY [facility] Last Admin: 02/01/18 09:18 Dose: 100 mg - Labs Labs: 02/01/18 06:51 02/01/18 06:51 PT 17.1 SECONDS (9.7-12.2) H 01/30/18 07:58 INR 1.6 01/30/18 07:58 APTT 35 SECONDS (21-34) H 01/30/18 07:58 - Additional Findings Additional findings: - Constitutional Appears: Non-toxic, No Acute Distress - Head Exam Head Exam: NORMAL INSPECTION, NORMOCEPHALIC - Eye Exam Eye Exam: EOMI, Scleral icterus. absent: Conjunctival injection, Nystagmus - Respiratory Exam Respiratory Exam: Clear to Ausculation Bilateral, NORMAL BREATHING PATTERN. absent: Rales, Rhonchi, Wheezes - Cardiovascular Exam Cardiovascular Exam: REGULAR RHYTHM, +S1, +S2. absent: Tachycardia - GI/Abdominal Exam GI & Abdominal Exam: Distended, Soft, Normal Bowel Sounds. absent: Firm, Guarding, Rigid, Tenderness - Extremities Exam Extremities Exam: Normal Inspection, Pedal Edema - Neurological Exam Neurological Exam: Awake, Oriented x3 - Psychiatric Exam Psychiatric exam: Normal Affect, Normal Mood - Skin Additional comments: Jaundiced Assessment and Plan - Assessment and Plan (Free Text) Assessment: Patient is a 48 yo male w/ past medical history of alcohol abuse and cirrhosis with ascites. Patient has anemia and thrombocytopenia on labs. Patient has had a prior paracentesis about a month ago. Patient had EGD and paracentesis after 2 units of pRBCs given since admission. Plan: Cirrhosis with Ascites GI consulted: Dr. Gan- EGD for low Hgb- grade 1 esophageal varices, small hiatal hernia, biopsies taken (continue presents meds, await path results) IR consulted: Dr. Alvarado- 5L of peritoneal fluid drained; fluid studies pending Bilateral pedal edema 2/2 to cirrhosis Lasix 40mg PO qd [facility] Aldactone 100mg po bid Thiamine 100mg IV daily, Folic Acid 1mg PO Ciprofloxacin 400mg IVPB q 12h currently all cultures have been negative so far, pending full cultures results after 72 hours, possible re-tap for fluid overload as per Dr. Gan's recommendation. Anemia Feosol 325mg po bid 2/2 alcohol use Hyponatremia likely secondary to cirrhosis; trending up Lasix 40mg PO qd [facility] CMP in AM 5L of fluid drained via paracentesis PPx GI ppx: Protonix 40mg PO BID [facility] DVT ppx: Patient did not tolerate scds due to bilateral edema; no need for AC as patient had drop in Hgb PGY-1 Magy Solorio Medical Management discussed with Dr. Leong <Leong,Peter H - Last Filed: 02/01/18 18:01> Objective - Vital Signs/Intake and Output Vital Signs (last 24 hours): Temp Pulse Resp BP Pulse Ox 98.6 F 96 H 20 115/66 99 02/01/18 15:00 02/01/18 15:00 02/01/18 15:00 02/01/18 15:00 02/01/18 15:00 - Medications Medications: Current Medications Ferrous Sulfate (Feosol) 325 mg PO BID [facility] Last Admin: 02/01/18 17:31 Dose: 325 mg Folic Acid (Folic Acid) 1 mg PO DAILY [facility] Last Admin: 02/01/18 10:36 Dose: 1 mg Furosemide (Lasix) 40 mg PO DAILY [facility] Last Admin: 02/01/18 10:36 Dose: 40 mg Folic Acid 1 mg/ Sodium (Chloride) 100.2 mls @ 60 mls/hr IV DAILY [facility] Last Admin: 01/31/18 12:01 Dose: 60 mls/hr Ciprofloxacin (Cipro 400mg/200ml Dsw) 400 mg in 200 mls @ 133 mls/hr IVPB Q12H [facility]; Protocol Last Admin: 02/01/18 10:37 Dose: 133 mls/hr Pantoprazole Sodium (Protonix Ec Tab) 40 mg PO BID [facility] Last Admin: 02/01/18 17:32 Dose: 40 mg Spironolactone (Aldactone) 100 mg PO BID [facility] Last Admin: 02/01/18 17:31 Dose: 100 mg Thiamine HCl (Vitamin B1 Tab) 100 mg PO DAILY [facility] - Labs Labs: 02/01/18 06:51 02/01/18 06:51 PT 17.1 SECONDS (9.7-12.2) H 01/30/18 07:58 INR 1.6 01/30/18 07:58 APTT 35 SECONDS (21-34) H 01/30/18 07:58 Attending/Attestation - Attestation I have personally seen and examined this patient.: Yes I have fully participated in the care of the patient.: Yes I have reviewed all pertinent clinical information, including history, physical exam and plan: Yes Notes (Text): 02/01/18 17:58 Medical attending: Patient was seen and examined by me. Reviewed the above note by the resident and agree with the above. The patient was not in any acute distress when I came and saw him with the residents. He reports that the swelling in the lower extremity was slightly less than previous. The patient is urinating a lot he says - he has been getting lasix as well as albumin So far the blood and abdominal peritoneal fluid cultures are negative. As mentioned previously there is concern for SBP due to the amount of neutrophils seen in the peritoneal fluid when he had paracentesis His Hgb is lower today - ernesto continue to monitor in case he later needs PRBC Praveen Leong
[2018-02-02 06:53] LABS: BASO % 1.1 % (0.0-2.0); EOS # 0.1 K/uL (0.0-0.7); EOS % 3.2 % (0.0-4.0); HEMOGLOBIN 7.5 g/dL (12.0-18.0); LYMPH # 1.1 K/uL (1.0-4.3); LYMPH % 27.1 % (20.0-40.0); MEAN CELL VOLUME 103.9 fL (80.0-94.0); MEAN CORPUSCULAR HEMOGLOBIN 35.7 pg (27.0-31.0); MEAN CORPUSCULAR HGB CONC 34.4 g/dL (33.0-37.0); MEAN PLATELET VOLUME 8.3 fL (7.2-11.7); MONO # 0.4 K/uL (0.0-0.8); MONO % 8.7 % (0.0-10.0); NEUT # 2.5 K/uL (1.8-7.0); NEUT % 59.9 % (50.0-75.0); RBC 2.1 Mil/uL (4.40-5.90); RED CELL DISTRIBUTION WIDTH 17.3 % (11.5-14.5); WHITE BLOOD COUNT 4.1 K/uL (4.8-10.8)
[2018-02-02 07:49] LABS: ALB/GLOB RATIO 0.9 (1.0-2.1); ALBUMIN 2.5 g/dL (3.5-5.0); ALT/SGPT 44 U/L (21-72); AST/SGOT 39 U/L (17-59); BLOOD UREA NITROGEN 12 mg/dL (9-20); CALCIUM 7.9 mg/dl (8.6-10.4); GFR NON-AFRICAN AMERICAN > 60
[2018-02-02] MEDS: Pantoprazole 40 mg EC Tab PO SCH ×2 (09:07→17:29)
[2018-02-02] MEDS: Ciprofloxacin 400mg/200ml D5W 400 MG/200 ML BAG IVPB SCH ×2 (11:26→22:58)
[2018-02-02] MEDS ORDERED: Albumin Human 25% (12.5 gm/50 ml) IV SCH (14:30)
--- NOTE | 2018-02-02 14:59 | CP.PCM.PN ---
<Magy Solorio - Last Filed: 02/02/18 14:59> Subjective - Date & Time of Evaluation Date of Evaluation: 02/02/18 Time of Evaluation: 11:00 - Subjective Subjective: PGY-1 Medicine Progress note for Dr. Leong's service Patient was seen and examined at bedside today. Patient complains of mild discomfort in the lower abdomen area. Patient states his leg swelling has decreased significantly. Patient denies any fever, headache, chest pain, palpitation, shortness of breath, n/v, diarrhea, abdominal pain or dysuria. Objective - Vital Signs/Intake and Output Vital Signs (last 24 hours): Temp Pulse Resp BP Pulse Ox 98.9 F 71 20 111/60 97 02/02/18 07:00 02/02/18 07:00 02/02/18 07:00 02/02/18 09:08 02/02/18 07:00 Intake and Output: 02/02/18 02/02/18 06:59 18:59 Intake Total 440 Output Total 150 Balance 290 - Medications Medications: Current Medications Albumin Human (Albumin Human 25% (12.5 Gm/50 Ml)) 12.5 gm IV Q1H [facility] Stop: 02/02/18 19:31 Ferrous Sulfate (Feosol) 325 mg PO BID [facility] Last Admin: 02/02/18 09:08 Dose: 325 mg Folic Acid (Folic Acid) 1 mg PO DAILY [facility] Last Admin: 02/02/18 09:08 Dose: 1 mg Furosemide (Lasix) 40 mg PO DAILY [facility] Last Admin: 02/02/18 09:08 Dose: 40 mg Folic Acid 1 mg/ Sodium (Chloride) 100.2 mls @ 60 mls/hr IV DAILY [facility] Last Admin: 01/31/18 12:01 Dose: 60 mls/hr Ciprofloxacin (Cipro 400mg/200ml Dsw) 400 mg in 200 mls @ 133 mls/hr IVPB Q12H [facility]; Protocol Last Admin: 02/02/18 11:26 Dose: 133 mls/hr Pantoprazole Sodium (Protonix Ec Tab) 40 mg PO BID [facility] Last Admin: 02/02/18 09:07 Dose: 40 mg Spironolactone (Aldactone) 100 mg PO DAILY [facility] Thiamine HCl (Vitamin B1 Tab) 100 mg PO DAILY [facility] Last Admin: 02/02/18 09:08 Dose: 100 mg - Labs Labs: 11/29/18 06:44 02/02/18 06:44 PT 17.1 SECONDS (9.7-12.2) H 01/30/18 07:58 INR 1.6 01/30/18 07:58 APTT 35 SECONDS (21-34) H 01/30/18 07:58 - Additional Findings Additional findings: - Constitutional Appears: Non-toxic, No Acute Distress - Head Exam Head Exam: NORMAL INSPECTION, NORMOCEPHALIC - Eye Exam Eye Exam: EOMI, Scleral icterus. absent: Conjunctival injection, Nystagmus - Respiratory Exam Respiratory Exam: Clear to Ausculation Bilateral, NORMAL BREATHING PATTERN. absent: Rales, Rhonchi, Wheezes - Cardiovascular Exam Cardiovascular Exam: REGULAR RHYTHM, +S1, +S2. absent: Tachycardia - GI/Abdominal Exam GI & Abdominal Exam: Distended, Soft, Normal Bowel Sounds, Suprapubic tenderness. absent: Firm, Guarding, Rigid - Extremities Exam Extremities Exam: Normal Inspection, Pedal Edema - Neurological Exam Neurological Exam: Awake, Oriented x3 - Psychiatric Exam Psychiatric exam: Normal Affect, Normal Mood - Skin Additional comments: Jaundiced Assessment and Plan - Assessment and Plan (Free Text) Assessment: Patient is a 48 yo male w/ past medical history of alcohol abuse and cirrhosis with ascites. Patient has anemia and thrombocytopenia on labs. Patient has had a prior paracentesis about a month ago. Patient had EGD and paracentesis after 2 units of pRBCs given since admission. GI consulted for paracentesis. Multiple albumin doses were given. Plan: Cirrhosis with Ascites GI consulted: Dr. Gan- EGD for low Hgb- grade 1 esophageal varices, small hiatal hernia, biopsies taken (continue presents meds, await path results) IR consulted: Dr. Alvarado- 5L of peritoneal fluid drained; fluid studies pending Bilateral pedal edema 2/2 to cirrhosis Lasix 40mg PO qd [facility] Aldactone 100mg po bid Thiamine 100mg IV daily, Folic Acid 1mg PO Ciprofloxacin 400mg IVPB q 12h Albumin x 6 doses currently all cultures have been negative so far, pending full cultures results after 72 hours, possible re-tap for fluid overload as per Dr. Gan's recommendation. Anemia Feosol 325mg po bid 2/2 alcohol use Hyponatremia likely secondary to cirrhosis; trending up Lasix 40mg PO qd [facility] CMP in AM 5L of fluid drained via paracentesis PPx GI ppx: Protonix 40mg PO BID [facility] DVT ppx: Patient did not tolerate scds due to bilateral edema; no need for AC as patient had drop in Hgb PGY-1 Magy Solorio Medical Management discussed with Dr. Leong <Praveen Leong H - Last Filed: 02/02/18 18:56> Objective - Vital Signs/Intake and Output Vital Signs (last 24 hours): Temp Pulse Resp BP Pulse Ox 97.2 F L 93 H 20 103/52 L 98 02/02/18 15:00 02/02/18 16:00 02/02/18 15:00 02/02/18 15:00 02/02/18 15:00 Intake and Output: 02/02/18 02/02/18 06:59 18:59 Intake Total 440 730 Output Total 150 Balance 290 730 - Medications Medications: Current Medications Albumin Human (Albumin Human 25% (12.5 Gm/50 Ml)) 12.5 gm IV Q1H [facility] Stop: 02/02/18 22:01 Last Admin: 02/02/18 18:46 Dose: 12.5 gm Ferrous Sulfate (Feosol) 325 mg PO BID [facility] Last Admin: 02/02/18 17:29 Dose: 325 mg Folic Acid (Folic Acid) 1 mg PO DAILY [facility] Last Admin: 02/02/18 09:08 Dose: 1 mg Furosemide (Lasix) 40 mg PO DAILY [facility] Last Admin: 02/02/18 09:08 Dose: 40 mg Folic Acid 1 mg/ Sodium (Chloride) 100.2 mls @ 60 mls/hr IV DAILY [facility] Last Admin: 01/31/18 12:01 Dose: 60 mls/hr Ciprofloxacin (Cipro 400mg/200ml Dsw) 400 mg in 200 mls @ 133 mls/hr IVPB Q12H [facility]; Protocol Last Admin: 02/02/18 11:26 Dose: 133 mls/hr Pantoprazole Sodium (Protonix Ec Tab) 40 mg PO BID [facility] Last Admin: 02/02/18 17:29 Dose: 40 mg Spironolactone (Aldactone) 100 mg PO DAILY [facility] Thiamine HCl (Vitamin B1 Tab) 100 mg PO DAILY [facility] Last Admin: 02/02/18 09:08 Dose: 100 mg - Labs Labs: 02/02/18 06:44 02/02/18 06:44 PT 17.1 SECONDS (9.7-12.2) H 01/30/18 07:58 INR 1.6 01/30/18 07:58 APTT 35 SECONDS (21-34) H 01/30/18 07:58 Attending/Attestation - Attestation I have personally seen and examined this patient.: Yes I have fully participated in the care of the patient.: Yes I have reviewed all pertinent clinical information, including history, physical exam and plan: Yes Notes (Text): 02/02/18 18:50 Medical attending: Patient was seen and examined by me. Agree with the above note by the resident The patient was not in any acute distress when we came and saw him. He denied fevers, denied chills, and is urinating a lot. With a post secondary professional he explains to us that the lower extremity swelling in foot and ankles has decreased substantially. On exam he still has distended abdomen with fluid wave shift, however soft and decreased from previous. No withdrawl symptoms from alcohol when we saw and examined him. Praveen Leong
[2018-02-02] MEDS: Albumin Human 25% (12.5 gm/50 ml) IV SCH ×6 (17:48→22:57)
[2018-02-03 06:33] LABS: BASO % 1.1 % (0.0-2.0); EOS # 0.1 K/uL (0.0-0.7); EOS % 3.1 % (0.0-4.0); HEMOGLOBIN 7.3 g/dL (12.0-18.0); LYMPH % 27.5 % (20.0-40.0); MEAN CELL VOLUME 103.7 fL (80.0-94.0); MEAN CORPUSCULAR HEMOGLOBIN 36.3 pg (27.0-31.0); MEAN PLATELET VOLUME 8.3 fL (7.2-11.7); MONO # 0.3 K/uL (0.0-0.8); MONO % 8.8 % (0.0-10.0); NEUT # 2.2 K/uL (1.8-7.0); NEUT % 59.5 % (50.0-75.0); NRBC % 0.1 % (0.0-2.0); RBC 2.01 Mil/uL (4.40-5.90); RED CELL DISTRIBUTION WIDTH 16.9 % (11.5-14.5); WHITE BLOOD COUNT 3.7 K/uL (4.8-10.8)
[2018-02-03 07:50] LABS: ALBUMIN 2.8 g/dL (3.5-5.0); ALT/SGPT 37 U/L (21-72); AST/SGOT 32 U/L (17-59); BLOOD UREA NITROGEN 9 mg/dL (9-20); CALCIUM 8.1 mg/dl (8.6-10.4); GFR NON-AFRICAN AMERICAN > 60
[2018-02-03] MEDS: Pantoprazole 40 mg EC Tab PO SCH ×2 (10:44→17:52)
[2018-02-03] MEDS: Ciprofloxacin 400mg/200ml D5W 400 MG/200 ML BAG IVPB SCH ×2 (11:25→14:33)
--- NOTE | 2018-02-03 13:41 | CP.PCM.PN ---
Subjective - Date & Time of Evaluation Date of Evaluation: 02/03/18 Time of Evaluation: 10:30 - Subjective Subjective: PGY-1 Medicine Progress Note for Dr. Leong's service Patient seen and examined at bedside. Patient offers no acute complaints. Patient denies fevers, chills, chest pain, sob, n/v, constipation or diarrhea, and dysuria. Objective - Vital Signs/Intake and Output Vital Signs (last 24 hours): Temp Pulse Resp BP Pulse Ox 99.0 F 102 H 18 104/61 97 02/03/18 07:00 02/03/18 07:00 02/03/18 07:00 02/03/18 10:45 02/03/18 07:00 Intake and Output: 02/03/18 02/03/18 06:59 18:59 Intake Total 620 Output Total 600 Balance 20 - Medications Medications: Current Medications Ferrous Sulfate (Feosol) 325 mg PO BID [facility] Last Admin: 02/03/18 10:49 Dose: 325 mg Folic Acid (Folic Acid) 1 mg PO DAILY [facility] Last Admin: 02/03/18 10:44 Dose: 1 mg Furosemide (Lasix) 40 mg PO DAILY [facility] Last Admin: 02/03/18 10:45 Dose: 40 mg Folic Acid 1 mg/ Sodium (Chloride) 100.2 mls @ 60 mls/hr IV DAILY [facility] Last Admin: 01/31/18 12:01 Dose: 60 mls/hr Ciprofloxacin (Cipro 400mg/200ml Dsw) 400 mg in 200 mls @ 133 mls/hr IVPB Q12H [facility]; Protocol Pantoprazole Sodium (Protonix Ec Tab) 40 mg PO BID [facility] Last Admin: 02/03/18 10:44 Dose: 40 mg Spironolactone (Aldactone) 100 mg PO DAILY [facility] Last Admin: 02/03/18 10:44 Dose: 100 mg Thiamine HCl (Vitamin B1 Tab) 100 mg PO DAILY [facility] Last Admin: 02/03/18 10:44 Dose: 100 mg - Labs Labs: 02/03/18 06:23 02/03/18 06:24 PT 17.1 SECONDS (9.7-12.2) H 01/30/18 07:58 INR 1.6 01/30/18 07:58 APTT 35 SECONDS (21-34) H 01/30/18 07:58 - Additional Findings Additional findings: - Constitutional Appears: Non-toxic, No Acute Distress - Head Exam Head Exam: NORMAL INSPECTION, NORMOCEPHALIC - Eye Exam Eye Exam: EOMI, Scleral icterus. absent: Conjunctival injection, Nystagmus - Respiratory Exam Respiratory Exam: Clear to Ausculation Bilateral, NORMAL BREATHING PATTERN. abs ent: Rales, Rhonchi, Wheezes - Cardiovascular Exam Cardiovascular Exam: REGULAR RHYTHM, +S1, +S2. absent: Tachycardia - GI/Abdominal Exam GI & Abdominal Exam: Distended, Soft, Normal Bowel Sounds, Suprapubic tenderness. absent: Firm, Guarding, Rigid - Extremities Exam Extremities Exam: Normal Inspection, Pedal Edema - Neurological Exam Neurological Exam: Awake, Oriented x3 - Psychiatric Exam Psychiatric exam: Normal Affect, Normal Mood - Skin Additional comments: Jaundiced Assessment and Plan - Assessment and Plan (Free Text) Assessment: Patient is a 48 yo male w/ past medical history of alcohol abuse and cirrhosis with ascites. Patient has anemia and thrombocytopenia on labs. Patient has had a prior paracentesis about a month ago. Patient had EGD and paracentesis after 2 units of pRBCs given since admission. GI consulted for paracentesis. Multiple albumin doses were given. Plan for repeat paracentesis is underway likely to happen on Tuesday with cell count/diff. If elevated patient will require outpatient oral antibiotics. Plan: Cirrhosis with Ascites GI consulted: Dr. Gan- EGD for low Hgb- grade 1 esophageal varices, small hiatal hernia, biopsies taken (continue presents meds, await path results) IR consulted: Dr. Alvarado- 5L of peritoneal fluid drained; fluid studies pending Bilateral pedal edema 2/2 to cirrhosis Lasix 40mg PO qd [facility] Aldactone 100mg po bid Thiamine 100mg IV daily, Folic Acid 1mg PO Ciprofloxacin 400mg IVPB q 12h Albumin x 6 doses Requires another paracentesis as per Dr. Gan. Dr. Alvarado was spoken to and he stated that he would do procedure next week. Anemia Feosol 325mg po bid 2/2 alcohol use Hyponatremia likely secondary to cirrhosis; trending up Lasix 40mg PO qd ir[facility] CMP in AM 5L of fluid drained via paracentesis PPx GI ppx: Protonix 40mg PO BID [facility] DVT ppx: Hgb has been stable; Restarted Heparin 5000 units sc q8h PGY-1 Madaser Osmin Medical Management discussed with Dr. Leong
--- NOTE | 2018-02-03 18:42 | CP.PCM.PN ---
Subjective - Date & Time of Evaluation Date of Evaluation: 02/03/18 Time of Evaluation: 18:38 - Subjective Subjective: Patient denies having abdominal pain today. Objective - Vital Signs/Intake and Output Vital Signs (last 24 hours): Temp Pulse Resp BP Pulse Ox 98 F 114 H 20 127/72 97 02/03/18 15:48 02/03/18 15:48 02/03/18 15:48 02/03/18 15:48 02/03/18 15:48 Intake and Output: 02/03/18 02/03/18 06:59 18:59 Intake Total 620 Output Total 600 Balance 20 - Medications Medications: Current Medications Ferrous Sulfate (Feosol) 325 mg PO BID [facility] Last Admin: 02/03/18 17:52 Dose: 325 mg Folic Acid (Folic Acid) 1 mg PO DAILY [facility] Last Admin: 02/03/18 10:44 Dose: 1 mg Furosemide (Lasix) 40 mg PO DAILY [facility] Last Admin: 02/03/18 10:45 Dose: 40 mg Heparin Sodium (Porcine) (Heparin) 5,000 units SC Q8 [facility] Last Admin: 02/03/18 14:33 Dose: 5,000 units Folic Acid 1 mg/ Sodium (Chloride) 100.2 mls @ 60 mls/hr IV DAILY [facility] Last Admin: 01/31/18 12:01 Dose: 60 mls/hr Ciprofloxacin (Cipro 400mg/200ml Dsw) 400 mg in 200 mls @ 133 mls/hr IVPB Q12H [facility]; Protocol Last Admin: 02/03/18 14:33 Dose: Not Given Pantoprazole Sodium (Protonix Ec Tab) 40 mg PO BID [facility] Last Admin: 02/03/18 17:52 Dose: 40 mg Spironolactone (Aldactone) 100 mg PO DAILY [facility] Last Admin: 02/03/18 10:44 Dose: 100 mg Thiamine HCl (Vitamin B1 Tab) 100 mg PO DAILY [facility] Last Admin: 02/03/18 10:44 Dose: 100 mg - Labs Labs: 02/03/18 06:23 02/03/18 06:24 PT 17.1 SECONDS (9.7-12.2) H 01/30/18 07:58 INR 1.6 01/30/18 07:58 APTT 35 SECONDS (21-34) H 01/30/18 07:58 - Constitutional Appears: No Acute Distress - Head Exam Head Exam: ATRAUMATIC, NORMOCEPHALIC - Eye Exam Eye Exam: EOMI, PERRL - Neck Exam Neck Exam: absent: Lymphadenopathy, Thyromegaly - Respiratory Exam Respiratory Exam: NORMAL BREATHING PATTERN. absent: Rales, Rhonchi, Wheezes - Cardiovascular Exam Cardiovascular Exam: REGULAR RHYTHM, +S1, +S2. absent: Gallop, Rubs, Murmur - GI/Abdominal Exam GI & Abdominal Exam: Distended, Soft, Normal Bowel Sounds. absent: Tenderness, Organomegaly - Rectal Exam Rectal Exam: Deferred - Extremities Exam Extremities Exam: absent: Calf Tenderness, Pedal Edema Assessment and Plan (1) Alcoholic cirrhosis of liver with ascites Assessment & Plan: Abdominal pain has resolved. The leg swelling is much less. The LFTs are now normal except for TBILI 3.1. Since he had pain for several days, the ascitic fluid WBC count and differential should be rechecked to determine if a short course of antibiotics is appropriate: if PMN count drops below 250, antibiotics can be stopped. Status: Acute
--- NOTE | 2018-02-04 00:31 | CP.PCM.PN ---
<Brian Aguilar - Last Filed: 02/04/18 00:30> Subjective - Date & Time of Evaluation Date of Evaluation: 02/04/18 Time of Evaluation: 00:30 - Subjective Subjective: Hospitalist Service Pt seen and examined at bedside, no acute events overnight reported, denies cp fc nv sob Objective - Vital Signs/Intake and Output Vital Signs (last 24 hours): Temp Pulse Resp BP Pulse Ox 98 F 114 H 20 127/72 97 02/03/18 15:48 02/03/18 15:48 02/03/18 15:48 02/03/18 15:48 02/03/18 15:48 - Medications Medications: Current Medications Ferrous Sulfate (Feosol) 325 mg PO BID [facility] Last Admin: 02/03/18 17:52 Dose: 325 mg Folic Acid (Folic Acid) 1 mg PO DAILY [facility] Last Admin: 02/03/18 10:44 Dose: 1 mg Furosemide (Lasix) 40 mg PO DAILY [facility] Last Admin: 02/03/18 10:45 Dose: 40 mg Heparin Sodium (Porcine) (Heparin) 5,000 units SC Q8 [facility] Last Admin: 02/03/18 22:25 Dose: 5,000 units Folic Acid 1 mg/ Sodium (Chloride) 100.2 mls @ 60 mls/hr IV DAILY [facility] Last Admin: 01/31/18 12:01 Dose: 60 mls/hr Ciprofloxacin (Cipro 400mg/200ml Dsw) 400 mg in 200 mls @ 133 mls/hr IVPB Q12H [facility]; Protocol Last Admin: 02/03/18 14:33 Dose: Not Given Pantoprazole Sodium (Protonix Ec Tab) 40 mg PO BID [facility] Last Admin: 02/03/18 17:52 Dose: 40 mg Spironolactone (Aldactone) 100 mg PO DAILY [facility] Last Admin: 02/03/18 10:44 Dose: 100 mg Thiamine HCl (Vitamin B1 Tab) 100 mg PO DAILY [facility] Last Admin: 02/03/18 10:44 Dose: 100 mg - Labs Labs: 02/03/18 06:23 02/03/18 06:24 PT 17.1 SECONDS (9.7-12.2) H 01/30/18 07:58 INR 1.6 01/30/18 07:58 APTT 35 SECONDS (21-34) H 01/30/18 07:58 - Additional Findings Additional findings: - Constitutional Appears: Non-toxic, No Acute Distress - Head Exam Head Exam: NORMAL INSPECTION, NORMOCEPHALIC - Eye Exam Eye Exam: EOMI, Scleral icterus. absent: Conjunctival injection, Nystagmus - Respiratory Exam Respiratory Exam: Clear to Ausculation Bilateral, NORMAL BREATHING PATTERN. absent: Rales, Rhonchi, Wheezes - Cardiovascular Exam Cardiovascular Exam: REGULAR RHYTHM, +S1, +S2. absent: Tachycardia - GI/Abdominal Exam GI & Abdominal Exam: Distended, Soft, Normal Bowel Sounds, Suprapubic tenderness. absent: Firm, Guarding, Rigid - Extremities Exam Extremities Exam: Normal Inspection, Pedal Edema - Neurological Exam Neurological Exam: Awake, Oriented x3 - Psychiatric Exam Psychiatric exam: Normal Affect, Normal Mood - Skin Additional comments: Jaundiced Assessment and Plan - Assessment and Plan (Free Text) Assessment: Patient is a 48 yo male w/ past medical history of alcohol abuse and cirrhosis with ascites. Patient has anemia and thrombocytopenia on labs. Patient has had a prior paracentesis about a month ago. Patient had EGD and paracentesis after 2 units of pRBCs given since admission. GI consulted for paracentesis. Multiple albumin doses were given. Plan for repeat paracentesis is underway likely to happen on Tuesday with cell count/diff. If elevated patient will require outpatient oral antibiotics. Plan: Cirrhosis with Ascites GI consulted: Dr. Gan- EGD for low Hgb- grade 1 esophageal varices, small hiatal hernia, biopsies taken (continue presents meds, await path results) IR consulted: Dr. Alvarado- 5L of peritoneal fluid drained; fluid studies pending Bilateral pedal edema 2/2 to cirrhosis Lasix 40mg PO qd [facility] Aldactone 100mg po bid Thiamine 100mg IV daily, Folic Acid 1mg PO Ciprofloxacin 400mg IVPB q 12h Albumin x 6 doses Requires another paracentesis as per Dr. Gan. Dr. Alvarado was spoken to and he stated that he would do procedure next week. Anemia Feosol 325mg po bid 2/2 alcohol use Hyponatremia likely secondary to cirrhosis; trending up Lasix 40mg PO qd [facility] CMP in AM 5L of fluid drained via paracentesis PPx GI ppx: Protonix 40mg PO BID [facility] DVT ppx: Hgb has been stable; Restarted Heparin 5000 units sc q8h PGY-1 Erick Aguilar Medical Management discussed with Dr. Leong <Praveen Leong - Last Filed: 02/04/18 13:08> Objective - Vital Signs/Intake and Output Vital Signs (last 24 hours): Temp Pulse Resp BP Pulse Ox 98.2 F 89 20 104/64 99 02/04/18 07:00 02/04/18 07:00 02/04/18 07:00 02/04/18 09:26 02/04/18 07:00 - Medications Medications: Current Medications Ferrous Sulfate (Feosol) 325 mg PO BID [facility] Last Admin: 02/04/18 09:26 Dose: 325 mg Folic Acid (Folic Acid) 1 mg PO DAILY [facility] Last Admin: 02/04/18 09:26 Dose: 1 mg Furosemide (Lasix) 40 mg PO DAILY [facility] Last Admin: 02/04/18 09:26 Dose: 40 mg Heparin Sodium (Porcine) (Heparin) 5,000 units SC Q8 [facility] Last Admin: 02/04/18 07:00 Dose: 5,000 units Folic Acid 1 mg/ Sodium (Chloride) 100.2 mls @ 60 mls/hr IV DAILY [facility] Last Admin: 18 12:01 Dose: 60 mls/hr Ciprofloxacin (Cipro 400mg/200ml Dsw) 400 mg in 200 mls @ 133 mls/hr IVPB Q12H [facility]; Protocol Last Admin: 02/04/18 01:40 Dose: 133 mls/hr Pantoprazole Sodium (Protonix Ec Tab) 40 mg PO BID [facility] Last Admin: 02/04/18 09:26 Dose: 40 mg Spironolactone (Aldactone) 100 mg PO DAILY [facility] Last Admin: 02/04/18 09:26 Dose: 100 mg Thiamine HCl (Vitamin B1 Tab) 100 mg PO DAILY [facility] Last Admin: 02/04/18 09:26 Dose: 100 mg - Labs Labs: 02/04/18 06:35 02/04/18 06:35 PT 17.1 SECONDS (9.7-12.2) H 01/30/18 07:58 INR 1.6 01/30/18 07:58 APTT 46 SECONDS (21-34) H 02/04/18 06:35 Attending/Attestation - Attestation I have personally seen and examined this patient.: Yes I have fully participated in the care of the patient.: Yes I have reviewed all pertinent clinical information, including history, physical exam and plan: Yes Notes (Text): 02/04/18 13:05 Medical attending: Patient was seen and examined by me. Agree with the above note by the resident Patient is pending another paracentesis this Tuesday. He feels well he says, denied fevers, denied chills, denied shortness of breath. He reports the leg edema is far better. His abdomen while still distended is much less than when he came in he says Remains on IV abx for potential SBP Praveen Leong
[2018-02-04] MEDS: Ciprofloxacin 400mg/200ml D5W 400 MG/200 ML BAG IVPB SCH ×2 (01:40→13:38)
[2018-02-04 06:43] LABS: BASO # 0.1 K/uL (0.0-0.2); BASO % 1.9 % (0.0-2.0); EOS # 0.1 K/uL (0.0-0.7); HEMOGLOBIN 7.3 g/dL (12.0-18.0); LYMPH # 1.1 K/uL (1.0-4.3); LYMPH % 31.6 % (20.0-40.0); MEAN CELL VOLUME 103.5 fL (80.0-94.0); MEAN CORPUSCULAR HEMOGLOBIN 35.9 pg (27.0-31.0); MEAN CORPUSCULAR HGB CONC 34.7 g/dL (33.0-37.0); MEAN PLATELET VOLUME 8.7 fL (7.2-11.7); MONO # 0.3 K/uL (0.0-0.8); MONO % 9.3 % (0.0-10.0); NEUT # 1.8 K/uL (1.8-7.0); NEUT % 53.2 % (50.0-75.0); RBC 2.04 Mil/uL (4.40-5.90); RED CELL DISTRIBUTION WIDTH 16.9 % (11.5-14.5); WHITE BLOOD COUNT 3.3 K/uL (4.8-10.8)
[2018-02-04 07:33] LABS: ALB/GLOB RATIO 0.9 (1.0-2.1); ALBUMIN 2.6 g/dL (3.5-5.0); ALT/SGPT 36 U/L (21-72); AST/SGOT 29 U/L (17-59); BLOOD UREA NITROGEN 10 mg/dL (9-20); CALCIUM 8.2 mg/dl (8.6-10.4); GFR NON-AFRICAN AMERICAN > 60
--- NOTE | 2018-02-04 09:09 | CP.PCM.PN ---
Subjective - Date & Time of Evaluation Date of Evaluation: 02/04/18 Time of Evaluation: 09:07 - Subjective Subjective: Covering Dr Gan- GI Service Denies abdominal pain Stable labs Objective - Vital Signs/Intake and Output Vital Signs (last 24 hours): Temp Pulse Resp BP Pulse Ox 98.2 F 89 20 106/60 99 02/04/18 07:00 02/04/18 07:00 02/04/18 07:00 02/03/18 23:20 02/04/18 07:00 - Medications Medications: Current Medications Ferrous Sulfate (Feosol) 325 mg PO BID [facility] Last Admin: 02/03/18 17:52 Dose: 325 mg Folic Acid (Folic Acid) 1 mg PO DAILY [facility] Last Admin: 02/03/18 10:44 Dose: 1 mg Furosemide (Lasix) 40 mg PO DAILY [facility] Last Admin: 02/03/18 10:45 Dose: 40 mg Heparin Sodium (Porcine) (Heparin) 5,000 units SC Q8 [facility] Last Admin: 02/04/18 07:00 Dose: 5,000 units Folic Acid 1 mg/ Sodium (Chloride) 100.2 mls @ 60 mls/hr IV DAILY [facility] Last Admin: 01/31/18 12:01 Dose: 60 mls/hr Ciprofloxacin (Cipro 400mg/200ml Dsw) 400 mg in 200 mls @ 133 mls/hr IVPB Q12H [facility]; Protocol Last Admin: 02/04/18 01:40 Dose: 133 mls/hr Pantoprazole Sodium (Protonix Ec Tab) 40 mg PO BID [facility] Last Admin: 02/03/18 17:52 Dose: 40 mg Spironolactone (Aldactone) 100 mg PO DAILY [facility] Last Admin: 02/03/18 10:44 Dose: 100 mg Thiamine HCl (Vitamin B1 Tab) 100 mg PO DAILY [facility] Last Admin: 02/03/18 10:44 Dose: 100 mg - Labs Labs: 02/04/18 06:35 02/04/18 06:35 PT 17.1 SECONDS (9.7-12.2) H 01/30/18 07:58 INR 1.6 01/30/18 07:58 APTT 46 SECONDS (21-34) H 02/04/18 06:35 - Constitutional Appears: Well, No Acute Distress - Eye Exam Eye Exam: Scleral icterus - Respiratory Exam Respiratory Exam: NORMAL BREATHING PATTERN - Cardiovascular Exam Cardiovascular Exam: REGULAR RHYTHM - GI/Abdominal Exam GI & Abdominal Exam: Distended, Soft. absent: Tenderness - Extremities Exam Extremities Exam: Normal Inspection. absent: Pedal Edema Assessment and Plan (1) Alcoholic cirrhosis of liver with ascites Assessment & Plan: Continue diuretics Repeat paracentesis to determine if SBP is adequately treated Daily weights Abstain fro alcohol intake Status: Acute (2) Anemia Assessment & Plan: Varices on EGD Hgb 7, pancytopenic due to bone marrow suppression from alcoholism and splenic sequestration Status: Acute (3) Alcohol abuse Status: Chronic
[2018-02-04] MEDS: Pantoprazole 40 mg EC Tab PO SCH ×2 (09:26→18:18)
--- NOTE | 2018-02-04 19:32 | CARD ---
APPROVED REPORT Date of service: 01/30/2018 EXAM: Two-dimensional and M-mode echocardiogram with Doppler and color Doppler. Other Information Quality : GoodRhythm : INDICATION alcohol abuse 2D DIMENSIONS IVSd1.1 (0.7-1.1cm)LVDd5.0 (3.9-5.9cm) PWd1.0 (0.7-1.1cm)LA Efmsck816 (18-58mL) LVDs3.2 (2.5-4.0cm)FS (%) 36.0 % LVEF (%)65.3 (>50%)LVEF (Tyson's)60.81 % M-Mode DIMENSIONS Left Atrium (MM)4.43 (2.5-4.0cm)IVSd0.76 (0.7-1.1cm) Aortic Root3.08 (2.2-3.7cm)LVDd6.06 (4.0-5.6cm) Aortic Cusp Exc.2.19 (1.5-2.0cm)PWd0.92 (0.7-1.1cm) FS (%) 41 %LVDs3.58 (2.0-3.8cm) LVEF (%)71 (>50%) Mitral Valve MV E Lingvlui455.1cm/sMV A Ttgawfjr84.3cm/sE/A ratio1.1 TDI Lateral E' Peak V15.00cm/sMedial E' Peak V9.77cm/sE/Lateral E'6.9 E/Medial E'10.7 Tricuspid Valve TR Peak Hstitfyv454xm/sTR Peak Gr.[id number] LEFT VENTRICLE The Left Ventricle is moderately dilated. There is normal left ventricular wall thickness. Left ventricle systolic function is normal. The Ejection Fraction is 60-65%. There is normal LV segmental wall motion. The left ventricular diastolic function is normal. RIGHT VENTRICLE The right ventricle is normal size. There is normal right ventricular wall thickness. The right ventricular systolic function is normal. ATRIA The left atrium is mildly dilated. The right atrium size is normal. The atrial septum is aneurysmal. The discontinuity of the interatrial septum is suggestive of an atrial septal defect. AORTIC VALVE The aortic valve is normal in structure. No aortic regurgitation is present. There is no aortic valvular stenosis. MITRAL VALVE The mitral valve is normal in structure. There is no evidence of mitral valve prolapse. There is no mitral valve stenosis. Mitral regurgitation is mild. TRICUSPID VALVE The tricuspid valve is normal in structure. There is mild tricuspid regurgitation. Right ventricular systolic pressure is estimated at 30-40 mmHg. There is mild pulmonary hypertension. PULMONIC VALVE The pulmonic valve is not well visualized. There is mild pulmonic valvular regurgitation. GREAT VESSELS The aortic root is normal in size. PERICARDIAL EFFUSION There is no significant pericardial effusion. <Conclusion> Left ventricle systolic function is normal. The Ejection Fraction is 60-65%. No aortic regurgitation is present. Mitral regurgitation is mild. There is mild tricuspid regurgitation. There is mild pulmonary hypertension. There is mild pulmonic valvular regurgitation. The atrial septum is aneurysmal. The discontinuity of the interatrial septum is suggestive of an atrial septal defect.
--- NOTE | 2018-02-05 00:28 | CP.PCM.PN ---
<BolivarkatharineBrian glasgow - Last Filed: 02/05/18 00:26> Subjective - Date & Time of Evaluation Date of Evaluation: 02/05/18 Time of Evaluation: 00:26 - Subjective Subjective: HOSPITALIST SERVICE Pt seen and examined at bedside, denies fc nv cp sob. no hematemesis Objective - Vital Signs/Intake and Output Vital Signs (last 24 hours): Temp Pulse Resp BP Pulse Ox 98.4 F 80 20 108/56 L 99 02/04/18 16:04 02/04/18 16:04 02/04/18 16:04 02/04/18 16:04 02/04/18 16:04 - Medications Medications: Current Medications Ferrous Sulfate (Feosol) 325 mg PO BID [facility] [place] Last Admin: 02/04/18 18:18 Dose: 325 mg Folic Acid (Folic Acid) 1 mg PO DAILY [facility] [place] Last Admin: 02/04/18 09:26 Dose: 1 mg Furosemide (Lasix) 40 mg PO DAILY [facility] [place] Last Admin: 02/04/18 09:26 Dose: 40 mg Heparin Sodium (Porcine) (Heparin) 5,000 units SC Q8 [facility] [place] Last Admin: 02/04/18 21:46 Dose: 5,000 units Folic Acid 1 mg/ Sodium (Chloride) 100.2 mls @ 60 mls/hr IV DAILY [facility] [place] Last Admin: 01/31/18 12:01 Dose: 60 mls/hr Pantoprazole Sodium (Protonix Ec Tab) 40 mg PO BID [facility] [place] Last Admin: 02/04/18 18:18 Dose: 40 mg Spironolactone (Aldactone) 100 mg PO DAILY [facility] [place] Last Admin: 02/04/18 09:26 Dose: 100 mg Thiamine HCl (Vitamin B1 Tab) 100 mg PO DAILY [facility] [place] Last Admin: 02/04/18 09:26 Dose: 100 mg - Labs Labs: 02/04/18 06:35 02/04/18 06:35 PT 17.1 SECONDS (9.7-12.2) H 01/30/18 07:58 INR 1.6 01/30/18 07:58 APTT 46 SECONDS (21-34) H 02/04/18 06:35 - Additional Findings Additional findings: - Constitutional Appears: Non-toxic, No Acute Distress - Head Exam Head Exam: NORMAL INSPECTION, NORMOCEPHALIC - Eye Exam Eye Exam: EOMI, Scleral icterus. absent: Conjunctival injection, Nystagmus - Respiratory Exam Respiratory Exam: Clear to Ausculation Bilateral, NORMAL BREATHING PATTERN. absent: Rales, Rhonchi, Wheezes - Cardiovascular Exam Cardiovascular Exam: REGULAR RHYTHM, +S1, +S2. absent: Tachycardia - GI/Abdominal Exam GI & Abdominal Exam: Distended, Soft, Normal Bowel Sounds, Suprapubic tenderness. absent: Firm, Guarding, Rigid - Extremities Exam Extremities Exam: Normal Inspection, Pedal Edema - Neurological Exam Neurological Exam: Awake, Oriented x3 - Psychiatric Exam Psychiatric exam: Normal Affect, Normal Mood - Skin Additional comments: Jaundiced Assessment and Plan - Assessment and Plan (Free Text) Assessment: Patient is a 48 yo male w/ past medical history of alcohol abuse and cirrhosis with ascites. Patient has anemia and thrombocytopenia on labs. Patient has had a prior paracentesis about a month ago. Patient had EGD and paracentesis after 2 units of pRBCs given since admission. GI consulted for paracentesis. Multiple albumin doses were given. Plan for repeat paracentesis is underway likely to happen on Tuesday with cell count/diff. If elevated patient will require outpatient oral antibiotics. Plan: Cirrhosis with Ascites GI consulted: Dr. Gan- EGD for low Hgb- grade 1 esophageal varices, small hiatal hernia, biopsies taken (continue presents meds, await path results) IR consulted: Dr. Alvarado- 5L of peritoneal fluid drained; fluid studies pending Bilateral pedal edema 2/2 to cirrhosis Lasix 40mg PO qd [facility] Aldactone 100mg po bid Thiamine 100mg IV daily, Folic Acid 1mg PO Ciprofloxacin 400mg IVPB q 12h Albumin x 6 doses Requires another paracentesis as per Dr. Gan. Dr. Alvarado was spoken to and he stated that he would do procedure next week. Anemia Feosol 325mg po bid 2/2 alcohol use Hyponatremia likely secondary to cirrhosis; trending up Lasix 40mg PO qd [facility] CMP in AM 5L of fluid drained via paracentesis PPx GI ppx: Protonix 40mg PO BID [facility] DVT ppx: Hgb has been stable; Restarted Heparin 5000 units sc q8h PGY-1 Erick Aguilar Medical Management discussed with Dr. Leong <Praveen Leong - Last Filed: 02/05/18 08:53> Objective - Vital Signs/Intake and Output Vital Signs (last 24 hours): Temp Pulse Resp BP Pulse Ox 98.9 F 83 20 107/53 L 96 02/04/18 23:10 02/05/18 07:00 02/04/18 23:10 02/04/18 23:10 02/04/18 23:10 - Medications Medications: Current Medications Ferrous Sulfate (Feosol) 325 mg PO BID [facility] [place] Last Admin: 02/04/18 18:18 Dose: 325 mg Folic Acid (Folic Acid) 1 mg PO DAILY [facility] [place] Last Admin: 02/04/18 09:26 Dose: 1 mg Furosemide (Lasix) 40 mg PO DAILY [facility] [place] Last Admin: 02/04/18 09:26 Dose: 40 mg Heparin Sodium (Porcine) (Heparin) 5,000 units SC Q8 [facility] [place] Last Admin: 02/05/18 05:29 Dose: 5,000 units Folic Acid 1 mg/ Sodium (Chloride) 100.2 mls @ 60 mls/hr IV DAILY [facility] [place] Last Admin: 01/31/18 12:01 Dose: 60 mls/hr Pantoprazole Sodium (Protonix Ec Tab) 40 mg PO BID [facility] [place] Last Admin: 02/04/18 18:18 Dose: 40 mg Spironolactone (Aldactone) 100 mg PO DAILY [facility] Last Admin: 02/04/18 09:26 Dose: 100 mg Thiamine HCl (Vitamin B1 Tab) 100 mg PO DAILY [facility] Last Admin: 02/04/18 09:26 Dose: 100 mg - Labs Labs: 02/05/18 08:10 02/05/18 08:10 PT 17.1 SECONDS (9.7-12.2) H 01/30/18 07:58 INR 1.6 01/30/18 07:58 APTT 46 SECONDS (21-34) H 02/04/18 06:35 Attending/Attestation - Attestation I have personally seen and examined this patient.: Yes I have fully participated in the care of the patient.: Yes I have reviewed all pertinent clinical information, including history, physical exam and plan: Yes Notes (Text): 02/05/18 08:51 Medical attenidng: Patient was seen and examined by me. Agree with the above note by the resident Patient is pending repeat paracentesis tommorow for further analysis of the peritoneal fluid for potential SBP He does not have fever or chills at this time. WBC stable. The first paracentesis showed a lot of neutrophils. He is on IV cipro at this time. The culture from the first paracentesis are negative Praveen Leong
[2018-02-05 08:16] LABS: BASO # 0.1 K/uL (0.0-0.2); BASO % 1.1 % (0.0-2.0); EOS # 0.1 K/uL (0.0-0.7); EOS % 2.7 % (0.0-4.0); HEMOGLOBIN 8.5 g/dL (12.0-18.0); LYMPH # 1.4 K/uL (1.0-4.3); LYMPH % 29.7 % (20.0-40.0); MEAN CELL VOLUME 104.3 fL (80.0-94.0); MEAN CORPUSCULAR HEMOGLOBIN 36.2 pg (27.0-31.0); MEAN CORPUSCULAR HGB CONC 34.7 g/dL (33.0-37.0); MEAN PLATELET VOLUME 8.5 fL (7.2-11.7); MONO # 0.3 K/uL (0.0-0.8); NEUT # 2.7 K/uL (1.8-7.0); NEUT % 59.5 % (50.0-75.0); NRBC % 0.1 % (0.0-2.0); RBC 2.36 Mil/uL (4.40-5.90); RED CELL DISTRIBUTION WIDTH 16.6 % (11.5-14.5); WHITE BLOOD COUNT 4.6 K/uL (4.8-10.8)
[2018-02-05 08:42] LABS: ALB/GLOB RATIO 0.9 (1.0-2.1); ALT/SGPT 29 U/L (21-72); AST/SGOT 42 U/L (17-59); BLOOD UREA NITROGEN 13 mg/dL (9-20); CALCIUM 8.6 mg/dl (8.6-10.4); GFR NON-AFRICAN AMERICAN > 60
[2018-02-05] MEDS: Pantoprazole 40 mg EC Tab PO SCH ×2 (09:53→17:50)
[2018-02-06 06:38] LABS: BASO % 1.2 % (0.0-2.0); EOS # 0.1 K/uL (0.0-0.7); EOS % 2.8 % (0.0-4.0); HEMOGLOBIN 7.7 g/dL (12.0-18.0); LYMPH # 1.2 K/uL (1.0-4.3); LYMPH % 30.3 % (20.0-40.0); MEAN CELL VOLUME 104.4 fL (80.0-94.0); MEAN CORPUSCULAR HEMOGLOBIN 35.8 pg (27.0-31.0); MEAN CORPUSCULAR HGB CONC 34.3 g/dL (33.0-37.0); MEAN PLATELET VOLUME 9.1 fL (7.2-11.7); MONO # 0.3 K/uL (0.0-0.8); MONO % 7.2 % (0.0-10.0); NEUT # 2.4 K/uL (1.8-7.0); NEUT % 58.5 % (50.0-75.0); RBC 2.14 Mil/uL (4.40-5.90); RED CELL DISTRIBUTION WIDTH 16.5 % (11.5-14.5)
[2018-02-06 06:51] LABS: ALB/GLOB RATIO 0.9 (1.0-2.1); ALBUMIN 2.8 g/dL (3.5-5.0); ALT/SGPT 30 U/L (21-72); AST/SGOT 28 U/L (17-59); BLOOD UREA NITROGEN 14 mg/dL (9-20); CALCIUM 8.3 mg/dl (8.6-10.4); GFR NON-AFRICAN AMERICAN > 60
--- NOTE | 2018-02-06 09:04 | CP.PCM.PN ---
<Magy Solorio - Last Filed: 02/06/18 11:46> Subjective - Date & Time of Evaluation Date of Evaluation: 02/06/18 Time of Evaluation: 09:01 - Subjective Subjective: PGY-1 Medicine Progress Note for Dr. Richards's service Patient seen and examined at bedside. Patient reports blood bowel movement in AM and was told not to flush if repeated episode. Patient denies fevers, chills, chest pain, abdominal pain, sob, n/v, constipation or diarrhea, and dysuria. Objective - Vital Signs/Intake and Output Vital Signs (last 24 hours): Temp Pulse Resp BP Pulse Ox 98 F 84 20 107/58 L 96 02/06/18 07:00 02/06/18 07:00 02/06/18 07:00 02/06/18 07:00 02/06/18 07:00 Intake and Output: 02/06/18 02/06/18 06:59 18:59 Intake Total 400 Balance 400 - Medications Medications: Current Medications Ferrous Sulfate (Feosol) 325 mg PO BID [facility] Last Admin: 02/05/18 17:50 Dose: 325 mg Folic Acid (Folic Acid) 1 mg PO DAILY [facility] Last Admin: 02/05/18 09:53 Dose: 1 mg Furosemide (Lasix) 40 mg PO DAILY [facility] Last Admin: 02/05/18 09:53 Dose: 40 mg Heparin Sodium (Porcine) (Heparin) 5,000 units SC Q8 [facility] Last Admin: 02/06/18 06:02 Dose: Not Given Folic Acid 1 mg/ Sodium (Chloride) 100.2 mls @ 60 mls/hr IV DAILY [facility] Last Admin: 01/31/18 12:01 Dose: 60 mls/hr Pantoprazole Sodium (Protonix Ec Tab) 40 mg PO BID [facility] Last Admin: 02/05/18 17:50 Dose: 40 mg Spironolactone (Aldactone) 100 mg PO DAILY [facility] Last Admin: 02/05/18 09:53 Dose: 100 mg Thiamine HCl (Vitamin B1 Tab) 100 mg PO DAILY [facility] Last Admin: 02/05/18 09:58 Dose: 100 mg - Labs Labs: 02/06/18 06:27 02/06/18 06:27 PT 17.1 SECONDS (9.7-12.2) H 01/30/18 07:58 INR 1.6 01/30/18 07:58 APTT 46 SECONDS (21-34) H 02/04/18 06:35 - Additional Findings Additional findings: - Constitutional Appears: Non-toxic, No Acute Distress - Head Exam Head Exam: NORMAL INSPECTION, NORMOCEPHALIC - Eye Exam Eye Exam: EOMI, Scleral icterus. absent: Conjunctival injection, Nystagmus - Respiratory Exam Respiratory Exam: Clear to Ausculation Bilateral, NORMAL BREATHING PATTERN. absent: Rales, Rhonchi, Wheezes - Cardiovascular Exam Cardiovascular Exam: REGULAR RHYTHM, +S1, +S2. absent: Tachycardia - GI/Abdominal Exam GI & Abdominal Exam: Distended, Soft, Normal Bowel Sounds absent: Firm, Guarding, Rigid - Extremities Exam Extremities Exam: Normal Inspection - Neurological Exam Neurological Exam: Awake, Oriented x3 - Psychiatric Exam Psychiatric exam: Normal Affect, Normal Mood - Skin Additional comments: Jaundiced Assessment and Plan - Assessment and Plan (Free Text) Assessment: Patient is a 48 yo male w/ past medical history of alcohol abuse and cirrhosis with ascites. Patient has anemia and thrombocytopenia on labs. Patient has had a prior paracentesis about a month ago. Patient had EGD and paracentesis after 2 units of pRBCs given since admission. GI consulted for paracentesis. Multiple albumin doses were given. Plan for repeat paracentesis is today with cell count/diff. If elevated patient will require outpatient oral antibiotics. Plan: Cirrhosis with Ascites GI consulted: Dr. Gan- EGD for low Hgb- grade 1 esophageal varices, small hiatal hernia, biopsies taken (continue presents meds, await path results) IR consulted: Dr. Alvarado- 5L of peritoneal fluid drained; fluid studies pending Bilateral pedal edema 2/2 to cirrhosis Lasix 40mg PO qd irasema Aldactone 100mg po daily Thiamine 100mg IV daily, Folic Acid 1mg PO Anemia GI: Dr. Gan- recommendations appreciated for stool blood positive on 02-05-18 vs 01-28-18 (negative) 2/2 alcohol use Feosol 325mg po bid Stool Occult blood positive Hemodynamically stable PPx GI ppx: Protonix 40mg PO BID irasema DVT ppx: Hgb has been stable; Heparin held for procedure PGY-1 Magy Solorio Medical Management discussed with Dr. Richards <Bernadine Richards - Last Filed: 02/08/18 15:49> Objective - Vital Signs/Intake and Output Vital Signs (last 24 hours): Temp Pulse Resp BP Pulse Ox 98.4 F 72 20 101/64 97 02/08/18 07:00 02/08/18 07:00 02/08/18 07:00 02/08/18 09:00 02/08/18 07:00 Intake and Output: 02/08/18 02/08/18 06:59 18:59 Intake Total 400 Balance 400 - Medications Medications: Current Medications Ferrous Sulfate (Feosol) 325 mg PO BID [facility] Last Admin: 02/08/18 09:01 Dose: 325 mg Folic Acid (Folic Acid) 1 mg PO DAILY [facility] Last Admin: 02/08/18 09:01 Dose: 1 mg Furosemide (Lasix) 40 mg PO DAILY [facility] Last Admin: 02/08/18 09:00 Dose: 40 mg Heparin Sodium (Porcine) (Heparin) 5,000 units SC Q8 [facility] Last Admin: 02/06/18 06:02 Dose: Not Given Pantoprazole Sodium (Protonix Ec Tab) 40 mg PO DAILY [facility] Last Admin: 02/08/18 09:00 Dose: 40 mg Spironolactone (Aldactone) 100 mg PO DAILY [facility] Last Admin: 02/08/18 09:01 Dose: 100 mg Thiamine HCl (Vitamin B1 Tab) 100 mg PO DAILY [facility] Last Admin: 02/08/18 09:01 Dose: 100 mg - Labs Labs: 02/08/18 06:25 02/08/18 06:25 PT 16.9 SECONDS (9.7-12.2) H 02/07/18 07:18 INR 1.5 02/07/18 07:18 APTT 39 SECONDS (21-34) H 02/07/18 07:18 Attending/Attestation - Attestation I have personally seen and examined this patient.: Yes I have fully participated in the care of the patient.: Yes I have reviewed all pertinent clinical information, including history, physical exam and plan: Yes Notes (Text): No complain,lying on bed,Patient was examined and I agree with the assessment and the plan
[2018-02-06] MEDS: Pantoprazole 40 mg EC Tab PO SCH (10:55)
[2018-02-06] MEDS: Ciprofloxacin 400mg/200ml D5W 400 MG/200 ML BAG IVPB SCH (17:05)
[2018-02-07] MEDS: Ciprofloxacin 400mg/200ml D5W 400 MG/200 ML BAG IVPB SCH ×2 (03:39→15:32)
[2018-02-07 06:53] LABS: BASO # 0.1 K/uL (0.0-0.2); BASO % 1.3 % (0.0-2.0); EOS # 0.1 K/uL (0.0-0.7); EOS % 2.2 % (0.0-4.0); HEMOGLOBIN 7.7 g/dL (12.0-18.0); LYMPH # 0.9 K/uL (1.0-4.3); LYMPH % 19.7 % (20.0-40.0); MEAN CELL VOLUME 103.5 fL (80.0-94.0); MEAN CORPUSCULAR HEMOGLOBIN 35.5 pg (27.0-31.0); MEAN CORPUSCULAR HGB CONC 34.3 g/dL (33.0-37.0); MONO # 0.4 K/uL (0.0-0.8); MONO % 8.6 % (0.0-10.0); NEUT # 3.1 K/uL (1.8-7.0); NEUT % 68.2 % (50.0-75.0); RBC 2.17 Mil/uL (4.40-5.90); RED CELL DISTRIBUTION WIDTH 16.5 % (11.5-14.5); WHITE BLOOD COUNT 4.5 K/uL (4.8-10.8)
[2018-02-07 07:06] LABS: ALB/GLOB RATIO 0.9 (1.0-2.1); ALBUMIN 2.7 g/dL (3.5-5.0); ALT/SGPT 26 U/L (21-72); AST/SGOT 29 U/L (17-59); BLOOD UREA NITROGEN 12 mg/dL (9-20); CALCIUM 8.2 mg/dl (8.6-10.4); GFR NON-AFRICAN AMERICAN > 60
[2018-02-07 08:10] LABS: INR 1.5; PROTHROMBIN TIME 16.9 SECONDS (9.7-12.2)
[2018-02-07] MEDS: Pantoprazole 40 mg EC Tab PO SCH (09:17)
--- NOTE | 2018-02-07 10:09 | CP.PCM.PN ---
<Magy Solorio - Last Filed: 02/07/18 12:56> Subjective - Date & Time of Evaluation Date of Evaluation: 02/07/18 Time of Evaluation: 10:07 - Subjective Subjective: PGY-1 Medicine Progress Note for Dr. Richards's service Patient seen and examined at bedside. Patient offers no acute complaints. Patien t denies fevers, chills, chest pain, sob, n/v, constipation or diarrhea, and dysuria. Objective - Vital Signs/Intake and Output Vital Signs (last 24 hours): Temp Pulse Resp BP Pulse Ox 98.4 F 81 20 100/63 98 02/07/18 07:00 02/07/18 07:00 02/07/18 07:00 02/07/18 07:00 02/07/18 07:00 Intake and Output: 02/07/18 02/07/18 06:59 18:59 Intake Total 350 Output Total 200 Balance 150 - Medications Medications: Current Medications Ferrous Sulfate (Feosol) 325 mg PO BID [facility] Last Admin: 02/06/18 17:05 Dose: 325 mg Folic Acid (Folic Acid) 1 mg PO DAILY [facility] Last Admin: 02/07/18 09:17 Dose: 1 mg Furosemide (Lasix) 40 mg PO DAILY [facility] Last Admin: 02/06/18 10:56 Dose: Not Given Heparin Sodium (Porcine) (Heparin) 5,000 units SC Q8 [facility] Last Admin: 02/06/18 06:02 Dose: Not Given Folic Acid 1 mg/ Sodium (Chloride) 100.2 mls @ 60 mls/hr IV DAILY [facility] Last Admin: 01/31/18 12:01 Dose: 60 mls/hr Ciprofloxacin (Cipro 400mg/200ml Dsw) 400 mg in 200 mls @ 133 mls/hr IVPB Q12H [facility]; Protocol Last Admin: 02/07/18 03:39 Dose: 133 mls/hr Pantoprazole Sodium (Protonix Ec Tab) 40 mg PO DAILY [facility] Last Admin: 02/07/18 09:17 Dose: 40 mg Spironolactone (Aldactone) 100 mg PO DAILY [facility] Last Admin: 02/06/18 10:59 Dose: Not Given Thiamine HCl (Vitamin B1 Tab) 100 mg PO DAILY [facility] Last Admin: 02/07/18 09:17 Dose: 100 mg - Labs Labs: 02/07/18 06:44 02/07/18 06:44 PT 16.9 SECONDS (9.7-12.2) H 02/07/18 07:18 INR 1.5 02/07/18 07:18 APTT 39 SECONDS (21-34) H 02/07/18 07:18 - Additional Findings Additional findings: - Constitutional Appears: Non-toxic, No Acute Distress - Head Exam Head Exam: NORMAL INSPECTION, NORMOCEPHALIC - Eye Exam Eye Exam: EOMI, Scleral icterus improving. absent: Conjunctival injection, Nystagmus - Respiratory Exam Respiratory Exam: Clear to Ausculation Bilateral, NORMAL BREATHING PATTERN. absent: Rales, Rhonchi, Wheezes - Cardiovascular Exam Cardiovascular Exam: REGULAR RHYTHM, +S1, +S2. absent: Tachycardia - GI/Abdominal Exam GI & Abdominal Exam: Distended, Soft, Normal Bowel Sounds absent: Firm, Guarding, Rigid - Extremities Exam Extremities Exam: Normal Inspection - Neurological Exam Neurological Exam: Awake, Oriented x3 - Psychiatric Exam Psychiatric exam: Normal Affect, Normal Mood - Skin Additional comments: Jaundice improving, Normal color seen Assessment and Plan - Assessment and Plan (Free Text) Assessment: Patient is a 48 yo male w/ past medical history of alcohol abuse and cirrhosis with ascites. Patient has anemia and thrombocytopenia on labs. Patient has had a prior paracentesis about a month ago. Patient had EGD and paracentesis after 2 units of pRBCs given since admission. GI consulted for paracentesis. Multiple albumin doses were given. Plan for repeat paracentesis is today as patient could not be scheduled prior with cell count/diff. If elevated patient will require outpatient oral antibiotics. Plan: Cirrhosis with Ascites GI consulted: Dr. Gan- EGD for low Hgb- grade 1 esophageal varices, small hiatal hernia, biopsies taken (continue presents meds, await path results) IR consulted: Dr. Alvarado- 5L of peritoneal fluid drained; fluid studies pending Bilateral pedal edema 2/2 to cirrhosis Lasix 40mg PO qd irasema Aldactone 100mg po daily Thiamine 100mg IV daily, Folic Acid 1mg PO PLAN for PARACENTESIS WITH IR Anemia GI: Dr. Gan- recommendations appreciated for stool blood positive on 02-05-18 vs 01-28-18 (negative) 2/2 alcohol use with elevated MCV Feosol 325mg po bid Stool Occult blood positive; H&H stable PPx GI ppx: Protonix 40mg PO daily [facility] DVT ppx: Hgb has been stable; Heparin held for procedure Disposition: Discharge pending fluid studies for outpatient oral abx PGY-1 Magy Solorio Medical Management discussed with Dr. Richards <Bernadine Richards - Last Filed: 02/08/18 15:51> Objective - Vital Signs/Intake and Output Vital Signs (last 24 hours): Temp Pulse Resp BP Pulse Ox 98.4 F 72 20 101/64 97 02/08/18 07:00 02/08/18 07:00 02/08/18 07:00 02/08/18 09:00 02/08/18 07:00 Intake and Output: 02/08/18 02/08/18 06:59 18:59 Intake Total 400 Balance 400 - Medications Medications: Current Medications Ferrous Sulfate (Feosol) 325 mg PO BID [facility] Last Admin: 02/08/18 09:01 Dose: 325 mg Folic Acid (Folic Acid) 1 mg PO DAILY [facility] Last Admin: 02/08/18 09:01 Dose: 1 mg Furosemide (Lasix) 40 mg PO DAILY [facility] Last Admin: 02/08/18 09:00 Dose: 40 mg Heparin Sodium (Porcine) (Heparin) 5,000 units SC Q8 [facility] Last Admin: 02/06/18 06:02 Dose: Not Given Pantoprazole Sodium (Protonix Ec Tab) 40 mg PO DAILY [facility] Last Admin: 02/08/18 09:00 Dose: 40 mg Spironolactone (Aldactone) 100 mg PO DAILY [facility] Last Admin: 02/08/18 09:01 Dose: 100 mg Thiamine HCl (Vitamin B1 Tab) 100 mg PO DAILY [facility] Last Admin: 02/08/18 09:01 Dose: 100 mg - Labs Labs: 02/08/18 06:25 02/08/18 06:25 PT 16.9 SECONDS (9.7-12.2) H 02/07/18 07:18 INR 1.5 02/07/18 07:18 APTT 39 SECONDS (21-34) H 02/07/18 07:18 Attending/Attestation - Attestation I have personally seen and examined this patient.: Yes I have fully participated in the care of the patient.: Yes I have reviewed all pertinent clinical information, including history, physical exam and plan: Yes Notes (Text): Seen and examined,patient feels good after taking fluid,5Liters taken. we will give albumin and follow cell count 02/08/18 15:50
--- NOTE | 2018-02-07 10:22 | CP.PCM.PN ---
Subjective - Date & Time of Evaluation Date of Evaluation: 02/07/18 Time of Evaluation: 10:19 - Subjective Subjective: Patient denies having nausea, vomiting, abdominal pain. Repeat paracentesis pending. Objective - Vital Signs/Intake and Output Vital Signs (last 24 hours): Temp Pulse Resp BP Pulse Ox 98.4 F 81 20 100/63 98 02/07/18 07:00 02/07/18 07:00 02/07/18 07:00 02/07/18 07:00 02/07/18 07:00 Intake and Output: 02/07/18 02/07/18 06:59 18:59 Intake Total 350 Output Total 200 Balance 150 - Medications Medications: Current Medications Ferrous Sulfate (Feosol) 325 mg PO BID [facility] Last Admin: 02/06/18 17:05 Dose: 325 mg Folic Acid (Folic Acid) 1 mg PO DAILY [facility] Last Admin: 02/07/18 09:17 Dose: 1 mg Furosemide (Lasix) 40 mg PO DAILY [facility] Last Admin: 02/06/18 10:56 Dose: Not Given Heparin Sodium (Porcine) (Heparin) 5,000 units SC Q8 [facility] Last Admin: 02/06/18 06:02 Dose: Not Given Folic Acid 1 mg/ Sodium (Chloride) 100.2 mls @ 60 mls/hr IV DAILY [facility] Last Admin: 01/31/18 12:01 Dose: 60 mls/hr Ciprofloxacin (Cipro 400mg/200ml Dsw) 400 mg in 200 mls @ 133 mls/hr IVPB Q12H [facility]; Protocol Last Admin: 02/07/18 03:39 Dose: 133 mls/hr Pantoprazole Sodium (Protonix Ec Tab) 40 mg PO DAILY [facility] Last Admin: 02/07/18 09:17 Dose: 40 mg Spironolactone (Aldactone) 100 mg PO DAILY [facility] Last Admin: 02/06/18 10:59 Dose: Not Given Thiamine HCl (Vitamin B1 Tab) 100 mg PO DAILY [facility] Last Admin: 02/07/18 09:17 Dose: 100 mg - Labs Labs: 02/07/18 06:44 02/07/18 06:44 PT 16.9 SECONDS (9.7-12.2) H 02/07/18 07:18 INR 1.5 02/07/18 07:18 APTT 39 SECONDS (21-34) H 02/07/18 07:18 - Constitutional Appears: No Acute Distress - Head Exam Head Exam: ATRAUMATIC, NORMOCEPHALIC - Eye Exam Eye Exam: EOMI, PERRL - Neck Exam Neck Exam: absent: Lymphadenopathy, Thyromegaly - Respiratory Exam Respiratory Exam: NORMAL BREATHING PATTERN. absent: Rales, Rhonchi, Wheezes - Cardiovascular Exam Cardiovascular Exam: REGULAR RHYTHM, +S1, +S2. absent: Gallop, Rubs, Murmur - GI/Abdominal Exam GI & Abdominal Exam: Distended, Soft, Normal Bowel Sounds. absent: Tenderness, Organomegaly - Rectal Exam Rectal Exam: Deferred - Extremities Exam Extremities Exam: absent: Calf Tenderness, Pedal Edema Assessment and Plan (1) Alcoholic cirrhosis of liver with ascites Assessment & Plan: Repeat paracentesis is pending. If ascitic fluid PMN count is less than 250, may discontinue antibiotics. Status: Acute (2) Fecal occult blood test positive Assessment & Plan: Patient has been anemic, HGB 7.7, and nurses report that bowel movement 02/05/18 contained blood. Stool occult blood was positive on 02/05/2018 as well. Patient should have colonoscopy, which can be done on Tuesday, if patient remains hospitalized, or as an outpatient. Status: Acute
[2018-02-07] MEDS ORDERED: Lidocaine Hydrochloride 10 ML INJ ONE (10:59)
[2018-02-07] MEDS ORDERED: Lidocaine 2% MPF (5 ml) Inj ONE (10:59)
[2018-02-07 12:20] LABS: BODY FLUID TYPE PERITONEAL/ASCITES
[2018-02-07 13:29] LABS: BF GROSS APPEARANCE SL CLOUDY (CLEAR)
--- NOTE | 2018-02-07 13:39 | PCM.SURG1 ---
Surgeon's Initial Post Op Note - Surgeon's Notes Surgeon: Driss Alvarado MD Rod Buster: NONE Type of Anesthesia: Local Pre-Operative Diagnosis: Ascites Operative Findings: US showed large amount of ascites Post-Operative Diagnosis: Ascites Operation Performed: US guided paracentesis Specimen/Specimens Removed: 5 liters of straw colored fluid Estimated Blood Loss: EBL {In ML}: 0 Blood Products Given: N/A Drains Used: No Drains Post-Op Condition: Fair Date of Surgery/Procedure: 02/07/18 Time of Surgery/Procedure: 11:25
--- NOTE | 2018-02-07 13:46 | US ---
Date of Procedure: 02/07/2018 PROCEDURE: Ultrasound-guided paracentesis, CPT 84874 Medications: 7 cc 1% Lidocaine HISTORY: Ascites, abdominal pain TECHNIQUE: Following informed consent , the patient was placed supine on the stretcher and the site was marked. A limited abdominal ultrasound was performed that showed a large amount of intra-abdominal fluid. Procedural time out was called and the Pt's abdomen was marked and prepped and draped in the usual sterile fashion. Ultrasound-guided large volume paracentesis performed. A total of 5 liters of straw colored fluid was removed without complication. IMPRESSION: Ultrasound-guided large volume paracentesis.
[2018-02-07 13:52] LABS: BODY FLUID MONO/MACROPHAGE 4 % (0-0)
[2018-02-07 13:53] LABS: BODY FLUID TOTAL COUNT 100 (0-0)
[2018-02-07 15:53] VITALS: RESP 20
[2018-02-07] MEDS ORDERED: Albumin Human 25% (12.5 gm/50 ml) IV ONE (16:00)
[2018-02-07] MEDS: Albumin Human 25% (12.5 gm/50 ml) IV SCH ×4 (17:04→18:06)
[2018-02-08] MEDS: Ciprofloxacin 400mg/200ml D5W 400 MG/200 ML BAG IVPB SCH (03:54)
[2018-02-08 06:33] LABS: BASO % 1.3 % (0.0-2.0); EOS # 0.1 K/uL (0.0-0.7); EOS % 2.7 % (0.0-4.0); HEMOGLOBIN 7.8 g/dL (12.0-18.0); LYMPH % 28.9 % (20.0-40.0); MEAN CELL VOLUME 102.9 fL (80.0-94.0); MEAN CORPUSCULAR HEMOGLOBIN 35.2 pg (27.0-31.0); MEAN CORPUSCULAR HGB CONC 34.3 g/dL (33.0-37.0); MONO # 0.3 K/uL (0.0-0.8); MONO % 7.8 % (0.0-10.0); NEUT # 2.1 K/uL (1.8-7.0); NEUT % 59.3 % (50.0-75.0); NRBC % 0.1 % (0.0-2.0); RBC 2.21 Mil/uL (4.40-5.90); RED CELL DISTRIBUTION WIDTH 16.3 % (11.5-14.5); WHITE BLOOD COUNT 3.6 K/uL (4.8-10.8)
[2018-02-08 06:55] LABS: BLOOD UREA NITROGEN 10 mg/dL (9-20)
[2018-02-08 06:57] LABS: ALB/GLOB RATIO 0.9 (1.0-2.1); ALBUMIN 2.8 g/dL (3.5-5.0); ALT/SGPT 27 U/L (21-72); AST/SGOT 27 U/L (17-59); CALCIUM 7.8 mg/dl (8.6-10.4); GFR NON-AFRICAN AMERICAN > 60
[2018-02-08 07:36] VITALS: O2SAT 97
[2018-02-08] MEDS: Pantoprazole 40 mg EC Tab PO SCH (09:00)
--- NOTE | 2018-02-08 15:41 | CP.PCM.DIS ---
<Magy Solorio - Last Filed: 02/08/18 15:53> Provider - Provider Date of Admission: 01/28/18 13:38 Attending physician: Praveen Leong DO Consults: 01/28/18 14:51 Physician Consult Routine Comment: Consulting Provider: Waqas Gan Consulting Physician: Waqas Gan Reason for Consult: Ascites with liver cirrhosis and bilateral LE edema, jaundiced Additional Comments: Patient admitted for anemia, Hemoglobin 6. Evaluation for possible EGD to rule out esophageal varices Time Spent in preparation of Discharge (in minutes): 45 Hospital Course - Lab Results Lab Results: Micro Results 02/07/18 12:21 Other: Please Indicate Fungal Culture - Preliminary 02/07/18 12:17 Abdominal Fluid Gram Stain - Final 01/30/18 13:58 Peritoneal Fluid Fungal Culture - Preliminary NO FUNGUS GROWTH IN 1 WEEK. 01/31/18 20:03 Blood Blood Culture - Final NO GROWTH AFTER 5 DAYS 01/31/18 20:03 Blood Gram Stain - Final TEST NOT PERFORMED 01/31/18 12:19 Blood Blood Culture - Final NO GROWTH AFTER 5 DAYS 01/31/18 12:19 Blood Gram Stain - Final TEST NOT PERFORMED 01/30/18 13:58 Peritoneal Fluid Gram Stain - Final 01/30/18 13:58 Peritoneal Fluid Body Fluid Culture - Final No growth. 01/30/18 13:58 Peritoneal Fluid Anaerobic Culture - Final NO ANAEROBES ISOLATED. Most Recent Lab Values WBC 3.6 K/uL (4.8-10.8) L 02/08/18 06:25 RBC 2.21 Mil/uL (4.40-5.90) L 02/08/18 06:25 Hgb 7.8 g/dL (12.0-18.0) L 02/08/18 06:25 Hct 22.8 % (35.0-51.0) L 02/08/18 06:25 MCV 102.9 fL (80.0-94.0) H 02/08/18 06:25 MCH 35.2 pg (27.0-31.0) H 02/08/18 06:25 MCHC 34.3 g/dL (33.0-37.0) 02/08/18 06:25 RDW 16.3 % (11.5-14.5) H 02/08/18 06:25 Plt Count 79 K/uL (130-400) L 02/08/18 06:25 MPV 9.0 fL (7.2-11.7) 02/08/18 06:25 Neut % (Auto) 59.3 % (50.0-75.0) 02/08/18 06:25 Lymph % (Auto) 28.9 % (20.0-40.0) 02/08/18 06:25 [place] % (Auto) 7.8 % (0.0-10.0) 02/08/18 06:25 Eos % (Auto) 2.7 % (0.0-4.0) 02/08/18 06:25 Baso % (Auto) 1.3 % (0.0-2.0) 02/08/18 06:25 Neut # (Auto) 2.1 K/uL (1.8-7.0) 02/08/18 06:25 Lymph # (Auto) 1.0 K/uL (1.0-4.3) 02/08/18 06:25 [place] # (Auto) 0.3 K/uL (0.0-0.8) 02/08/18 06:25 Eos # (Auto) 0.1 K/uL (0.0-0.7) 02/08/18 06:25 Baso # (Auto) 0.0 K/uL (0.0-0.2) 02/08/18 06:25 Differential Comment 01/29/18 08:25 Retic Count 8.3 % (0.5-1.5) H 01/28/18 15:20 Haptoglobin 111.5 mg/dL (30.0-200.0) 01/29/18 12:13 PT 16.9 SECONDS (9.7-12.2) H 02/07/18 07:18 INR 1.5 02/07/18 07:18 APTT 39 SECONDS (21-34) H 02/07/18 07:18 Sodium 133 mmol/L (132-148) 02/08/18 06:25 Potassium 3.7 mmol/L (3.6-5.2) 02/08/18 06:25 Chloride 105 mmol/L (98-107) 02/08/18 06:25 Carbon Dioxide 17 mmol/L (22-30) L 02/08/18 06:25 Anion Gap 14 (10-20) 02/08/18 06:25 BUN 10 mg/dL (9-20) 02/08/18 06:25 Creatinine 0.5 mg/dL (0.8-1.5) L 02/08/18 06:25 Est GFR ( Amer) > 60 02/08/18 06:25 Est GFR (Non-Af Amer) > 60 02/08/18 06:25 POC Glucose (mg/dL) 77 mg/dL (65-110) 02/03/18 06:19 Random Glucose 86 mg/dL (75-110) 02/08/18 06:25 Calcium 7.8 mg/dl (8.6-10.4) L 02/08/18 06:25 Phosphorus 3.4 mg/dL (2.5-4.5) 02/06/18 06:27 Magnesium 1.7 mg/dL (1.6-2.3) 02/06/18 06:27 Iron 31 ug/dL (49-181) L 01/28/18 15:20 TIBC 210 ug/dL (250-450) L 01/28/18 15:20 % Saturation 13 (20-55) L 01/28/18 15:20 Ferritin 473.0 ng/mL 01/28/18 15:20 Total Bilirubin 2.6 mg/dL (0.2-1.3) H 02/08/18 06:25 Direct Bilirubin 4.8 mg/dL (0.0-0.4) H 01/29/18 12:13 AST 27 U/L (17-59) 02/08/18 06:25 ALT 27 U/L (21-72) 02/08/18 06:25 Alkaline Phosphatase 94 U/L (38-126) 02/08/18 06:25 Ammonia 20 umol/L (9-33) D 01/28/18 12:31 Lactate Dehydrogenase 453 U/L (313-618) 01/29/18 12:13 Troponin I < 0.0120 ng/mL (0.00-0.120) 01/28/18 12:31 NT-Pro-B Natriuret Pep 227 pg/mL (0-450) 01/28/18 12:31 Total Protein 5.8 g/dL (6.3-8.3) L 02/08/18 06:25 Albumin 2.8 g/dL (3.5-5.0) L 02/08/18 06:25 Globulin 3.0 gm/dL (2.2-3.9) 02/08/18 06:25 Albumin/Globulin Ratio 0.9 (1.0-2.1) L 02/08/18 06:25 Triglycerides 89 mg/dL (0-149) D 01/30/18 07:58 Cholesterol 138 mg/dL (0-199) 01/30/18 07:58 LDL Cholesterol Direct 102 mg/dL (0-129) 01/30/18 07:58 HDL Cholesterol 20 mg/dL (30-70) L 01/30/18 07:58 Alpha Fetoprotein 5.1 ng/mL (0.0-7.5) 01/30/18 07:58 Vitamin B12 > 1000 pg/mL (239-931) H 01/28/18 15:20 Folate 11.6 ng/mL 01/28/18 15:20 Ur Random Sodium 74 mmol/L 02/03/18 20:39 Fluid Source Peritoneal/ascites 02/07/18 12:17 Fluid Appearance Sl cloudy (CLEAR) 02/07/18 12:17 Fluid WBC 372.0 /mm3 (0.0-300.0) H 02/07/18 12:17 Fluid RBC 628.0 /mm3 (0.0-0.0) H 02/07/18 12:17 Fluid Tot Cell Count 100 (0-0) H 02/07/18 12:17 Fluid Neutrophils 56.0 % (0-0) H 02/07/18 12:17 Fluid Lymphocytes 40.0 % (0-0) H 02/07/18 12:17 Fld Monocyte/Macrophag 4 % (0-0) H 02/07/18 12:17 Fluid Albumin 0.3 g/dL 01/30/18 13:58 Fluid Comment 02/07/18 12:17 Stool Occult Blood Positive (NEGATIVE) H 02/05/18 13:07 Blood Type O POSITIVE 01/28/18 12:31 Antibody Screen Negative 01/28/18 12:31 - Hospital Course Hospital Course: Upon Admission Mr. Beltrán is a 47 year old male with past medical history of alcohol abuse and unknown symptomatic cirrhosis with previous paracentesis on (12/28/17), who presents to the ED with complaints of bilateral lower extremities edema that has been going on for 8 days, which was preceded with abdominal distention for a month. Patient states that he has been taking his medications as prescribed since his last admission and he has established care in the [facility]. However, patient has not seek any medical attention since his the start of his recent episode of peripheral edema and abdominal distention because of work. Upon review of systems, patient admits to fatigue, lightheadedness, orthopnea, low grade fever 2 days ago, and increasing shoe size, however, patient denies any symptoms chills, chest pain, palpitations, nausea, vomiting, hematemesis, bloody or dark BM, recent travels or abdominal pain and altered mental status change. Patient last use of ETOH was 5 months ago. Hospital Course Patient is a 48 yo male w/ past medical history of alcohol abuse and cirrhosis with ascites. Patient has anemia and thrombocytopenia on labs. Patient has had a prior paracentesis about a month ago. Patient had EGD and paracentesis after 2 units of pRBCs given since admission. GI consulted for paracentesis. Multiple albumin doses were given s/p first paracentesis. On fluid studies, it was noted of PMN >250 concerning for SBP and prophylatic antibiotic was initiated: Ciprofloxacin. Cipro was continuted until repeat paracentesis. Repeat fluid studies showed elevated WBC and after conversation with GI specialist, patient is discharged with Oral Cipro for 5 days. Patient was educated to follow up in [facility] on 02/20/18. Discharge Plan 1. Patient is stable for discharge to home as per Dr. Richards and Dr. Gan. 2. Patient has followup appointment scheduled with [facility] on 02/20/18 at 2:00pm. 3. Patient will continue taking the following medications: Lasix 40mg once by mouth daily Aldactone 100mg once by mouth daily Ciprofloxacin 500mg twice by mouth daily Ferrous sulfate 325mg twice by mouth daily (can make stool look black) 4. Patient should return to hospital if symptoms worsen or recur. 5. Patient understands the plan as above and agrees. 1. El paciente se encuentra estable para el [facility] segn el Dr. Richards y el Dr. Gan. 2. El paciente tiene glen christie de seguimiento programada con la clnica de nataly del vecindario el 02/20/18 a las 2:00 pm. 3. El paciente continuar tomando los siguientes medicamentos: Lasix 40 mg glen vez por va oral al da. Aldactone 100 mg glen vez por va oral al da. Ciprofloxacina 500 mg dos veces por boca al da Sulfato ferroso 325 mg dos veces por la boca diariamente (puede hacer que las heces se vean negras) 4. El paciente debe regresar al hospital si los sntomas empeoran o reaparecen. 5. El paciente entiende el plan apolinar est arriba y est de acuerdo Disclaimer: Written above is a synopsis of patient's current condition. Please refer to EMR for full report. Discharge Exam - Head Exam Head Exam: ATRAUMATIC, NORMOCEPHALIC - Eye Exam Eye Exam: EOMI, Normal appearance, PERRL Pupil Exam: NORMAL ACCOMODATION, PERRL - ENT Exam ENT Exam: Normal Exam - Respiratory Exam Respiratory Exam: Clear to PA & Lateral, NORMAL BREATHING PATTERN, UNREMARKABLE. absent: Accessory Muscle Use, Rales, Rhonchi, Wheezes - Cardiovascular Exam Cardiovascular Exam: REGULAR RHYTHM, +S1, +S2. absent: Gallop, JVD - GI/Abdominal Exam GI & Abdominal Exam: Normal Bowel Sounds, Unremarkable. absent: Rebound, Tenderness - Extremities Exam Extremities exam: normal inspection - Neurological Exam Neurological exam: Alert, Oriented x3 - Psychiatric Exam Psychiatric exam: Normal Affect, Normal Mood - Skin Skin Exam: Intact, Normal Color Discharge Plan - Discharge Medications Prescriptions: RX: Ciprofloxacin [Cipro] 500 mg PO BID #10 tab RX: Ferrous Sulfate [Feosol] 325 mg PO BID #60 tab RX: Furosemide [Lasix] 40 mg PO DAILY #30 tab RX: Spironolactone [Aldactone] 100 mg PO DAILY #30 tab - Follow Up Plan Condition: GOOD Disposition: HOME/ ROUTINE Instructions: Ciprofloxacin (Systemic), Heart Healthy Diet, Kidney Disease Diet (For People Not on Dialysis), Cirrhosis (DC), Gastritis (DC), Alcohol Withdrawal (DC), Alcohol Abuse and Alcoholism (DC), Upper GI Endoscopy (DC), Normocytic Normochromic Anemia (DC) Additional Instructions: 1. Patient is stable for discharge to home as per Dr. Richards and Dr. Gan. 2. Patient has followup appointment scheduled with [facility] on 02/20/18 at 2:00pm. 3. Patient will continue taking the following medications: Lasix 40mg once by mouth daily Aldactone 100mg once by mouth daily Ciprofloxacin 500mg twice by mouth daily Ferrous sulfate 325mg twice by mouth daily (can make stool look black) 4. Patient should return to hospital if symptoms worsen or recur. 5. Patient understands the plan as above and agrees. 1. El paciente se encuentra estable para el [facility] segn el Dr. Richards y el Dr. Gan. 2. El paciente tiene glen christie de seguimiento programada con la clnica de nataly del vecindario el 02/20/18 a las 2:00 pm. 3. El paciente continuar tomando los siguientes medicamentos: Lasix 40 mg glen vez por va oral al da. Aldactone 100 mg glen vez por va oral al da. Ciprofloxacina 500 mg dos veces por boca al da Sulfato ferroso 325 mg dos veces por la boca diariamente (puede hacer que las heces se vean negras) 4. El paciente debe regresar al hospital si los sntomas empeoran o reaparecen. 5. El paciente entiende el plan apolinar est arriba y est de acuerdo Referrals: [facility] at [facility] [Outside] Waqas Gan MD [Staff Provider] - <Bernadine Richards - Last Filed: 02/10/18 19:42> Provider - Provider Date of Admission: 01/28/18 13:38 Attending physician: Praveen Leong DO Consults: 01/28/18 14:51 Physician Consult Routine Comment: Consulting Provider: Waqas Gan Consulting Physician: Waqas Gan Reason for Consult: Ascites with liver cirrhosis and bilateral LE edema, jaundiced Additional Comments: Patient admitted for anemia, Hemoglobin 6. Evaluation for possible EGD to rule out esophageal varices Hospital Course - Lab Results Lab Results: Micro Results 02/07/18 12:17 Abdominal Fluid Gram Stain - Final 02/07/18 12:17 Abdominal Fluid Body Fluid Culture - Preliminary NO GROWTH AFTER 3 DAYS 02/07/18 12:17 Abdominal Fluid Anaerobic Culture - Final NO ANAEROBES ISOLATED. 02/07/18 12:21 Other: Please Indicate Fungal Culture - Preliminary 01/30/18 13:58 Peritoneal Fluid Fungal Culture - Preliminary NO FUNGUS GROWTH IN 1 WEEK. 01/31/18 20:03 Blood Blood Culture - Final NO GROWTH AFTER 5 DAYS 01/31/18 20:03 Blood Gram Stain - Final TEST NOT PERFORMED 01/31/18 12:19 Blood Blood Culture - Final NO GROWTH AFTER 5 DAYS 01/31/18 12:19 Blood Gram Stain - Final TEST NOT PERFORMED 01/30/18 13:58 Peritoneal Fluid Gram Stain - Final 01/30/18 13:58 Peritoneal Fluid Body Fluid Culture - Final No growth. 01/30/18 13:58 Peritoneal Fluid Anaerobic Culture - Final NO ANAEROBES ISOLATED. Most Recent Lab Values WBC 3.6 K/uL (4.8-10.8) L 02/08/18 06:25 RBC 2.21 Mil/uL (4.40-5.90) L 02/08/18 06:25 Hgb 7.8 g/dL (12.0-18.0) L 02/08/18 06:25 Hct 22.8 % (35.0-51.0) L 02/08/18 06:25 MCV 102.9 fL (80.0-94.0) H 02/08/18 06:25 MCH 35.2 pg (27.0-31.0) H 02/08/18 06:25 MCHC 34.3 g/dL (33.0-37.0) 02/08/18 06:25 RDW 16.3 % (11.5-14.5) H 02/08/18 06:25 Plt Count 79 K/uL (130-400) L 02/08/18 06:25 MPV 9.0 fL (7.2-11.7) 02/08/18 06:25 Neut % (Auto) 59.3 % (50.0-75.0) 02/08/18 06:25 Lymph % (Auto) 28.9 % (20.0-40.0) 02/08/18 06:25 [place] % (Auto) 7.8 % (0.0-10.0) 02/08/18 06:25 Eos % (Auto) 2.7 % (0.0-4.0) 02/08/18 06:25 Baso % (Auto) 1.3 % (0.0-2.0) 02/08/18 06:25 Neut # (Auto) 2.1 K/uL (1.8-7.0) 02/08/18 06:25 Lymph # (Auto) 1.0 K/uL (1.0-4.3) 02/08/18 06:25 [place] # (Auto) 0.3 K/uL (0.0-0.8) 02/08/18 06:25 Eos # (Auto) 0.1 K/uL (0.0-0.7) 02/08/18 06:25 Baso # (Auto) 0.0 K/uL (0.0-0.2) 02/08/18 06:25 Differential Comment 01/29/18 08:25 Retic Count 8.3 % (0.5-1.5) H 01/28/18 15:20 Haptoglobin 111.5 mg/dL (30.0-200.0) 01/29/18 12:13 PT 16.9 SECONDS (9.7-12.2) H 02/07/18 07:18 INR 1.5 02/07/18 07:18 APTT 39 SECONDS (21-34) H 02/07/18 07:18 Sodium 133 mmol/L (132-148) 02/08/18 06:25 Potassium 3.7 mmol/L (3.6-5.2) 02/08/18 06:25 Chloride 105 mmol/L (98-107) 02/08/18 06:25 Carbon Dioxide 17 mmol/L (22-30) L 02/08/18 06:25 Anion Gap 14 (10-20) 02/08/18 06:25 BUN 10 mg/dL (9-20) 02/08/18 06:25 Creatinine 0.5 mg/dL (0.8-1.5) L 02/08/18 06:25 Est GFR ( Amer) > 60 02/08/18 06:25 Est GFR (Non-Af Amer) > 60 02/08/18 06:25 POC Glucose (mg/dL) 77 mg/dL (65-110) 02/03/18 06:19 Random Glucose 86 mg/dL (75-110) 02/08/18 06:25 Calcium 7.8 mg/dl (8.6-10.4) L 02/08/18 06:25 Phosphorus 3.4 mg/dL (2.5-4.5) 02/06/18 06:27 Magnesium 1.7 mg/dL (1.6-2.3) 02/06/18 06:27 Iron 31 ug/dL (49-181) L 01/28/18 15:20 TIBC 210 ug/dL (250-450) L 01/28/18 15:20 % Saturation 13 (20-55) L 01/28/18 15:20 Ferritin 473.0 ng/mL 01/28/18 15:20 Total Bilirubin 2.6 mg/dL (0.2-1.3) H 02/08/18 06:25 Direct Bilirubin 4.8 mg/dL (0.0-0.4) H 01/29/18 12:13 AST 27 U/L (17-59) 02/08/18 06:25 ALT 27 U/L (21-72) 02/08/18 06:25 Alkaline Phosphatase 94 U/L (38-126) 02/08/18 06:25 Ammonia 20 umol/L (9-33) D 01/28/18 12:31 Lactate Dehydrogenase 453 U/L (313-618) 01/29/18 12:13 Troponin I < 0.0120 ng/mL (0.00-0.120) 01/28/18 12:31 NT-Pro-B Natriuret Pep 227 pg/mL (0-450) 01/28/18 12:31 Total Protein 5.8 g/dL (6.3-8.3) L 02/08/18 06:25 Albumin 2.8 g/dL (3.5-5.0) L 02/08/18 06:25 Globulin 3.0 gm/dL (2.2-3.9) 02/08/18 06:25 Albumin/Globulin Ratio 0.9 (1.0-2.1) L 02/08/18 06:25 Triglycerides 89 mg/dL (0-149) D 01/30/18 07:58 Cholesterol 138 mg/dL (0-199) 01/30/18 07:58 LDL Cholesterol Direct 102 mg/dL (0-129) 01/30/18 07:58 HDL Cholesterol 20 mg/dL (30-70) L 01/30/18 07:58 Alpha Fetoprotein 5.1 ng/mL (0.0-7.5) 01/30/18 07:58 Vitamin B12 > 1000 pg/mL (239-931) H 01/28/18 15:20 Folate 11.6 ng/mL 01/28/18 15:20 Ur Random Sodium 74 mmol/L 02/03/18 20:39 Fluid Source Peritoneal/ascites 02/07/18 12:17 Fluid Appearance Sl cloudy (CLEAR) 02/07/18 12:17 Fluid WBC 372.0 /mm3 (0.0-300.0) H 02/07/18 12:17 Fluid RBC 628.0 /mm3 (0.0-0.0) H 02/07/18 12:17 Fluid Tot Cell Count 100 (0-0) H 02/07/18 12:17 Fluid Neutrophils 56.0 % (0-0) H 02/07/18 12:17 Fluid Lymphocytes 40.0 % (0-0) H 02/07/18 12:17 Fld Monocyte/Macrophag 4 % (0-0) H 02/07/18 12:17 Fluid Albumin 0.3 g/dL 01/30/18 13:58 Fluid Comment 02/07/18 12:17 Stool Occult Blood Positive (NEGATIVE) H 02/05/18 13:07 Blood Type O POSITIVE 01/28/18 12:31 Antibody Screen Negative 01/28/18 12:31 Attending/Attestation - Attestation I have personally seen and examined this patient.: Yes I have fully participated in the care of the patient.: Yes I have reviewed all pertinent clinical information, including history, physical exam and plan: Yes
[2018-02-08 16:26] VITALS: BP 103/55; PULSE 85; TEMP 98
== END 2018-02-08 17:21 | disposition home or self-care (01) | DRG 264 ==
LOC: C.ER 11:23 → C.9E 13:38 → C.5S 16:11 → C.6T 01-30 21:33
PROVIDERS: ADMIT Hospitalist; ATTEND Hospitalist
PROC: 0DB98ZX Excision of Duodenum, Via Natural or Artificial Opening Endoscopic, Diagnostic (ICD-10-PCS; 2018-01-30)
PROC: 0DB78ZX Excision of Stomach, Pylorus, Via Natural or Artificial Opening Endoscopic, Diagnostic (ICD-10-PCS; 2018-01-30)
PROC: 0W9G3ZZ Drainage of Peritoneal Cavity, Percutaneous Approach (ICD-10-PCS; principal; 2018-01-30 08:38)
PROC: 0W9G3ZX Drainage of Peritoneal Cavity, Percutaneous Approach, Diagnostic (ICD-10-PCS; 2018-02-07)
DX: K70.31 Alcoholic cirrhosis of liver with ascites (principal); D68.9 Coagulation defect, unspecified; I85.00 Esophageal varices without bleeding; K44.9 Diaphragmatic hernia without obstruction or gangrene; I10 Essential (primary) hypertension; F10.20 Alcohol dependence, uncomplicated; Z87.891 Personal history of nicotine dependence; I87.2 Venous insufficiency (chronic) (peripheral); K29.50 Unspecified chronic gastritis without bleeding; B96.81 Helicobacter pylori [H. pylori] as the cause of diseases classified elsewhere

== ENCOUNTER 2018-05-02 11:42 | Emergency (ER) | payer SELFPAY ==
[2018-05-02 11:59] VITALS: TEMP 98.5
--- NOTE | 2018-05-02 13:18 | C.PDOC ---
History Of Present Illness 48 y/o male with a PMHx of alcohol abuse and cirrhosis, presents to the ED complaining of abdominal pain for the last 3 days. Pain is worse over the lower abdomen. Associated with chills and diarrhea. Patient has a previous hx of asc ites and is s/p paracentesis in February 2018. No fevers. No other complaints. Time Seen by Provider: 05/02/18 13:02 Chief Complaint (Nursing): Abdominal Pain History Per: Patient History/Exam Limitations: no limitations Onset/Duration Of Symptoms: Days (3) Current Symptoms Are (Timing): Still Present Past Medical History Reviewed: Historical Data, Nursing Documentation, Vital Signs Vital Signs: Last Vital Signs Temp 98.5 F 05/02/18 11:56 Pulse 89 05/02/18 11:56 Resp 20 05/02/18 11:56 BP 124/81 05/02/18 11:56 Pulse Ox 98 05/02/18 11:56 - Medical History PMH: HTN Denies: Chronic Kidney Disease - [facility] Procedures DRAINAGE OF PERITONEAL CAVITY, PERCUTANEOUS APPROACH (01/28/18) DRAINAGE OF PERITONEAL CAVITY, PERCUTANEOUS APPROACH, DIAGN (01/28/18) EXCISION OF DUODENUM, ENDO, DIAGN (01/28/18) EXCISION OF STOMACH, PYLORUS, ENDO, DIAGN (01/28/18) Family History: States: Unknown Family Hx - Social History Hx Tobacco Use: No Hx Alcohol Use: Yes Hx Substance Use: No - Immunization History Hx Tetanus Toxoid Vaccination: No Hx Influenza Vaccination: No Hx Pneumococcal Vaccination: No Review Of Systems Constitutional: Positive for: Chills. Negative for: Fever Cardiovascular: Negative for: Chest Pain Respiratory: Negative for: Shortness of Breath Gastrointestinal: Positive for: Abdominal Pain, Diarrhea. Negative for: Vomitin g Genitourinary: Negative for: Dysuria, Hematuria Neurological: Negative for: Weakness, Numbness Physical Exam - Physical Exam Appears: Non-toxic, No Acute Distress Skin: Normal Color, Warm, Dry Head: Atraumatic, Normacephalic Eye(s): bilateral: Normal Inspection, PERRL, EOMI Oral Mucosa: Moist Neck: Normal ROM Chest: Symmetrical Cardiovascular: Rhythm Regular, No Murmur Respiratory: Normal Breath Sounds, No Accessory Muscle Use Gastrointestinal/Abdominal: Soft, Tenderness (Minimal suprapubic tenderness), No Distention, No Guarding, No Rebound, No Ascites Extremity: Bilateral: Atraumatic, Normal Color And Temperature Neurological/Psych: Oriented x3, Normal Cranial Nerves Gait: Steady ED Course And Treatment - Laboratory Results Result Diagrams: 05/02/18 13:31 05/02/18 13:31 O2 Sat by Pulse Oximetry: 98 (RA) Pulse Ox Interpretation: Normal Medical Decision Making Medical Decision Making: ro colitis early obstruction ileus - labs imaign gpending Plan: - Blood work - UA labs neg. ct mild enteritis no leukocytosis pain resolved. susepct viral.afebrile stable for outpt fu strict return precautions Disposition - Disposition Referrals: [facility] [Outside] [facility] at [facility] [Outside] Mendez Fong MD [Staff Provider] - Disposition: HOME/ ROUTINE Disposition Time: 15:00 Condition: STABLE Instructions: Acute Abdomen (Belly Pain) Forms: [employer] (Ukrainian) Print Language: DANISH - Clinical Impression Clinical Impression: Abdominal pain - Scribe Statement The provider has reviewed the documentation as recorded by the Juan Manuel Dhillon Provider Attestation: All medical record entries made by the Jose Cruzibe were at my direction and personally dictated by me. I have reviewed the chart and agree that the record accurately reflects my personal performance of the history, physical exam, medical decision making, and the department course for this patient. I have also personally directed, reviewed, and agree with the discharge instructions and disposition.
[2018-05-02] MEDS ORDERED: Sodium Chloride 0.9% 500 ML IV ONE ×2 (13:25→13:36)
[2018-05-02 13:37] LABS: BASO % 0.2 % (0.0-2.0); EOS # 0.1 K/uL (0.0-0.7); EOS % 1.8 % (0.0-4.0); HEMOGLOBIN 10.8 g/dL (12.0-18.0); LYMPH # 1.2 K/uL (1.0-4.3); LYMPH % 26.4 % (20.0-40.0); MEAN CELL VOLUME 98.6 fL (80.0-94.0); MEAN CORPUSCULAR HEMOGLOBIN 35.1 pg (27.0-31.0); MEAN CORPUSCULAR HGB CONC 35.5 g/dL (33.0-37.0); MONO # 0.5 K/uL (0.0-0.8); MONO % 10.5 % (0.0-10.0); NEUT # 2.7 K/uL (1.8-7.0); NEUT % 61.1 % (50.0-75.0); NRBC % 0.1 % (0.0-2.0); RBC 3.09 Mil/uL (4.40-5.90); RED CELL DISTRIBUTION WIDTH 14.7 % (11.5-14.5); WHITE BLOOD COUNT 4.4 K/uL (4.8-10.8)
[2018-05-02 13:41] LABS: SQUAMOUS EPITHIAL < 1 /hpf (0-5); URINE BILIRUBIN NEGATIVE (NEGATIVE); URINE BLOOD NEGATIVE (NEGATIVE); URINE CLARITY Clear (Clear); URINE COLOR Yellow (YELLOW); URINE GLUCOSE (UA) NORMAL (Normal); URINE LEUKOCYTE ESTERASE NEG Leu/uL (Negative); URINE PROTEIN NEGATIVE (NEGATIVE); URINE UROBILINOGEN NORMAL mg/dL (0.2-1.0)
[2018-05-02 13:48] LABS: INR 1.4; PROTHROMBIN TIME 14.9 SECONDS (9.7-12.2)
[2018-05-02 14:09] LABS: ALBUMIN 3.6 g/dL (3.5-5.0); ALT/SGPT 73 U/L (21-72); AST/SGOT 89 U/L (17-59); BLOOD UREA NITROGEN 18 mg/dL (9-20); CALCIUM 8.5 mg/dl (8.6-10.4); GFR NON-AFRICAN AMERICAN > 60; LIPASE 298 U/L (23-300)
[2018-05-02] MEDS ORDERED: Iodixanol 320 MG/ML 100 ML BOTTLE IV ONE (14:52)
[2018-05-02 15:33] VITALS: BP 112/68; PULSE 64; RESP 18
--- NOTE | 2018-05-02 16:31 | CT ---
Date of service: 05/02/2018 PROCEDURE: CT Abdomen and pelvis. HISTORY: Lower abdominal pain and diarrhea in a patient with a history of cirrhosis. COMPARISON: Comparison made with prior CT scan of the abdomen and pelvis dated 11/28/2017. TECHNIQUE: Contiguous axial images of the abdomen and pelvis performed following intravenous injection of approximately 100 cc Visipaque 320 contrast material. Additional 2D sagittal and coronal reformats generated. Reformats generated. Radiation dose: Total exam DLP = 666.06 mGy-cm. This CT exam was performed using one or more of the following dose reduction techniques: Automated exposure control, adjustment of the mA and/or kV according to patient size, and/or use of iterative reconstruction technique. FINDINGS: LOWER THORAX: Heart is enlarged. No significant pericardial effusion. There is a small hiatal hernia with wall thickening of distal esophagus likely due to protrusion of gastric mucosa however esophagitis or other intrinsic/invasive wall lesion not excluded. Passive/dependent type atelectasis seen both posterior lower lung adrian. LIVER: Liver exhibits relatively normal size measuring nearly 17 cm in CC dimension.. Liver demonstrates a nodular surface contour consistent with this patient's history of cirrhosis. Mild diffuse fatty hepatic infiltration. Portal and splenic veins are opacified. GALLBLADDER AND BILE DUCTS: Gallbladder markedly distended. No evidence of intraluminal gallbladder calculi or pericholecystic fluid collections. PANCREAS: Pancreas appears grossly unremarkable without masses collections or calcifications. No significant pancreatic ductal dilatation. SPLEEN: Spleen is enlarged measuring approximately 17.6 cm in CC dimension.. There appears to be mild increased vascularity in the left upper quadrant of the abdomen adjacent to the left kidney and spleen possibly representing varices. ADRENALS: There are no adrenal lesions seen. KIDNEYS AND URETERS: Kidneys demonstrate symmetric size. No evidence of nephrolithiasis or hydronephrosis. BLADDER: Urinary bladder is incompletely distended which in part accounts for thick-walled appearance. Muscular hypertrophy may contribute. REPRODUCTIVE: Unremarkable as visualized APPENDIX: Normal-appearing appendix BOWEL: Evaluation of the bowel is somewhat limited due to the lack of oral contrast material. Stomach is incompletely distended with slight thick-walled appearance. Multiple fluid-filled loops of small bowel are present some of which are minimally distended and a few exhibit wall thickening. Findings may represent nonspecific enteritis. No evidence of acute mechanical bowel obstruction Moderate amount of stool seen throughout the large bowel PERITONEUM: Unremarkable. No fluid collection. No free air. There are small fat containing bilateral inguinal hernias. LYMPH NODES: Unremarkable. No enlarged lymph nodes. VASCULATURE: Unremarkable. No aortic aneurysm. Minimal aortic atherosclerotic calcification or mural plaque present. BONES: Mild multilevel degenerative spondylosis of the lower thoracic and lumbar spine. OTHER FINDINGS: Minor changes of bilateral gynecomastia IMPRESSION: Liver exhibits slightly nodular surface contour and fatty infiltration. There is marked splenomegaly. Findings consistent with this patient's history of cirrhosis.. Possible early developing varices left upper quadrant of the abdomen. Markedly distended gallbladder. Multiple fluid-filled loops of small bowel are present some of which are minimally distended and a few exhibit wall thickening. Findings may represent nonspecific enteritis. No evidence of acute mechanical bowel obstruction. Moderate amount of stool seen throughout the large bowel.
[2018-05-02 19:37] VITALS: O2SAT 98
== END 2018-05-02 16:44 | disposition home or self-care (01) ==
LOC: C.ER 11:42
DX: R10.9 Unspecified abdominal pain (principal); I10 Essential (primary) hypertension; K74.60 Unspecified cirrhosis of liver; Z87.891 Personal history of nicotine dependence
CPT/HCPCS: 74177; 80053; 81001; 83690; 85025; 85610; 85730; 96360; 99284; J7040; Q9967